=== PATIENT | female | born 1955 ===

== ENCOUNTER 2021-05-19 13:21 | Inpatient (IN) | payer BC ==
[~2021-05-19] VITALS: Ht 152.4 cm; Wt 83.9 kg
[2021-05-19] MEDS ORDERED: CLOP75TA28 PO (15:27)
[2021-05-19] MEDS ORDERED: ASPI-1238 PO (15:27)
[2021-05-19] MEDS ORDERED: LISI10TA25 PO (15:27)
[2021-05-19] MEDS ORDERED: ATOR40TA70 PO (15:27)
[2021-05-19] MEDS ORDERED: LOPERAMIDE 2 MG (IMODIUM) TABLET PO PRN (16:30)
[2021-05-19] MEDS ORDERED: DOCUSATE SODIUM 100 MG (COLACE) CAP PO PRN (16:30)
[2021-05-19] MEDS ORDERED: MELATONIN 3 MG TABLET PO PRN (16:30)
[2021-05-19] MEDS ORDERED: guaiFENesin/CODEINE (ROBITUSSIN AC) 10ML UDC PO PRN (16:30)
[2021-05-19] MEDS ORDERED: FLEET ENEMA ADULT 1 EA BTL PR PRN (16:30)
[2021-05-19] MEDS ORDERED: diphenhydrAMINE 25 MG TAB (BENADRYL) PO PRN (16:30)
[2021-05-19] MEDS ORDERED: BISACODYL 10 MG SUPP (DULCOLAX) PR PRN (16:30)
[2021-05-19] MEDS ORDERED: LACTULOSE SYRUP 10GM/15ML (ENULOSE) 30ML UDC PO PRN (16:30)
[2021-05-19] MEDS ORDERED: NALOXONE 0.4 MG/ML 1 ML (NARCAN) VIAL IV PRN (16:30)
[2021-05-19] MEDS ORDERED: ALPRAZolam 0.25 MG (XANAX) TAB PO PRN (16:30)
[2021-05-19] MEDS ORDERED: ONDANSETRON 4 MG (ZOFRAN) ORAL DISSOLVE TAB PO PRN (16:30)
[2021-05-19] MEDS: polyethylene glycoL POWDER 17 GM (MIRALAX) PACK PO SCH (19:54)
[2021-05-19 20:00] VITALS: BP 151/66
[2021-05-19] MEDS: SENNA W/DOCUSATE (SENOKOT S) TABLET PO SCH (20:34)
[2021-05-19] MEDS: DOCUSATE SODIUM 100 MG (COLACE) CAP PO SCH (21:00)
--- NOTE | 2021-05-20 05:24 | PM&R Post Admission Assessment ---
PM&R Date of Visit: May 20, 2021 Time of Visit: 10:00 History of Present Illness CC: CVA HPI: This is a 65yoWF patient who presented from [facility] following a CVA with residual left sided weakness. MRI revealed thalamic CVA. She is doing well currently and has settled in well. No pain reported. I communicate with her with medical Swedish. Checked meds and labs. I have reviewed [facility] notes. [facility] notes: Patient admitted with acute thalmic stroke. No large arterial occlusion was present on CTA head/neck. She has been started on ASA/Plavix therapy. She is working with PT and OT services who are recommending inpatient acute rehab. She has had improvement of her overall left side weakness. There is only mild residual weakness noted of her left environmental services aide strength and upper arm weakness. Her blood pressure is much better controlled on current lisinopril. Case management is assisting with acute rehab bed placement if possible. Admission History and Physical Hx Present Illness Hanh Pierre Luiza a 65 y.o.white femalea patient of Ayesha Yao FNPwho is being admitted through the emergency room with chief complaint of left-sided weakness and numbness. The history and physical was obtained from the patient utilizing a pilot plant supervisor that was approved by the patient. She tells me that she woke up this morning and could not feel her left side and did have a headache around her right eye. She states she still has a dull headache how ever it is much improved since admission. She still not can feel her left side and complains of generalized weakness to the left side. Upon my neurological exam the patient definitely has left-sided weakness, including extremely poor environmental services aide strength in her left hand, mild left arm pronator drift. Very faint left facial droop present. I did recontact the teleneurology who is asked me to repeat a stat CTA which has been ordered. She has already been given aspirin, he does states she is not a TPA candidate at this time. Obviously if there is a large clot we will seek further recommendations at that time. She has been started on low-dose aspirin, and I will start a statin therapy tonight. Routine labs have been ordered. The patient does tell me that she thinks she takes losartan for her blood pressure however after contacting her pharmacy the patien t is not taking any medications at this time. The patient's son did tell me that she does have lupus and does have some generalized weakness however nothing is neurologically specific. The patient does tell me that her mother of a large embolic stroke. She is being admitted for a TIA work-up to include stat CTA of her head and neck this afternoon, we will do an MRI tomorrow. Echocardiogram with bubble study is pending at this time. I will check her hemoglobin A1c along with her lipid panel. We will start blood pressure management in the morning however we will let her permissively be hypertensive less than 170 systolically and less than 90 diastolically. I have explained all of this plan of care to the patient with the chip tuner and she is amenable to this plan of care at this time. Past Medical History: The patient tells me that her past medical history includes high blood pressure and that she thinks she is prediabetic. She did not tell me anything of her lupus. And she could not tell me who her primary care physician was. Past Surgical History: She states her only surgical history has been that of a tonsillectomy. Family History: She states that her both of her parents are , her mother at 91 of a large embolic stroke. She did not know much in about her father. She has 1 sister that is alive but has lower extremity paralysis secondary to an accident. She has 2 brothers both are healthy one lives in [place] and the other 1 lives in [place]. Social History: The patient is however she does have 3 children 2 boys and one girl, one of her boys lives in [facility], one of her boys lives in [place] and her daughter was in [place]. She only completed through the fifth grade. She works at the [employer]. She does not smoke, consume alcohol and denies illicit drug use. She does state that she lives by herself. Allergies: She denies any drug or food allergies however according to her electronic medical record she is allergic to shellfish containing products and pork- containing products. Prior to Admission medications Not on File ROS Constitutional:Denies fever, chills, increased fatigue,malaise or decreased appetite Neurological:She states that she has a headache pretty much every day, she does have some generalized weakness however she states it is much more pronounced in her left side today than normal. She also tells me that she has pretty signi ficant sciatica which is usually down her right side. Head and Neck: Denies pain EYE:no blurred vision, double vision, does complain of some numbness to her right eye. ENT:, denies throat or ear pain, denies increased nasal congestion or rhinorrhea. Cardiac:no chest pain, palpitations Respiratory: Denies cough, shortness of breath, wheezing, or sputum production GI:Denies nausea, vomiting, diarrhea, constipation or abdominal pain :denies dysuria, hematuria or urinary frequency or incontinence. MS:denies edema, pain, tenderness, redness or warmth to any joint area, does complain of generalized weakness hematologic: Denies any bleeding tendencies, or easy bruising Endocrine:denies heat or cold intolerances, does tell me that she is prediabetic Psychiatric: denies any severe depression or thoughts of self harm Integumentary: Denies any rashes, lesions or masses Physical Exam Constitutional: Well developed well nourishedobese female who is non ill appearing at present with stable vital signs Neurological: awake, alert and oriented,there is definitely decreased sensory appreciation noted to her entire left side, she does have some mild to moderate left pronator drift, she also has left arm weakness including pretty significant left hand environmental services aide strength, she utilizes her shoulder muscles to lift her left arm. Head and Neck: No obvious trauam, normocephalic, without masses or lesions. No masses present, no tracheal deviation present. No enlarged thyroid tissue present. No cervical adenopathy present. EYE:PERRL with normal accomodation. EOM's intact ENT:, No oropharynx edema or erythema present. Nasal membranes are pink and moist.Tongue is midline. Cardiac:Regular rate and rhythm, normal S1/S2 present. No gallops, rubs or murmurs appreciated. No carotid bruits are present. All pulses are intact +1 amplitude. All extremities are warm and pink without evidence of edema. No JVD present. Respiratory: Lung sounds are clear throughout all lung maria. Respirationsare regularand even with out use of accessory muscles. Patient has normal chest expansion and symmetry. GI:Abdomen is soft and non tender. No masses are present. Bowel sounds are normal and noted to all quadrants. : No supra pubic or CVA tenderness present. Rectal: Deferred. MS:No joint edema, warmth or redness are present. Joint range of motion is good without any tenderness appreciated Hematologic: No obvious bruising is noted. Psychiatric: Patient is pleasant, smiling and maintains eye contact during conversation. Integumentary: No rashes, lesions or masses are noted. Skin is warm, dry and pink in color. Mucous membranes are pink and moist. Adequate capillary refill present. Narrative: XR CHEST PA OR AP 1 VW Ordering provider: EMMY RYAN History: 65 years Female with See Reason for Exam. Other - Please see comments. Weakness. Technique: Single view of the chest. Comparison: 04/05/2019. FINDINGS: Pulmonary vascular congestion. Mild hazy opacity in the medial right lung base. No pneumothorax nor pleural effusion. Heart size is normal. No acute displaced fracture. CT HEAD WO CONTRAST (Final result) Result time05/11/21 10:47:55 Final result by Dane Calle DO (05/11/21 10:47:55) No acute intracranial hemorrhage, mass effect or midline shift. Narrative: CT head without contrast 05/11/2021 Dictated from location 12 INDICATION: 65 years Female presents with paresthesia COMPARISON: None TECHNIQUE: Contiguous axial head CT was performed. The examination was performed with mA or KV adjustment according to patient size, or iterative reconstruction technique. FINDINGS: There is no acute intracranial hemorrhage, mass effect or midline shift. The ventricles are symmetric and not dilated. The brain parenchyma and cook-white matter differentiation are maintain. There is tiny calcification in the medial superior left temporal lobe. The sulci are age appropriate. The basal cisterns are clear. The bony calvarium and skull base are intact. The mastoid air cells are clear. The paranasal sinuses are clear. The globes and orbits are symmetric. Impression Principal Problem: Transient ischemic attack (TIA) Active Problems: Essential hypertension Intractable chronic cluster headache Systemic lupus erythematosus (SLE) inhibitor Plan 1. Admit observation 2. NIH stroke scale 3. Reconsult teleneurology 4. Start aspirin therapy tomorrow 5. Add statin 6. Stat CTA of brain and neck 7. MRI tomorrow 8. Echo with bubble study 9. Allow permissive hypertension systolic less than 170 diastolic less than 95 10. Start antihypertensives tomorrow 11. Check hemoglobin A1c 12. Check lipid panel 13. PT and OT consult 14. Telemetry monitoring 15. Low-dose Xarelto for VTE prophylaxis 16. Other orders as needed PIYUSH Waite-BC Cosigned by: Trena Romero DO at 05/11/2021 9:51 PM Past Ovpqkyz-Vadivk-Bydehx Hx Past Med/Social Hx: Reviewed Nursing Past Med/Soc Hx, Reviewed and Corrections made Patient Social History Marrital Status: Employed/Student: employed ([employer]) Alcohol Use: Denies Use Smoking Status: Never a Smoker Past Medical History Neurological: Stroke PM&R Allergy/Meds/Data Review Allergies Coded Allergies: Pork/Porcine Containing Products (Verified Allergy, Unknown, Hives, 05/19/21) shellfish derived (Verified Allergy, Unknown, Hives, 05/19/21) Home Medications Scheduled Aspirin (Aspirin EC), 81 MG PO DAILY, (Reported) Atorvastatin Calcium (Atorvastatin Calcium), 40 MG PO HS, (Reported) Clopidogrel Bisulfate (Clopidogrel), 75 MG PO DAILY, (Reported) Lisinopril (Lisinopril), 10 MG PO DAILY, (Reported) Current Medications Current Medications Reviewed Review of Systems Constitutional: see HPI, malaise, weakness EENTM: no symptoms reported Respiratory: no symptoms reported Cardiovascular: no symptoms reported Gastrointestinal: no symptoms reported Genitourinary: no symptoms reported Musculoskeletal: no symptoms reported Skin: no symptoms reported Psychiatric/Neurological: Depressed, Numbness, Weakness Physical Exam Physical Exam Vital Signs Vital Signs - First Documented 05/19/21 05/19/21 16:54 20:00 Temp 36.5 Pulse 74 Resp 20 B/P (MAP) 151/66 (94) Pulse Ox 97 O2 Delivery Room Air Capillary Refill : Height, Weight, BMI Height: '" Weight: lbs. oz. kg; 34.18 BMI Method: General Appearance: No Apparent Distress, WD/WN, Obese Eyes: Bilateral Eye Normal Inspection, Bilateral Eye PERRL HEENT: PERRL/EOMI, Normal ENT Inspection, Pharynx Normal Neck: Full Range of Motion, Normal Inspection, Non Tender, Supple, Carotid Bruit Respiratory: Chest Non Tender, Lungs Clear, Normal Breath Sounds, No Accessory Muscle Use, No Respiratory Distress Cardiovascular: Regular Rate, Rhythm, No Edema, No Gallop, No JVD, No Murmur, Normal Peripheral Pulses Gastrointestinal: Normal Bowel Sounds, No Organomegaly, No Pulsatile Mass, Non Tender, Soft Back: Normal Inspection, No CVA Tenderness, No Vertebral Tenderness Extremity: Normal Capillary Refill, Normal Inspection, Normal Range of Motion, Non Tender, No Calf Tenderness, No Pedal Edema Neurologic/Psychiatric: Alert, Oriented x3, Normal Mood/Affect, Abnormal Gait (off blaance), Motor Weakness (left sided but generalized) Skin: Normal Color, Warm/Dry Lymphatic: No Adenopathy PM&R Medical Assessment & Plan REHAB/MEDICAL ASSESSMENT AND PLAN: REHAB IMPAIRMENT GROUP: CVA ETIOLOGIC DIAGNOSIS: CVA The comorbidities that impact the patients function and/or functional outcome by: Swedish speaking, lives alone, newly retired, fall risk REHAB PLAN: The patient is being admitted to our comprehensive inpatient rehabilitation facility and can tolerate the intensity of service consisting of at least: 180 minutes of therapy a day, 5 out of 7 days a week Rehab treatment will consist of: PT OT will focus on regaining ambulatory skills and fall risk prevention and increase ADL's in order to return home to live alone The patient/family has a good understanding of our discharge process and will benefit from an interdisciplinary inpatient rehabilitation program. The patient has potential to make improvement and is in need of at least two of the following multidisciplinary therapies including but not limited to physical, occupational, speech, and prosthetics and orthotics. Additionally the patient will need services from respiratory, nutritional services, wound care, psychology, etc. (Customize this to each patient). Given the patients complex condition and risk of further medical complications, rehabilitation services cannot be safely or effectively provided at a lower level of care such as a snf facility. BARRIERS TO DISCHARGE: Lives alone ESTIMATED LOS: 10 days DISPOSITION: Home RELEVANT CHANGES SINCE PREADMISSION SCREENING: I have compared the patients medical and functional status at the time of the preadmission screening and there are: no changes PROGNOSIS: Good REHABILITATION GOALS: 1. PT OT will focus on regaining ambulatory skills and fall risk prevention and increase ADL's in order to return home to live alone All the above goals were reviewed with the patient and he/she is in agreement. By signing this document, I acknowledge that I have personally performed a full physical examination on this patient within 24 hours of admission to this inpatient rehabilitation facility and have determined the patient to be able to tolerate the above course of treatment at an intensive level for a reasonable period of time. I will be completing a detailed individualized Plan of Care for this patient by day #4 of the patients stay based upon the Preadmission Screen, the Post-Admission Evaluation, and the therapy evaluations. Admission Dx/Comorbidities: (1) CVA (cerebral vascular accident) ICD Codes: I63.9 - Cerebral infarction, unspecified Assessment/Plan Assessment and Plan Assess & Plan/Chief Complaint Assessment: CVA with left sided weakness Swedish speaking only HTN HLP Cluster NEIL hx Plan: IRF protocol Monitor BP Cardiology consultation KRYSTIAN ROSADO DO May 20, 2021 05:24
[2021-05-20 05:50] LABS: BASOPHILS # (AUTO) 0.1 10^3/uL (0.0-0.1); BASOPHILS % (AUTO) 1 % (0-10); EOSINOPHILS # (AUTO) 0.1 10^3/uL (0.0-0.3); EOSINOPHILS % (AUTO) 2 % (0-10); HEMATOCRIT 40 % (35-52); HEMOGLOBIN 12.2 g/dL (11.5-16.0); LYMPHOCYTES # (AUTO) 2.1 10^3/uL (1.0-4.0); LYMPHOCYTES % (AUTO) 33 % (12-44); MEAN CORPUSCULAR HEMOGLOBIN 29 pg (25-34); MEAN CORPUSCULAR HGB CONC 31 g/dL (32-36); MEAN CORPUSCULAR VOLUME 94 fL (80-99); MEAN PLATELET VOLUME 9.5 fL (9.0-12.2); MONOCYTES # (AUTO) 0.5 10^3/uL (0.0-1.0); MONOCYTES % (AUTO) 8 % (0-12); NEUTROPHILS # (AUTO) 3.5 10^3/uL (1.8-7.8); NEUTROPHILS % (AUTO) 55 % (42-75); PLATELET COUNT 284 10^3/uL (130-400); WHITE BLOOD COUNT 6.3 10^3/uL (4.3-11.0)
[2021-05-20 05:58] LABS: ALBUMIN 3.8 GM/DL (3.2-4.5)
[2021-05-20 05:59] LABS: POTASSIUM 4.3 MMOL/L (3.6-5.0)
[2021-05-20 06:00] LABS: CALCIUM 9.6 MG/DL (8.5-10.1)
[2021-05-20 06:01] LABS: TOTAL PROTEIN 7.4 GM/DL (6.4-8.2)
[2021-05-20 06:03] LABS: BILIRUBIN,TOTAL 0.4 MG/DL (0.1-1.0)
[2021-05-20 06:05] LABS: CREATININE SERUM 0.73 MG/DL (0.60-1.30)
[2021-05-20 07:40] VITALS: BP 138/63
[2021-05-20] MEDS: CLOPIDOGREL 75 MG (PLAVIX) TABLET PO SCH (08:13)
[2021-05-20] MEDS: lisINopril 10 MG (PRINIVIL) TABLET PO SCH (08:13)
[2021-05-20] MEDS: ASPIRIN E.C. 81 MG (ECOTRIN) TAB PO SCH (08:13)
[2021-05-20] MEDS: polyethylene glycoL POWDER 17 GM (MIRALAX) PACK PO SCH ×2 (08:14→19:28)
[2021-05-20] MEDS: SENNA W/DOCUSATE (SENOKOT S) TABLET PO SCH ×2 (08:15→19:28)
[2021-05-20] MEDS: DOCUSATE SODIUM 100 MG (COLACE) CAP PO SCH ×2 (09:00→19:27)
--- NOTE | 2021-05-20 11:08 | Occupational Ther Daily Note ---
OT Current Status-Daily Note Subjective Pt denies any pain. She frequently thanked God for getting better. Mental Status/Objective Patient Orientation: Person, Situation Pt able to understand very little Tanzanian. Google translate utilized for PLOF information. Pt appeared to have some comprehension deficits, but difficulty to fully assess cognition secondary to language barrier. She was able to follow visual cues during functional assessment. ADL-Treatment Therapy Code Descriptions/Definitions Functional Brinson Measure: 0=Not Assessed/NA 4=Minimal Assistance 1=Total Assistance 5=Supervision or Setup 2=Maximal Assistance 6=Modified Brinson 3=Moderate Assistance 7=Complete IndependenceSCALE: Activities may be completed with or without assistive devices. 0-Cyfzhuexix-xgiqpuh completes the activity by him/herself with no assistance from a helper. 5-Set-up or Clean-up Assistance-helper sets up or cleans up; patient completes activity. [place] assists only prior to or following the activity. 4-Supervision or Touching Assistance-helper provides verbal cues and/or touching/steadying and/or contact guard assistance as patient completes activity. Assistance may be provided throughout the activity or intermittently. 3-Partial/Moderate Assistance-helper does LESS THAN HALF the effort. [place] lifts, holds or supports trunk or limbs, but provides less than half the effort. 2-Substantial/Maximal Assistance-helper does MORE THAN HALF the effort. [place] l ifts or holds trunk or limbs and provides more than half the effort. 2-Uwdntywob-oyabgd does ALL the effort. Patient does none of the effort to complete the activity. Or, the assistance of 2 or more helpers is required for the patient to complete the activity. If activity was not attempted, code reason: 7-Patient Refused. 9-Not Applicable-not attempted and the patient did not perform the activity before the current illness, exacerbation or injury. 10-Not Attempted due to Environmental Limitations-(lack of equipment, weather restraints, etc.). 88-Not Attempted due to Medical Conditions or Safety Concerns. Oral Hygiene (QC): 4 (sup) Bathing Location: L Arm, R Arm, L Upper Leg, R Upper Leg, L Lower Leg (includin g foot), R Lower Leg (including foot), Chest, Abdomen, Buttocks, Perineal Area Shower/Bathe Self (QC): 4 (Intermittent CGA for safety only when lifting foot off floor or bending at waist to reach feet. ) Upper Body Dressing (QC): 5 Lower Body Dressing (QC): 4 (Supervision/set up) On/Off Footwear: 4 (CGA as pt stood and slid foot into shoe. ) Toileting Hygiene (QC): 4 (sba) Toilet Transfer (QC): 4 (sba) OT Journeyman Lineman Goals Senior Care Goals 1=Demonstrate adherence to instructed precautions during ADL tasks. 2=Patient will verbalize/demonstrate understanding of assistive devices/modifications for ADL. 3=Patient will improve strength/tolerance for activity to enable patient to perform ADL's. OT Education/Plan Treatment Plan/Plan of Care Patient would benefit from OT for education, treatment and training to promote independence in ADL's, mobility, safety and/or upper extremity function for ADL's. Erica Chun OT May 20, 2021 11:08
--- NOTE | 2021-05-20 11:20 | Occupational Therapy Eval ---
OT Evaluation-General/PLF Medical Diagnosis Admission Date May 19, 2021 at 16:17 Medical Diagnosis: CVA Onset Date: May 11, 2021 Therapy Diagnosis Therapy Diagnosis: Impaired IADLs/ADLs Precautions Precautions/Isolations: Fall Prevention, Standard Precautions Referral Referral Reason: Evaluation/Treatment Medical History Pertinent Medical History: GERD, HTN Additional Medical History DDD, Lupus, DVT Reviewed History: Yes Social History Home: Multilevel Current Living Status: Alone Steps Into Home: 2 Direct admit from [facility] in [facility] with acute thalamic stroke. Prior to admission, pt reports living alone in a 2 story home. All needs can be met on main level. Pt reports having a tub/shower but that the shower head does not work and instead has been standing in tub of water to bathe. She was indep with ADLs and IADLs. 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 She has a niece that lives close by but she reports that she will not be able to assist due to work schedule during days. She also has a sister who lives nearby but verbalizes that her sister recently broke her leg and will also be unable to help. ADL-Prior Level of Function SCALE: Activities may be completed with or without assistive devices. 0-Ufnrkhosmu-fiwzrdq completes the activity by him/herself with no assistance from a helper. 5-Set-up or Clean-up Assistance-helper sets up or cleans up; patient completes activity. [place] assists only prior to or following the activity. 4-Supervision or Touching Assistance-helper provides verbal cues and/or touching/steadying and/or contact guard assistance as patient completes activity. Assistance may be provided throughout the activity or intermittently. 3-Partial/Moderate Assistance-helper does LESS THAN HALF the effort. [place] lifts, holds or supports trunk or limbs, but provides less than half the effort. 2-Substantial/Maximal Assistance-helper does MORE THAN HALF the effort. [place] lifts or holds trunk or limbs and provides more than half the effort. 1-Moqocdyof-qpkgqu does ALL the effort. Patient does none of the effort to complete the activity. Or, the assistance of 2 or more helpers is required for the patient to complete the activity. If activity was not attempted, code reason: 7-Patient Refused. 9-Not Applicable-not attempted and the patient did not perform the activity before the current illness, exacerbation or injury. 10-Not Attempted due to Environmental Limitations-(lack of equipment, weather restraints, etc.). 88-Not Attempted due to Medical Conditions or Safety Concerns. Self Care: Independent Functional Cognition: Independent DME/Equipment: Tub/Shower Drive Self: Yes OT Current Status Subjective Pt denies pain. Frequently thanking God for getting better. Mental Status/Objective Patient Orientation: Person, Situation Pt able to understand very little Turkmen. [employer] translate utilized for PLOF information. Pt appeared to have some comprehension deficits, but difficulty to fully assess cognition secondary to language barrier. She was able to follow visual cues during functional assessment. Current Glasses/Contacts: Yes Hearing Aids: No Dentures/Partials: No Upper Extremity ROM Increased time for L digit opposition. All other joints WFL Upper Extremity Sensation Intact Upper Extremity Strength 3+/5 throughout ADL-Treatment Eating (QC): 5 Oral Hygiene (QC): 4 Shower/Bathe Self (QC): 4 (Intermittent CGA for safety when bending at waist or lifting foot off floor in standing) Upper Body Dressing (QC): 5 Lower Body Dressing (QC): 4 (Sup/SBA) On/Off Footwear (QC): 4 (CGA) Toileting Hygiene (QC): 4 (SBA) Pt sitting in chair at OT arrival. Agreeable to eval. Sit<>Stand with sup, extra time for problem solving correct hand placement. Pt ambulated short distances within room with SBA and use of walker. Without AD, pt needing CGA/Min A, sli ghtly apprehensive when not using assistive device. Shower performed, pt encouraged to perform majority in standing as this is how she performs at baseline. Intermittent CGA for safety as she bent forward at waist or lifted foot off floor in order to reach/wash foot. Intermittent single UE on grab bar throughout task. Pt educated on use of shower chair for improved safety/energy conservation during task. No LOB or unsteadiness noted. She sat on shower chair to don clothing, Sup/set up, no physical assist required. She stood at sink for oral care and to comb hair, zero UE support, sup for safety. Pt appears to have fair activity tolerance throughout ADLs. Intermittent visual cues/hand gestures provided due to language barrier. Education OT Patient Education: Energy conservation, Modified ADL techniques, Progress toward Goal/Update tx plan, Purpose of tx/functional activities, Rehab process Teaching Recipient: Patient Teaching Methods: Demonstration, Discussion Response to Teaching: Verbalize Understanding, Return Demonstration, Reinforce ment Needed OT Short Term Goals Short Term Goals Eatin Oral hygiene: 6 Toileting hygiene: 6 Shower/bathe self: 6 Upper body dressin Lower body dressin Putting on/taking off footwear: 6 OT [facility] Goals [facility] Goals Eating (QC): 6 Oral Hygiene (QC): 6 Toileting Hygiene (QC): 6 Shower/Bathe Self (QC): 6 Upper Body Dressing (QC): 6 Lower Body Dressing (QC): 6 On/Off Footwear (QC): 6 1=Demonstrate adherence to instructed precautions during ADL tasks. 2=Patient will verbalize/demonstrate understanding of assistive devices/ modifications for ADL. 3=Patient will improve strength/tolerance for activity to enable patient to perform ADL's. Pt will complete simple homemaking task with SBA. OT Education/Plan Problem List/Assessment Assessment: Decreased UE Strength, Impaired Funct Balance, Impaired I ADL's Discharge Recommendations Plan/Recommendations: Continue POC Equpiment Recommendations-D/C: Rails on Tub/Shower, Bath Chair Treatment Plan/Plan of Care Treatment,Training & Education: Yes Patient would benefit from OT for education, treatment and training to promote independence in ADL's, mobility, safety and/or upper extremity function for ADL's. Plan of Care: ADL Retraining, Functional Mobility, Group Exercise/Act as Ind, UE Funct Exercise/Act Treatment Duration: Jun 01, 2021 Frequency: At least 5 of 7 days/Wk (IRF) Estimated Hrs Per Day: 1.5 hours per day Agreement: Yes Rehab Potential: Good Time/GCodes Start Time: 10:00 Stop Time: 11:00 Total Time Billed (hr/min): 60 Billed Treatment Time 1, EVL, 1, ADL x3 Erica Chun OT May 20, 2021 11:20
--- NOTE | 2021-05-20 12:38 | Physical Therapy Evaluation ---
PT Evaluation-General Medical Diagnosis Admission Date May 19, 2021 at 16:17 Medical Diagnosis: CVA Onset Date: May 11, 2021 Therapy Diagnosis Therapy Diagnosis: impaired mobility, strength, endurance Precautions Precautions/Isolations: Fall Prevention, Standard Precautions Referral Physician: Christiana Norris DO Reason for Referral: Evaluation/Treatment Medical History Pertinent Medical History: GERD, HTN Reviewed History: Yes Social History Home: Multilevel Current Living Status: Alone Entry Into Home: Stairs With Railing PT Steps Into Home: 2 Prior Prior Level of Function SCALE: Activities may be completed with or without assistive devices. 1-Tzzcvslrhk-pvpsmwg completes the activity by him/herself with no assistance from a helper. 5-Set-up or Clean-up Assistance-helper sets up or cleans up; patient completes activity. [place] assists only prior to or following the activity. 4-Supervision or Touching Assistance-helper provides verbal cues and/or touching/steadying and/or contact guard assistance as patient completes activity. Assistance may be provided throughout the activity or intermittently. 3-Partial/Moderate Assistance-helper does LESS THAN HALF the effort. [place] lifts, holds or supports trunk or limbs, but provides less than half the effort. 2-Substantial/Maximal Assistance-helper does MORE THAN HALF the effort. [place] lifts or holds trunk or limbs and provides more than half the effort. 2-Bvrezdqxq-hskuwt does ALL the effort. Patient does none of the effort to c omplete the activity. Or, the assistance of 2 or more helpers is required for the patient to complete the activity. If activity was not attempted, code reason: 7-Patient Refused. 9-Not Applicable-not attempted and the patient did not perform the activity before the current illness, exacerbation or injury. 10-Not Attempted due to Environmental Limitations-(lack of equipment, weather restraints, etc.). 88-Not Attempted due to Medical Conditions or Safety Concerns. Bed Mobility: 6 Transfers (B,C,W/C): 6 Gait: 6 Stairs: 6 Indoor Mobility (Ambulation): Independent Stairs: Independent PT Evaluation-Current Subjective Patient in recliner pre tx, agrees to PT, has no complaints of pain. Pt/Family Goals to be independent at home Objective Patient Orientation: Person, Situation ROM/Strength ROM Lower Extremities WNL Strength Lower Extremities LLE (hip flexion 3/5, knee flexion 3+/5, knee extension 3+/5, dorsiflexion 3+/5), RLE (hip flexion 4/5, knee flexion 5/5, knee extension 5/5, dorsiflexion 4/5) Neuromuscular (Tone, Coordination, Reflexes) Difficult to test vision due to language barrier but patient states her vision is good. Sensory Vision: Functional Hearing: Functional Sensation Right Lower Extremit: Intact Sensation Left Lower Extremity: Impaired Sensation Lower Extremities Patient seems to have some numbness in her left foot. Transfers Roll Left & Right (QC): 6 Sit to Lying (QC): 6 Lying to Sitting/Side of Bed(Q: 6 Sit to Stand (QC): 4 Chair/Fnf-bn-Vdutc Xfer(QC): 4 Toilet Transfer (QC): 4 Car Transfer (QC): 4 Patient performs bed mobility and supine <-> sit with independence, sit <-> stand and transfers with CGA, car transfer CGA. Patient needs occasional safety cues and cues for hand placement. Gait Does the Patient Walk?: Yes Mode of Locomotion: Walk Anticipated Mode of Locomotion: Walk Walk 10 feet (QC): 4 Walk 50 ft with 2 Turns(QC): 4 Walk 150 ft (QC): 4 Walking 10ft/uneven surface-QC: 4 Distance: 200', 120, Gait Assistive Device: FWW Comments/Gait Description Patient can ambulate 200' with a rolling walker with CGA (including 50' with at least 2 turns of 90 degrees and 10' over an uneven surface). Patient ambulates slowly, has impaired coordination and possibly proprioception in her left leg. Wheelchair Training Wheel 50 ft with 2 turns (QC): 9 Wheel 150 ft (QC): 9 Stairs #of Steps: 4 1 Step (curb) (QC): 4 4 Steps (QC): 4 12 Steps (QC): 88 Patient can go up and down 4 steps using 2 handrails with CGA and cues for foot placement Balance Sitting Static: Normal Sitting Dynamic: Normal Standing Static: Fair Standing Dynamic: Fair Picking up an Object (QC): 4 Treatment NuStep level 5 for 15 min Assessment/Needs Patient in recliner post tx with nurse call, phone, tray, all needs met. Patient has impaired mobility, strength, endurance. She needs CGA for transfers and ambulation, has impaired coordination in her left leg. After getting back to her room she was SOB and clutching her chest. She was asked if she had chest pain and she said she was just tired. She does needs frequent rest breaks due to fatigue. Rehab Potential: Fair PT Short Term Goals Short Term Goals Time Frame: May 27, 2021 Roll Left & Right: 6 Sit to lyin Lying to sitting on side of be: 6 Sit to stand: 4 Chair/ncz-od-mihes transfer: 4 (SBA) Walk 10 feet: 4 (SBA) Walk 50 feet with two turns: 4 (SBA) Walk 150 feet: 4 (SBA) PT Development Scientist Goals Senior Living Goals PT Development Scientist Goals Time Frame: Jun 10, 2021 Roll Left & Right (QC): 6 Sit to Lying (QC): 6 Lying-Sitting on Side/Bed(QC): 6 Sit to Stand (QC): 5 Chair/Xtp-dd-[place] Xfer(QC): 5 Toilet Transfer (QC): 5 Car Transfer (QC): 5 Does the Patient Walk: Yes Walk 10 feet (QC): 5 Walk 50ft with 2 Turns (QC): 5 Walk 150 ft (QC): 5 Walking 10ft on Uneven Surface: 5 1 Step (curb) (QC): 4 (SBA) 4 Steps (QC): 4 (SBA) 12 Steps (QC): 88 Picking up an Object (QC): 4 (SBA) Wheel 50 feet with 2 turns (QC: 9 Wheel 150 feet: 9 PT Plan Problem List Problem List: Activity Tolerance, Functional Strength, Safety, Balance, Gait, Transfer, Bed Mobility, ROM Treatment/Plan Treatment Plan: Continue Plan of Care Treatment Plan: Bed Mobility, Education, Functional Activity Tee, Functional Strength, Group Therapy, Gait, Safety, Therapeutic Exercise, Transfers Treatment Duration: Jun 10, 2021 Frequency: At least 5 of 7 days/Wk (IRF) Estimated Hrs Per Day: 1.5 hours per day Patient and/or Family Agrees t: Yes Safety Risks/Education Patient Education: Gait Training, Transfer Techniques, Steps, Correct Positioning, Safety Issues Teaching Recipient: Patient Teaching Methods: Demonstration, Discussion Response to Teaching: Reinforcement Needed Discharge Recommendations Plan Patient will perform bed mobility and transfer training, balance and endurance training, functional strengthening, stair training, gait training, and education, to improve functional mobility and independence at home. Therapy Discharge Recommendati: Home & Family, Post Acute PT Time/GCodes Time In: 1100 Time Out: 1200 Total Billed Treatment Time: 60 Total Billed Treatment 1 visit EVM 30' EX 15' GT 15' AWAIS TERRY PT May 20, 2021 12:38
--- NOTE | 2021-05-20 14:27 | Therapy Group Daily Note ---
Therapy Daily Group Note Patient Education Topic Other List Below (ARU, transfers, bed mobility) Exercises LE Seated Exercise, UE Exercise Session Ratio (pt:therapist): 4:1 Goal of Session: Education on ARU Expectations, UE/LE Strengthing, Safety with Transfers Goal Met for this Session: Yes Pt Benefit of Group: Contributions to Others, F/U Use of Strategies @Home, Increased Functional Safety, Increased Functional Strength, Improved Cognition, Recognition of Peers, Socialization Other/Notes Pt ambulated using FWW to [facility] area for OT/PT group. Group consisted of introductions (name, place living, favorite restaurant), socialization, B UE/LE seated exercises and education on bed mobility/transfers. Pt introduced self appropriately and actively listened to peers. Pt acknowledged understanding of educational topics by nodding head in affirmation/verbalization. Pt able to complete B UE/LE seated exercises without difficulty. After therapy, pt lying in bed with call light/phone in reach. All needs met in room. Start Time: 13:00 Stop Time: 14:10 Total Billed Treatment Time: 70 Total Billed Treatment 1-SASHA DYSNO May 20, 2021 14:27
[2021-05-20 20:00] VITALS: BP 138/77
--- NOTE | 2021-05-21 05:39 | PM&R Progress Note ---
Subjective HPI/CC On Admission Date Seen by Provider: May 21, 2021 Time Seen by Provider: 12:00 Subjective/Events-last exam 05/21/2021: Patient doing really well Reports left-sided tingling Bowels moved yesterday Left shoulder pain alleviated with Tylenol Walks pretty well Review of Systems General: Fatigue, Malaise Neurological: Weakness, Incoordination Objective Exam Vital Signs Vital Signs Date Time Temp Pulse Resp B/P (MAP) Pulse Ox O2 Delivery O2 Flow Rate FiO2 05/21/21 20:10 Room Air 05/21/21 20:00 36.4 78 20 122/59 (80) 95 Capillary Refill : General Appearance: No Apparent Distress, WD/WN, Chronically ill, Obese HEENT: PERRL/EOMI, Normal ENT Inspection, Pharynx Normal Neck: Full Range of Motion, Normal Inspection, Non Tender, Supple, Carotid Bruit Respiratory: Chest Non Tender, Lungs Clear, Normal Breath Sounds, No Accessory Muscle Use, No Respiratory Distress Cardiovascular: Regular Rate, Rhythm, No Edema, No Gallop, No JVD, No Murmur, Normal Peripheral Pulses Gastrointestinal: Normal Bowel Sounds, No Organomegaly, No Pulsatile Mass, Non Tender, Soft Back: Normal Inspection, No CVA Tenderness, No Vertebral Tenderness Extremity: Normal Capillary Refill, Normal Inspection, Normal Range of Motion, Non Tender, No Calf Tenderness, No Pedal Edema Neurologic/Psychiatric: Alert, Oriented x3, Normal Mood/Affect, Abnormal Gait (off blaance), Motor Weakness (left sided but generalized) Skin: Normal Color, Warm/Dry Lymphatic: No Adenopathy Results/Procedures Lab Patient resulted labs reviewed. FIM Transfers Therapy Code Descriptions/Definitions Functional [place] Measure: 0=Not Assessed/NA 4=Minimal Assistance 1=Total Assistance 5=Supervision or Setup 2=Maximal Assistance 6=Modified [place] 3=Moderate Assistance 7=Complete IndependenceSCALE: Activities may be completed with or without assistive devices. 6-Evezmckwea-aavdpbx completes the activity by him/herself with no assistance from a helper. 5-Set-up or Clean-up Assistance-helper sets up or cleans up; patient completes activity. [place] assists only prior to or following the activity. 4-Supervision or Touching Assistance-helper provides verbal cues and/or touching/steadying and/or contact guard assistance as patient completes activity. Assistance may be provided throughout the activity or intermittently. 3-Partial/Moderate Assistance-helper does LESS THAN HALF the effort. [place] lifts, holds or supports trunk or limbs, but provides less than half the effort. 2-Substantial/Maximal Assistance-helper does MORE THAN HALF the effort. [place] lifts or holds trunk or limbs and provides more than half the effort. 2-Daoltrjwd-vlqopz does ALL the effort. Patient does none of the effort to complete the activity. Or, the assistance of 2 or more helpers is required for the patient to complete the activity. If activity was not attempted, code reason: 7-Patient Refused. 9-Not Applicable-not attempted and the patient did not perform the activity before the current illness, exacerbation or injury. 10-Not Attempted due to Environmental Limitations-(lack of equipment, weather restraints, etc.). 88-Not Attempted due to Medical Conditions or Safety Concerns. Roll Left to Right (QC): 6 Sit to Lying (QC): 6 Sit to Stand (QC): 4 Chair/Peg-gg-Ruaqd Xfer(QC): 4 Car Transfer (QC): 4 Gait Training Does the Patient Walk?: Yes Walk 10 feet (QC): 4 Walk 50 ft with 2 Turns(QC): 4 Walk 150 ft (QC): 4 Walking 10ft/uneven surface-QC: 4 Gait Assistive Device: FWW Wheelchair Training Does the Pt Use a Wheelchair?: No Wheel 50 ft with 2 turns (QC): 9 Wheel 150 ft (QC): 9 Stair Training #of Steps: 4 1 Step (curb) (QC): 4 4 Steps (QC): 4 12 Steps (QC): 88 Balance Picking up an Object (QC): 4 ADL-Treatment Eating (QC): 5 Oral Hygiene (QC): 4 Shower/Bathe Self (QC): 4 (Intermittent CGA for safety when bending at waist or lifting foot off floor in standing) Upper Body Dressing (QC): 5 Lower Body Dressing (QC): 4 (Sup/SBA) On/Off Footwear (QC): 4 (CGA) Toileting Hygiene (QC): 4 (SBA) Assessment/Plan Assessment and Plan Assess & Plan/Chief Complaint Assessment: CVA with left sided weakness Kiswahili speaking only HTN HLP Cluster NEIL hx Plan: IRF protocol Monitor BP Cardiology consultation 05/21/2021: Supportive care Intensive rehab Work on balance (1) CVA (cerebral vascular accident) KRYSTIAN ROSADO DO May 21, 2021 05:39
--- NOTE | 2021-05-21 05:41 | Individualized Plan of Care ---
Individualized Plan of Care Rehab Nursing IPOC Order Admission Date May 19, 2021 at 16:17 Current Orders Orders Admission Order(Inpt,Obs,Sdc) (05/19/21 16:26) Vital Signs: Per Unit Policy ( ,,00 (05/19/21 16:26) Elia Quigley (05/19/21 16:26) Sequential Compression Device .admit (05/19/21 16:26) Miniature Set Designer-Inpt Rehab Con (05/19/21 16:26) Rehab Nursing Orders-Ipoc (05/19/21 16:26) Physical Therapy Rehab Orders (05/19/21 16:26) Occupational Therapy Rehab Ord (05/19/21 16:26) Speech Therapy Rehab Orders (05/19/21 16:26) Cbc With Automated Diff (05/20/21 06:00) Comprehensive Metabolic Panel (05/20/21 06:00) Precautions (Aru) (05/19/21 16:26) Weekly Weight WEEK (05/19/21 16:26) Rehab-Intensity Of Therapy (05/19/21 16:26) Initiate Admission Nursing Pro .admission (05/19/21 16:26) Alprazolam Tablet (Xanax Tablet) (05/19/21 16:30) Calcium Carbonate Chew Tablet (Antacid C (05/19/21 16:30) Diphenhydramine Tablet (Benadryl Tablet) (05/19/21 16:30) Docusate Sodium Capsule (Colace Capsule) (05/19/21 21:00) Docusate Sodium Capsule (Colace Capsule) (05/19/21 16:30) Bisacodyl Suppository (Dulcolax Supposit (05/19/21 16:30) Lactulose Oral Solution (Enulose Oral So (05/19/21 16:30) Na Phos/Na Biphos Enema (Fleet Enema Curtis (05/19/21 16:30) Guaifenesin/Codeine Syrup (Robitussin Ac (05/19/21 16:30) Loperamide Tablet (Imodium Tablet) (05/19/21 16:30) Melatonin Tablet (Melatonin Tablet) (05/19/21 16:30) Polyethylene Glycol Powder Pkt (Miralax (05/19/21 21:00) Ondansetron Oral Dissolve Tab (Zofran (05/19/21 16:30) Senna S Tablet (Senokot S Tablet) (05/19/21 21:00) Therapeutic Activity Goals: .PRN (05/19/21 16:26) Nursing Communication (Order) (05/19/21 ) Naloxone Injection (Narcan Injection) (05/19/21 16:30) Acetaminophen Tablet (Tylenol Tablet) (05/19/21 16:30) Code/Resuscitation (05/19/21 16:26) Initiate Admission Nursing Pro .admission (05/19/21 16:26) Aspirin Enteric Coated Tablet (Ecotrin T (05/20/21 09:00) Atorvastatin Tablet (Lipitor Tablet) (05/19/21 21:00) Clopidogrel Tablet (Plavix Tablet) (05/20/21 09:00) Lisinopril Tablet (Zestril Tablet) (05/20/21 09:00) Heart Healthy (05/19/21 Dinner) Consult Cardiology (05/20/21 12:15) Patient Visit (05/20/21 ) Pt Eval Moderate Complexity (05/20/21 ) Exercise Therap, Ea 15 Min (05/20/21 ) Gait Training, Ea 15 Min (05/20/21 ) Follow-Up Appointment D/C (05/20/21 13:18) Patient Visit (05/20/21 ) Rehab Nursing Orders: Ongoing Assess. of Cognitive Status, Ongoing Assess. of Function Status, Bladder Management, Bladder Scan, Bladder Training, Bowel M anagement, Bowel Training, Disease Management & Educaiton, DVT Prophylaxis, Fall Prevention, Fluid/Electrolyte/Nutrition Mgmt, Infection Prevention, Medication Management & Education, Management of Risks & Complications, Management of Skin Intergrity, Nutrition Management, Pain Management, Patient/Family Support, Safety Management Intensity of Therapy to be met Patient to be seen: Min.3h per day/5 of 7d PT IPOC Problem List: Activity Tolerance, Functional Strength, Safety, Balance, Gait, Transfer, Bed Mobility, ROM Treatment Plan: Continue Plan of Care Bed Mobility, Education, Functional Activity Tee, Functional Strength, Group Therapy, Gait, Safety, Therapeutic Exercise, Transfers Treatment Duration: Jun 10, 2021 Frequency: At least 5 of 7 days/Wk (IRF) Estimated Hrs Per Day: 1.5 hours per day OT IPOC Problems: Decreased UE Strength, Impaired Funct Balance, Impaired I ADL's OT Treatment, Training and Edu: Yes Plan of Care: ADL Retraining, Functional Mobility, Group Exercise/Act as Ind, UE Funct Exercise/Act Treatment Duration: Jun 01, 2021 Frequency: At least 5 of 7 days/Wk (IRF) Estimated Hrs Per Day: 1.[address] IPOC Speech Therapy Treatment Plan: Discontinue ST Treatment Duration: May 21, 2021 Frequency: Modified Program (IRF) Estimated Hrs Per Day: Other Miniature Set Designer/Case Mgmt Miniature Set Designer/Case Managemen: Discharge Planning Dietitian/American History Professor Dietitian/American History Professor to monitor nutritional status and make changes and/or recommendations as needed and work with speech pathology on dietary upgrades as the occur. Physician IPOC Medical Issues being managed closely and that require the 24 hour availability of a physician: Patient with catastrophic CVA with new deficits and balance dysfunction will need close monitoring for decompensation Medical Issues: Bowel/Bladder Function, DVT Prophylaxis, Falls Precautions, Fluid/Electrolyte/Nutrition Balance, Infection Protection, Pain Management Brief Synthesis of Preadmission Screen, Post-Admission Evaluation, and Therapy Evaluations: PT OT will focus on regaining function of ambulatory skills with fall risk prevention and increasing ADL independence Medical Prognosis: Good Anticipated Length of Stay: 10 days KRYSTIAN ROSADO DO May 21, 2021 05:41
[2021-05-21] MEDS: DOCUSATE SODIUM 100 MG (COLACE) CAP PO SCH ×2 (07:33→19:26)
[2021-05-21] MEDS: SENNA W/DOCUSATE (SENOKOT S) TABLET PO SCH ×2 (07:33→19:26)
[2021-05-21] MEDS: lisINopril 10 MG (PRINIVIL) TABLET PO SCH (07:33)
[2021-05-21] MEDS: ASPIRIN E.C. 81 MG (ECOTRIN) TAB PO SCH (07:33)
[2021-05-21] MEDS: CLOPIDOGREL 75 MG (PLAVIX) TABLET PO SCH (07:33)
[2021-05-21] MEDS: ACETAMINOPHEN 500 MG TAB (TYLENOL) PO PRN (07:36)
[2021-05-21 07:50] VITALS: BP 142/64
[2021-05-21] MEDS: polyethylene glycoL POWDER 17 GM (MIRALAX) PACK PO SCH ×2 (08:04→19:26)
--- NOTE | 2021-05-21 08:53 | Physical Therapy Daily Note ---
PT Daily Note-Current Subjective Pt amb to bathroom w/ A from RN upon arrival. Pt agrees to tx. Pt doesn't c/o any pain. Mental Status Patient Orientation: Person, Situation Transfers SCALE: Activities may be completed with or without assistive devices. 5-Wlfecmsazv-bwcwlzy completes the activity by him/herself with no assistance from a helper. 5-Set-up or Clean-up Assistance-helper sets up or cleans up; patient completes activity. [place] assists only prior to or following the activity. 4-Supervision or Touching Assistance-helper provides verbal cues and/or touching/steadying and/or contact guard assistance as patient completes activity. Assistance may be provided throughout the activity or intermittently. 3-Partial/Moderate Assistance-helper does LESS THAN HALF the effort. [place] lifts, holds or supports trunk or limbs, but provides less than half the effort. 2-Substantial/Maximal Assistance-helper does MORE THAN HALF the effort. [place] lifts or holds trunk or limbs and provides more than half the effort. 3-Dlzqrcimt-subelm does ALL the effort. Patient does none of the effort to complete the activity. Or, the assistance of 2 or more helpers is required for the patient to complete the activity. If activity was not attempted, code reason: 7-Patient Refused. 9-Not Applicable-not attempted and the patient did not perform the activity before the current illness, exacerbation or injury. 10-Not Attempted due to Environmental Limitations-(lack of equipment, weather restraints, etc.). 88-Not Attempted due to Medical Conditions or Safety Concerns. Sit to Stand (QC): 5 Gait Training Does the Patient Walk?: Yes Distance: 250' x2 Walk 10 feet (QC): 4 Walk 50 ft with 2 Turns(QC): 4 Walk 150 ft (QC): 4 Gait Persons Needed: 1 Gait Assistive Device: FWW Pt requires CGAw/ amb. Pt shows slight delay in advancement of L LE. Overall gait steady w/ even stride. Exercises Seated Therapy Exercises: Long arc quads Seated Reps: 20 Standing: Hip Abduction, Hamstring curls, Heel/toe raises, Marching, Mini squats, Sit to Stand, Side steps, Unilateral stance Standing Reps: 20 Pt SLS 1 min on each LE w/ support from B UE on // bars. Treatments Pt uses bathroom at beginning of tx, pt able to doff/don pants CGA. Pt washes hands and brushes teeth unsupported w/ CGA. Pt amb around IRU and enters therapy gym. Pt performs standing ex followed by seated ex. Pt amb around unit and returns to room. Pt left with all needs met, call light in hand. Assessment Current Status: Good Progress Pt CGA for all transfers and amb. Limited activity d/t language barrier. PT Short Term Goals Short Term Goals Time Frame: May 27, 2021 Roll Left & Right: 6 Sit to lyin Lying to sitting on side of be: 6 Sit to stand: 4 Chair/hci-mn-cxeoz transfer: 4 (SBA) Walk 10 feet: 4 (SBA) Walk 50 feet with two turns: 4 (SBA) Walk 150 feet: 4 (SBA) PT Income Tax Expert Goals Fci Goals PT Fci Goals Time Frame: Jun 10, 2021 Roll Left & Right (QC): 6 Sit to Lying (QC): 6 Lying-Sitting on Side/Bed(QC): 6 Sit to Stand (QC): 5 Chair/Nrn-ky-Rfwqa Xfer(QC): 5 Toilet Transfer (QC): 5 Car Transfer (QC): 5 Does the Patient Walk: Yes Walk 10 feet (QC): 5 Walk 50ft with 2 Turns (QC): 5 Walk 150 ft (QC): 5 Walking 10ft on Uneven Surface: 5 1 Step (curb) (QC): 4 (SBA) 4 Steps (QC): 4 (SBA) 12 Steps (QC): 88 Picking up an Object (QC): 4 (SBA) Wheel 50 feet with 2 turns (QC: 9 Wheel 150 feet: 9 PT Plan Treatment/Plan Treatment Plan: Continue Plan of Care Treatment Plan: Bed Mobility, Education, Functional Activity Tee, Functional Strength, Group Therapy, Gait, Safety, Therapeutic Exercise, Transfers Treatment Duration: Jun 10, 2021 Frequency: At least 5 of 7 days/Wk (IRF) Estimated Hrs Per Day: 1.5 hours per day Patient and/or Family Agrees t: Yes Safety Risks/Education Patient Education: Gait Training, Correct Positioning, Safety Issues Teaching Recipient: Patient Teaching Methods: Demonstration, Discussion Response to Teaching: Verbalize Understanding, Return Demonstration, Reinforcement Needed Time/GCodes Time In: 800 Time Out: 900 Total Billed Treatment Time: 60 Total Billed Treatment 1, FA, GT, EX x2 KIM,[facility] FRIT MAKER May 21, 2021 08:53
--- NOTE | 2021-05-21 10:22 | Consultation-Cardiology ---
HPI-Cardiology Cardiology Consultation: Date of Consultation 05/21/21 Time Seen by a Provider: 09:45 Date of Admission Attending Physician Christiana Norris DO Admitting Physician [place],Local Physician Consulting Physician SPENSER WOODS MD, MA, FACP, FACC, FSCAI, CCDS Physician requesting Cardiology consult HPI: Chief Complaint: Reason for consultation: Recent CVA, Hypertension HPI 65 yo woman recently transferred to Dr Norris's service at Inpatient Rehab at this hospital from [facility] where she had presented with L-sided weakness on 05/11/21 and was diagnosed with thromboembolic CVA (non-hemorragic) and placed on dual antiplatelet therapy. She speaks Slovak but was able to communicate adequately in Chinese at the time of this exam. She notes mild L-sided weakness, better compared to time of admission. She denies cp or palp or syncope or shortness of breath or swelling. She notes a h/o hypertension. Review of Systems-Cardiology Review of Systems Constitutional: malaise; No weight loss, No weight gain Eyes: No vision change Ears/Nose/Throat: No ear discharge, No nasal drainage, No recent hearing loss Respiratory: As described under HPI Cardiovascular: As described under HPI Gastrointestinal: No diarrhea, No nausea, No vomiting Genitourinary: No dysuria Musculoskeletal: No back pain Skin: No rash, No ulcerations Psychiatric/Neurological: As described under HPI Hematologic: No bleeding abnormalities ZFU-Apovkg-Mmzzic Hx Patient Social History Marrital Status: Employed/Student: employed ([employer]) Smoking Status: Never a Smoker Have you traveled recently?: No Alcohol Use?: No Pt feels they are or have been: No Past Medical History PMH As described under Assessment. Family Medical History Family Medical History: She does not report a fam h/o early CAD Allergies and Home Medications Allergies Coded Allergies: Pork/Porcine Containing Products (Verified Allergy, Unknown, Hives, 05/19/21) shellfish derived (Verified Allergy, Unknown, Hives, 05/19/21) Home Medications Aspirin 81 Mg Tablet., 81 MG PO DAILY, (Reported) Last Action: Continued Atorvastatin Calcium 40 Mg Tablet, 40 MG PO HS, (Reported) Last Action: Continued Clopidogrel Bisulfate 75 Mg Tablet, 75 MG PO DAILY, (Reported) Last Action: Continued Lisinopril 10 Mg Tablet, 10 MG PO DAILY, (Reported) Last Action: Continued Patient Home Medication List Home Medication List Reviewed: Yes Physical Exam-Cardiology Physical Exam Vital Signs/I&O 05/21/21 05/21/21 07:50 09:38 Temp 36.4 Pulse 74 Resp 18 B/P (MAP) 142/64 (90) Pulse Ox 94 O2 Delivery Room Air Room Air Capillary Refill : Constitutional: AAO x 3, well-developed, well-nourished HEENT: EOMI, hearing is well preserved; No xanthelasmas are seen Neck: carotid pulses are 2 + bilaterally, with good upstrokes Respiratory: No accessory muscle use; other (good, bilateral air entry) Cardiovascular: regular rate-rhythm, S1 and S2, systolic murmur (faint DALILA at card basee) Gastrointestinal: No tender; soft; No guarding, No rebound; audible bowel sounds Extremities: No clubbing, No cyanosis Neurologic/Psychiatric: oriented x 3, other (mild left upper and lower limb weakness) Skin: No rash on exposed areas, No ulcerations on exposed areas Data Review Labs Laboratory Tests 05/20/21 05:37 A/P-Cardiology Assessment/Admission Diagnosis Non-hemorragic CVA in late Apr 2021 resulting in L-sided weakness Hypertension Discussion and Recomendations * Echo * Carotid u/s * Tele for 48 hours to eval for any arrhythmia * Dr Norris managing CVA * Monitor labs SPENSER WOODS MD FACP FAC CCDS May 21, 2021 10:22
--- NOTE | 2021-05-21 11:30 | Physical Therapy Daily Note ---
PT Daily Note-Current Subjective Pt in recliner upon arrival and agrees to tx. Mental Status Patient Orientation: Person, Situation Transfers SCALE: Activities may be completed with or without assistive devices. 6-Flyotjpcjq-fncvrrp completes the activity by him/herself with no assistance from a helper. 5-Set-up or Clean-up Assistance-helper sets up or cleans up; patient completes activity. [place] assists only prior to or following the activity. 4-Supervision or Touching Assistance-helper provides verbal cues and/or touching/steadying and/or contact guard assistance as patient completes activity. Assistance may be provided throughout the activity or intermittently. 3-Partial/Moderate Assistance-helper does LESS THAN HALF the effort. [place] lifts, holds or supports trunk or limbs, but provides less than half the effort. 2-Substantial/Maximal Assistance-helper does MORE THAN HALF the effort. [place] lifts or holds trunk or limbs and provides more than half the effort. 7-Xbrcmuhfh-uuothz does ALL the effort. Patient does none of the effort to complete the activity. Or, the assistance of 2 or more helpers is required for the patient to complete the activity. If activity was not attempted, code reason: 7-Patient Refused. 9-Not Applicable-not attempted and the patient did not perform the activity before the current illness, exacerbation or injury. 10-Not Attempted due to Environmental Limitations-(lack of equipment, weather restraints, etc.). 88-Not Attempted due to Medical Conditions or Safety Concerns. Sit to Stand (QC): 5 Gait Training Does the Patient Walk?: Yes Distance: 200' x2 Walk 10 feet (QC): 4 Walk 50 ft with 2 Turns(QC): 4 Walk 150 ft (QC): 4 Gait Persons Needed: 1 Gait Assistive Device: FWW Pt amb around IRU to therapy gym and back. Pt has tendency to push FWW far in front of her, pt instructed to hold FWW but didn't comprehend. When demonstrated pt understood. Exercises NuStep Minutes: 15 NuStep Workload: 4 Treatments Pt amb around IRU and to gym. Pt uses NuStep, then amb back to room. Pt returns to recliner and was left with all needs met, call light in hand. Assessment Current Status: Good Progress Pt limited d/t language barrier PT Short Term Goals Short Term Goals Time Frame: May 27, 2021 Roll Left & Right: 6 Sit to lyin Lying to sitting on side of be: 6 Sit to stand: 4 Chair/box-uj-qnrmg transfer: 4 (SBA) Walk 10 feet: 4 (SBA) Walk 50 feet with two turns: 4 (SBA) Walk 150 feet: 4 (SBA) PT Social Science Research Assistant Goals Shelter Goals PT Social Science Research Assistant Goals Time Frame: Jun 10, 2021 Roll Left & Right (QC): 6 Sit to Lying (QC): 6 Lying-Sitting on Side/Bed(QC): 6 Sit to Stand (QC): 5 Chair/Kvp-qo-Wediq Xfer(QC): 5 Toilet Transfer (QC): 5 Car Transfer (QC): 5 Does the Patient Walk: Yes Walk 10 feet (QC): 5 Walk 50ft with 2 Turns (QC): 5 Walk 150 ft (QC): 5 Walking 10ft on Uneven Surface: 5 1 Step (curb) (QC): 4 (SBA) 4 Steps (QC): 4 (SBA) 12 Steps (QC): 88 Picking up an Object (QC): 4 (SBA) Wheel 50 feet with 2 turns (QC: 9 Wheel 150 feet: 9 PT Plan Treatment/Plan Treatment Plan: Continue Plan of Care Treatment Plan: Bed Mobility, Education, Functional Activity Tee, Functional Strength, Group Therapy, Gait, Safety, Therapeutic Exercise, Transfers Treatment Duration: Jun 10, 2021 Frequency: At least 5 of 7 days/Wk (IRF) Estimated Hrs Per Day: 1.5 hours per day Patient and/or Family Agrees t: Yes Safety Risks/Education Patient Education: Gait Training Teaching Recipient: Patient Teaching Methods: Demonstration, Discussion Response to Teaching: Verbalize Understanding, Return Demonstration Time/GCodes Time In: 1100 Time Out: 1130 Total Billed Treatment Time: 30 Total Billed Treatment 1, Ex, GT ADRIANA KIM RESIDENT SERVICES MANAGER May 21, 2021 11:30
--- NOTE | 2021-05-21 12:11 | Occupational Ther Daily Note ---
OT Current Status-Daily Note Subjective Pt requesting shower. Reports mild pain/soreness in Left foot/toes. Reports already receiving pain medication ADL-Treatment Therapy Code Descriptions/Definitions Functional [place] Measure: 0=Not Assessed/NA 4=Minimal Assistance 1=Total Assistance 5=Supervision or Setup 2=Maximal Assistance 6=Modified [place] 3=Moderate Assistance 7=Complete IndependenceSCALE: Activities may be completed with or without assistive devices. 4-Bpkpzimayv-vcfksxx completes the activity by him/herself with no assistance from a helper. 5-Set-up or Clean-up Assistance-helper sets up or cleans up; patient completes activity. [place] assists only prior to or following the activity. 4-Supervision or Touching Assistance-helper provides verbal cues and/or touching/steadying and/or contact guard assistance as patient completes activity. Assistance may be provided throughout the activity or intermittently. 3-Partial/Moderate Assistance-helper does LESS THAN HALF the effort. [place] lifts, holds or supports trunk or limbs, but provides less than half the effort. 2-Substantial/Maximal Assistance-helper does MORE THAN HALF the effort. [place] lifts or holds trunk or limbs and provides more than half the effort. 7-Ointhzlnh-yjfwzu does ALL the effort. Patient does none of the effort to complete the activity. Or, the assistance of 2 or more helpers is required for the patient to complete the activity. If activity was not attempted, code reason: 7-Patient Refused. 9-Not Applicable-not attempted and the patient did not perform the activity before the current illness, exacerbation or injury. 10-Not Attempted due to Environmental Limitations-(lack of equipment, weather restraints, etc.). 88-Not Attempted due to Medical Conditions or Safety Concerns. Bathing Location: L Arm, R Arm, L Upper Leg, R Upper Leg, L Lower Leg (incl uding foot), R Lower Leg (including foot), Chest, Abdomen, Buttocks, Perineal Area Shower/Bathe Self (QC): 4 (SBA) Upper Body Dressing (QC): 5 Lower Body Dressing (QC): 4 On/Off Footwear: 4 Toileting Hygiene (QC): 4 Toilet Transfer (QC): 4 Pt sitting in chair at OT arrival, requesting to shower. She retrieved clothing with SBA, cues to drape clothing over walker and for correct positioning of walker at closet. Mild safety concerns noted with walker management. Poor object avoidance noted as pt bumping into 2 objects on Left side. possible vision deficit? Cues needed for safety. Shower performed, ~50% completed in sitting/standing. No lob when standing with intermittent single ue support on grab bar. Pt sat to wash lower body. Able to reach all body parts without assist. She sat on shower chair to don clothing, Sup/set up, no physical assist required. She stood at sink to comb hair, zero UE support, sup for safety. Improved activity tolerance noted this date. Other Treatment Pt wanting to show therapist pictures of family members on her phone. Pt appeared to have difficulty locating photo vahe on phone and required cues to locate and identify correct vahe. Mild incoordination noted when swiping to different pictures/pages. Education OT Patient Education: Correct positioning, Progress toward Goal/Update tx plan, Purpose of tx/functional activities, Rehab process, Safety issues, Transfer techniques Teaching Recipient: Patient Teaching Methods: Discussion Response to Teaching: Verbalize Understanding, Return Demonstration, Reinforcement Needed OT Short Term Goals Short Term Goals Eatin Oral hygiene: 6 Toileting hygiene: 6 Shower/bathe self: 6 Upper body dressin Lower body dressin Putting on/taking off footwear: 6 OT Shelter Goals Biofuels Manager Goals Eating (QC): 6 Oral Hygiene (QC): 6 Toileting Hygiene (QC): 6 Shower/Bathe Self (QC): 6 Upper Body Dressing (QC): 6 Lower Body Dressing (QC): 6 On/Off Footwear (QC): 6 1=Demonstrate adherence to instructed precautions during ADL tasks. 2=Patient will verbalize/demonstrate understanding of assistive devices/modifications for ADL. 3=Patient will improve strength/tolerance for activity to enable patient to perform ADL's. OT Education/Plan Problem List/Assessment Assessment: Decreased Safety Aware, Impaired Coordination, Impaired I ADL's Discharge Recommendations Plan/Recommendations: Continue POC Treatment Plan/Plan of Care Treatment,Training & Education: Yes Patient would benefit from OT for education, treatment and training to promote independence in ADL's, mobility, safety and/or upper extremity function for ADL's. Plan of Care: ADL Retraining, Functional Mobility, Group Exercise/Act as Ind, UE Funct Exercise/Act Treatment Duration: Jun 01, 2021 Frequency: At least 5 of 7 days/Wk (IRF) Estimated Hrs Per Day: 1.5 hours per day Agreement: Yes Rehab Potential: Good Time/GCodes Start Time: 09:45 Stop Time: 10:45 Total Time Billed (hr/min): 60 Billed Treatment Time 1, ADL x4 Erica Chun OT May 21, 2021 12:11
--- NOTE | 2021-05-21 13:49 | Occupational Ther Daily Note ---
OT Current Status-Daily Note Subjective Pt agreeable to treatment. ADL-Treatment Therapy Code Descriptions/Definitions Functional [place] Measure: 0=Not Assessed/NA 4=Minimal Assistance 1=Total Assistance 5=Supervision or Setup 2=Maximal Assistance 6=Modified [place] 3=Moderate Assistance 7=Complete IndependenceSCALE: Activities may be completed with or without assistive devices. 8-Flcpffngrz-jvxflxh completes the activity by him/herself with no assistance from a helper. 5-Set-up or Clean-up Assistance-helper sets up or cleans up; patient completes activity. [place] assists only prior to or following the activity. 4-Supervision or Touching Assistance-helper provides verbal cues and/or touching/steadying and/or contact guard assistance as patient completes activity. Assistance may be provided throughout the activity or intermittently. 3-Partial/Moderate Assistance-helper does LESS THAN HALF the effort. [place] lifts, holds or supports trunk or limbs, but provides less than half the effort. 2-Substantial/Maximal Assistance-helper does MORE THAN HALF the effort. [place] lifts or holds trunk or limbs and provides more than half the effort. 6-Vhxbikfxq-dysyih does ALL the effort. Patient does none of the effort to complete the activity. Or, the assistance of 2 or more helpers is required for the patient to complete the activity. If activity was not attempted, code reason: 7-Patient Refused. 9-Not Applicable-not attempted and the patient did not perform the activity before the current illness, exacerbation or injury. 10-Not Attempted due to Environmental Limitations-(lack of equipment, weather restraints, etc.). 88-Not Attempted due to Medical Conditions or Safety Concerns. Toileting Hygiene (QC): 4 Toilet Transfer (QC): 4 Pt ambulated to/from bathroom with SBA and use of walker. She continues to demonstrate poor safety/walker management and object avoidance. Cues to keep walker closer to body and to attend to L side. She stood at sink to brush teeth, no lob or unsteadiness noted. Other Treatment Letter cancellation vision screen performed to identify any Left sided neglect. Initially pt with random scan pattern. However, transitions to more organized scan technique towards end of assessment. Score of 23/23, however pt was observed to utilize compensatory scanning pattern with turning head. OT to continue assessing vision during functional tasks. Education OT Patient Education: Modified ADL techniques, Progress toward Goal/Update tx plan, Purpose of tx/functional activities, Rehab process, Safety issues Teaching Recipient: Patient Teaching Methods: Demonstration, Discussion Response to Teaching: Verbalize Understanding, Return Demonstration, Reinforcement Needed OT Short Term Goals Short Term Goals Eatin Oral hygiene: 6 Toileting hygiene: 6 Shower/bathe self: 6 Upper body dressin Lower body dressin Putting on/taking off footwear: 6 OT Research Librarian Goals Research Librarian Goals Eating (QC): 6 Oral Hygiene (QC): 6 Toileting Hygiene (QC): 6 Shower/Bathe Self (QC): 6 Upper Body Dressing (QC): 6 Lower Body Dressing (QC): 6 On/Off Footwear (QC): 6 1=Demonstrate adherence to instructed precautions during ADL tasks. 2=Patient will verbalize/demonstrate understanding of assistive devices/modifications for ADL. 3=Patient will improve strength/tolerance for activity to enable patient to perform ADL's. OT Education/Plan Problem List/Assessment Assessment: Decreased Safety Aware, Decreased UE Strength, Impaired Funct Balance, Impaired I ADL's, Impaired Self-Care Skills Discharge Recommendations Plan/Recommendations: Continue POC Treatment Plan/Plan of Care Treatment,Training & Education: Yes Patient would benefit from OT for education, treatment and training to promote independence in ADL's, mobility, safety and/or upper extremity function for ADL's. Plan of Care: ADL Retraining, Functional Mobility, Group Exercise/Act as Ind, UE Funct Exercise/Act Treatment Duration: Jun 01, 2021 Frequency: At least 5 of 7 days/Wk (IRF) Estimated Hrs Per Day: 1.5 hours per day Agreement: Yes Rehab Potential: Good Time/GCodes Start Time: 13:04 Stop Time: 13:34 Total Time Billed (hr/min): 30 Billed Treatment Time 1, ADL, 1, Erica Denny OT May 21, 2021 13:49
--- NOTE | 2021-05-21 14:50 | Diagnostic Imaging Report ---
PROCEDURE: US carotid duplex, bilateral. TECHNIQUE: Multiple real-time grayscale images were obtained over the carotid arteries in various projections, bilaterally. Additional spectral analysis and color Doppler duplex images were also obtained. INDICATION: CVA and left hemiparesis. FINDINGS: There is mild plaquing in both carotid bifurcations extending into the proximal internal carotid arteries bilaterally. However, the velocities are normal bilaterally. No velocity elevation or stenosis is seen. Both vertebral arteries show antegrade flow. IMPRESSION: Mild bilateral carotid plaque. There is no evidence of a hemodynamically significant stenosis. Parameters based on the consensus panel Leroy-Scale and Doppler ultrasound criteria published July 2003, Radiology, Volume 229. DOPPLER (peak systolic velocity M/S Right Left CCA .77 .94 ICA Proximal .65 .68 ICA Mid .68 .80 ICA Distal .86 .85 RATIO 1.1 .91 ECA .73 .85 VERT .56 .49 Dictated by: Dictated on workstation # [id number]
[2021-05-21 20:00] VITALS: BP 122/59
[2021-05-22 07:50] VITALS: BP 126/59
--- NOTE | 2021-05-22 08:54 | Physical Therapy Daily Note ---
PT Daily Note-Current Subjective Pt in recliner w/ DR in room upon arrival. Pt agrees to tx. Mental Status Patient Orientation: Person, Time, Situation Transfers SCALE: Activities may be completed with or without assistive devices. 9-Chnvwqtxfq-gmkfpfo completes the activity by him/herself with no assistance from a helper. 5-Set-up or Clean-up Assistance-helper sets up or cleans up; patient completes activity. [place] assists only prior to or following the activity. 4-Supervision or Touching Assistance-helper provides verbal cues and/or touching/steadying and/or contact guard assistance as patient completes activity. Assistance may be provided throughout the activity or intermittently. 3-Partial/Moderate Assistance-helper does LESS THAN HALF the effort. [place] lifts, holds or supports trunk or limbs, but provides less than half the effort. 2-Substantial/Maximal Assistance-helper does MORE THAN HALF the effort. [place] lifts or holds trunk or limbs and provides more than half the effort. 7-Guiunrpjf-fxynxz does ALL the effort. Patient does none of the effort to complete the activity. Or, the assistance of 2 or more helpers is required for the patient to complete the activity. If activity was not attempted, code reason: 7-Patient Refused. 9-Not Applicable-not attempted and the patient did not perform the activity before the current illness, exacerbation or injury. 10-Not Attempted due to Environmental Limitations-(lack of equipment, weather restraints, etc.). 88-Not Attempted due to Medical Conditions or Safety Concerns. Sit to Stand (QC): 5 Gait Training Does the Patient Walk?: Yes Distance: 300' x2, 200' x2 Walk 10 feet (QC): 4 Walk 50 ft with 2 Turns(QC): 4 Walk 150 ft (QC): 4 Gait Persons Needed: 1 Gait Assistive Device: FWW Pt amb 300' w/ FWW and CGA. Pt introduced to SPC, pt tolerated well, required many demonstrations and TC for placement and sequencing. Pt tends to amb w/ narrow HAIM and slow, shuffling gait. Exercises Seated Therapy Exercises: Ankle pumps, Long arc quads, Hip flexion Seated Reps: 10 Standing: Side steps, Unilateral stance (Pt performed 10 secs on R LE, unable to hold on L LE. ), Weight shifts Standing Reps: 2 Pt performed weight shifts 30 secs x2. Pt side stepping 20' left and right w/ FWW for support and CGA. Treatments Pt uses restroom, is able to doff/don pants SBA. Pt washes hands and brushes teeth SBA. Pt uses SPC to amb into hallway. Pt amb 50' x2 w/ SPC then takes seated RB. Pt holds static standing 30 secs followed by weight shift ex. Pt maliha es RB then holds tandem stance 20 secs x2 followed by SLS. Pt has seated RB, then completes side stepping. Pt then amb 400' w/ FWW around IRU. Pt performs ring toss activity w/ CGA and unsupported from UE, throwing 8 rings x2 w/ seated RB between sets. Pt then amb 150' w/ SPC, requiring CGA as well as VC and TC to keep wide HAIM as well as for sequencing. Pt returns to recliner and room and performs seated ex. Pt left in recliner w/ all needs met, call light in hand. Assessment Current Status: Good Progress Difficult to introduce new material to pt d/t language barrier. Overall pt progressing well. PT Short Term Goals Short Term Goals Time Frame: May 27, 2021 Roll Left & Right: 6 Sit to lyin Lying to sitting on side of be: 6 Sit to stand: 4 Chair/liq-io-eqdzw transfer: 4 (SBA) Walk 10 feet: 4 (SBA) Walk 50 feet with two turns: 4 (SBA) Walk 150 feet: 4 (SBA) PT Market Research Coordinator Goals Jail Goals PT Market Research Coordinator Goals Time Frame: Jun 10, 2021 Roll Left & Right (QC): 6 Sit to Lying (QC): 6 Lying-Sitting on Side/Bed(QC): 6 Sit to Stand (QC): 5 Chair/Hor-bo-Dzmtf Xfer(QC): 5 Toilet Transfer (QC): 5 Car Transfer (QC): 5 Does the Patient Walk: Yes Walk 10 feet (QC): 5 Walk 50ft with 2 Turns (QC): 5 Walk 150 ft (QC): 5 Walking 10ft on Uneven Surface: 5 1 Step (curb) (QC): 4 (SBA) 4 Steps (QC): 4 (SBA) 12 Steps (QC): 88 Picking up an Object (QC): 4 (SBA) Wheel 50 feet with 2 turns (QC: 9 Wheel 150 feet: 9 PT Plan Problem List Problem List: Activity Tolerance Treatment/Plan Treatment Plan: Continue Plan of Care Treatment Plan: Bed Mobility, Education, Functional Activity Tee, Functional Strength, Group Therapy, Gait, Safety, Therapeutic Exercise, Transfers Treatment Duration: Jun 10, 2021 Frequency: At least 5 of 7 days/Wk (IRF) Estimated Hrs Per Day: 1.5 hours per day Patient and/or Family Agrees t: Yes Safety Risks/Education Patient Education: Gait Training, W/C Management Teaching Recipient: Patient Teaching Methods: Demonstration, Discussion Response to Teaching: Verbalize Understanding, Return Demonstration, Reinforcement Needed Time/GCodes Time In: 800 Time Out: 900 Total Billed Treatment Time: 60 Total Billed Treatment 1, Gt x2, NM, Ex ADRIANA KIM ONCOLOGY CONSULTANT May 22, 2021 08:54
[2021-05-22] MEDS: lisINopril 10 MG (PRINIVIL) TABLET PO SCH (09:51)
[2021-05-22] MEDS: CLOPIDOGREL 75 MG (PLAVIX) TABLET PO SCH (09:51)
[2021-05-22] MEDS: ASPIRIN E.C. 81 MG (ECOTRIN) TAB PO SCH (09:51)
[2021-05-22] MEDS: polyethylene glycoL POWDER 17 GM (MIRALAX) PACK PO SCH ×2 (09:51→20:44)
[2021-05-22] MEDS: DOCUSATE SODIUM 100 MG (COLACE) CAP PO SCH ×2 (09:51→20:32)
[2021-05-22] MEDS: SENNA W/DOCUSATE (SENOKOT S) TABLET PO SCH ×2 (09:51→20:32)
--- NOTE | 2021-05-22 10:14 | PM&R Progress Note ---
KELLY CHANEL 05/22/21 1014: Subjective HPI/CC On Admission Date Seen by Provider: May 22, 2021 Time Seen by Provider: 07:55 stroke, left sided weakness Subjective/Events-last exam 05/22/2021: Hanh reports some mild non-exertional reproducible left sided chest pain overnight. No nausea, diaphoresis, leg pain, radiation to the arm or neck, no palpitations. This is likely musculoskeletal. Unlikely to be PE or ACS given the pain is reproduced with palpation and the patient is on both aspirin and plavix. Doing well otherwise, worked with PT and OT yesterday and is learning to use the walker properly. 05/21/2021: Patient doing really well Reports left-sided tingling Bowels moved yesterday Left shoulder pain alleviated with Tylenol Walks pretty well Objective Exam Vital Signs Vital Signs Date Time Temp Pulse Resp B/P (MAP) Pulse Ox O2 Delivery O2 Flow Rate FiO2 05/22/21 09:11 Room Air 05/22/21 07:50 36.2 66 16 126/59 (81) 96 Capillary Refill : General Appearance: No Apparent Distress, WD/WN, Obese HEENT: PERRL/EOMI, Normal ENT Inspection, Pharynx Normal Neck: Full Range of Motion, Normal Inspection, Non Tender, Supple, Carotid Bruit Respiratory: Chest Non Tender, Lungs Clear, Normal Breath Sounds, No Accessory Muscle Use, No Respiratory Distress Cardiovascular: Regular Rate, Rhythm, No Edema, No Gallop, No JVD, No Murmur, Normal Peripheral Pulses Gastrointestinal: Normal Bowel Sounds, No Organomegaly, No Pulsatile Mass, Non Tender, Soft Extremity: Normal Capillary Refill, Normal Inspection, Normal Range of Motion, Non Tender, No Calf Tenderness, No Pedal Edema Neurologic/Psychiatric: Alert, Oriented x3, Normal Mood/Affect, Abnormal Gait (off balance), Motor Weakness (left sided but generalized) Skin: Normal Color, Warm/Dry Lymphatic: No Adenopathy Results/Procedures Lab Patient resulted labs reviewed. FIM Transfers Therapy Code Descriptions/Definitions Functional [place] Measure: 0=Not Assessed/NA 4=Minimal Assistance 1=Total Assistance 5=Supervision or Setup 2=Maximal Assistance 6=Modified [place] 3=Moderate Assistance 7=Complete IndependenceSCALE: Activities may be completed with or without assistive devices. 8-Qjilodbosg-betxwjx completes the activity by him/herself with no assistance from a helper. 5-Set-up or Clean-up Assistance-helper sets up or cleans up; patient completes activity. [place] assists only prior to or following the activity. 4-Supervision or Touching Assistance-helper provides verbal cues and/or touching/steadying and/or contact guard assistance as patient completes activity. Assistance may be provided throughout the activity or intermittently. 3-Partial/Moderate Assistance-helper does LESS THAN HALF the effort. [place] lifts, holds or supports trunk or limbs, but provides less than half the effort. 2-Substantial/Maximal Assistance-helper does MORE THAN HALF the effort. [place] lifts or holds trunk or limbs and provides more than half the effort. 0-Pzyamagpa-rkgonl does ALL the effort. Patient does none of the effort to complete the activity. Or, the assistance of 2 or more helpers is required for the patient to complete the activity. If activity was not attempted, code reason: 7-Patient Refused. 9-Not Applicable-not attempted and the patient did not perform the activity before the current illness, exacerbation or injury. 10-Not Attempted due to Environmental Limitations-(lack of equipment, weather restraints, etc.). 88-Not Attempted due to Medical Conditions or Safety Concerns. Roll Left to Right (QC): 6 Sit to Lying (QC): 6 Sit to Stand (QC): 5 Chair/Vay-vy-Hlbtx Xfer(QC): 4 Car Transfer (QC): 4 Gait Training Does the Patient Walk?: Yes Distance: 400', 50' x4 Walk 10 feet (QC): 4 Walk 50 ft with 2 Turns(QC): 4 Walk 150 ft (QC): 4 Walking 10ft/uneven surface-QC: 4 Gait Persons Needed: 1 Gait Assistive Device: FWW Wheelchair Training Does the Pt Use a Wheelchair?: No Wheel 50 ft with 2 turns (QC): 9 Wheel 150 ft (QC): 9 Stair Training #of Steps: 4 1 Step (curb) (QC): 4 4 Steps (QC): 4 12 Steps (QC): 88 Balance Picking up an Object (QC): 4 ADL-Treatment Eating (QC): 5 Oral Hygiene (QC): 4 Bathing Location: L Arm, R Arm, L Upper Leg, R Upper Leg, L Lower Leg (including foot), R Lower Leg (including foot), Chest, Abdomen, Buttocks, Perineal Area Shower/Bathe Self (QC): 4 (SBA) Upper Body Dressing (QC): 5 Lower Body Dressing (QC): 4 On/Off Footwear (QC): 4 Toileting Hygiene (QC): 4 Toilet Transfer (QC): 4 Assessment/Plan Assessment and Plan Assess & Plan/Chief Complaint continue PT/OT monitor for development of new symptoms control of chronic headaches as needed (1) CVA (cerebral vascular accident) CHRISTIANA ROSADO DO 05/23/21 0541: Supervisory-Addendum Brief Verification & Attestation Participated in pt care: history, MDM, physical Personally performed: exam, history, MDM, supervision of care Care discussed with: Medical Student Procedures: n/a Results interpretation: Verified all documentation Verification and Attestation of Medical Student E/M Service A medical student performed and documented this service in my presence. I reviewed and verified all information documented by the medical student and made modifications to such information, when appropriate. I personally performed the physical exam and medical decision making. Christiana Rosado, May 23, 2021,05:41 KELLY CHANEL May 22, 2021 10:14 CHRISTIANA ROSADO DO May 23, 2021 05:41
--- NOTE | 2021-05-22 10:45 | ST Cognitive Linguistic Eval ---
Speech Evaluation-General Medical Diagnosis CVA Onset Date: May 11, 2021 Referral Reason for Referral: Evaluation/Treatment Medical History Pertinent Medical History: CVA, GERD, HTN Reviewed History: Yes Social History Current Living Status: Alone Speech PLF-Current Status Subjective Pt's primary language is [place]. She states she speaks a little big of [place]. Pt pleasant and cooperative for speech therapy evaluation. Translation vahe used during evaluation for comprehension. Pt reports she lives alone. She was driving, taking care of bills, cooking and doing grocery shopping independently prior to admit to hospital. Pt indicates she is having trouble reading and difficulty seeing. Language Eval: Auditory Comprehends Simple Yes/No Ques: Functional Indent/Objects Multiple Lerma: Functional Follows 1-Step Commands: Functional Language Eval: Verbal Language Completes Spontaneous Greeting: Functional Produces Auto, Serial Info: Functional Imitates Simple Words/Phrases: Functional Word Finding: Functional Language Evaluation: Reading Pt reports difficulty reading. Pt appears with left neglect within clock drawing subsection of assessment. Objective Formal/Standardized Tests [facility] Mental Status Exam (UMS) subsections completed partially. Pt unable to understand [place] for paragraph comprehension. Results Pt oriented to person, place, time and situation. She was able to recall 2/5 objects. Divergent naming of animals with 15 named within 1 minute (in trinidadian). Left neglect apparent with clock drawing as numbers all were placed on the right side of the [place]. Pt unable to follow direction to place hands at correct time. It is unknown if difficulty was a result of language barrier or understanding following directions. Speech Patient Assess Expression of Ideas/Wants: Exhibits (3) Understanding Verbal Content: Usually Understands (3) Brief Interview-Mental Status: Yes Repetition of Three Words: Three (3) Temporal Orientation: Year: Correct (3) Temporal Orientation: Month: Accurate within 5 days(2) Temporal Orientation: Day: Correct (1) Recall : Wear to say "Sock": Yes, no cue required (2) Recall : Color: Yes, after cueing (1) Recall : Bed: Yes, no cue required (2) Memory/Recall Ability: That he or she is in a hsp/hsp unit Speech Short Term Goals Short Term Goals Short Term Goals 1. The pt will complete memory tasks related to her daily needs at 80% or greater with min cues. 2. The pt will complete problems solving tasks related to her dialy needs at 80% accy. 3. The pt will complete left neglect tasks with 80% accy. Speech-Plan Treatment Plan Speech Therapy Treatment Plan: Continue Plan of Care Pt would benefit from skilled speech therapy services for cognitive function focusing on daily problem solving, left neglect, and memory. Treatment Duration: May 21, 2021 Frequency: 4 times per week Estimated Hrs Per Day: Other Rehab Potential: Good Time Speech Therapy Time In: 09:30 Speech Therapy Time Out: 10:00 Billed Treatment Time 1, COGN TEST 30 MINS RITA HATFIELD May 22, 2021 10:45
--- NOTE | 2021-05-22 10:49 | PM&R Progress Note ---
Subjective HPI/CC On Admission Date Seen by Provider: May 22, 2021 Time Seen by Provider: 11:00 stroke, left sided weakness Subjective/Events-last exam 05/22/2021: Hanh reports some mild non-exertional reproducible left sided chest pain overnight. No nausea, diaphoresis, leg pain, radiation to the arm or neck, no palpitations. This is likely musculoskeletal. Unlikely to be PE or ACS given the pain is reproduced with palpation and the patient is on both aspirin and plavix. Doing well otherwise, worked with PT and OT yesterday and is learning to use the walker properly. 05/21/2021: Patient doing really well Reports left-sided tingling Bowels moved yesterday Left shoulder pain alleviated with Tylenol Walks pretty well Review of Systems General: Fatigue Neurological: Weakness Objective Exam Vital Signs Vital Signs Date Time Temp Pulse Resp B/P (MAP) Pulse Ox O2 Delivery O2 Flow Rate FiO2 05/22/21 21:00 Room Air 05/22/21 19:45 36.5 72 16 113/70 (84) 95 Capillary Refill : General Appearance: No Apparent Distress, WD/WN, Obese HEENT: PERRL/EOMI, Normal ENT Inspection, Pharynx Normal Neck: Full Range of Motion, Normal Inspection, Non Tender, Supple, Carotid Bruit Respiratory: Chest Non Tender, Lungs Clear, Normal Breath Sounds, No Accessory Muscle Use, No Respiratory Distress Cardiovascular: Regular Rate, Rhythm, No Edema, No Gallop, No JVD, No Murmur, Normal Peripheral Pulses Gastrointestinal: Normal Bowel Sounds, No Organomegaly, No Pulsatile Mass, Non Tender, Soft Extremity: Normal Capillary Refill, Normal Inspection, Normal Range of Motion, Non Tender, No Calf Tenderness, No Pedal Edema Neurologic/Psychiatric: Alert, Oriented x3, Normal Mood/Affect, Abnormal Gait (off balance), Motor Weakness (left sided but generalized) Skin: Normal Color, Warm/Dry Lymphatic: No Adenopathy Results/Procedures Lab Patient resulted labs reviewed. FIM Transfers Therapy Code Descriptions/Definitions Functional [place] Measure: 0=Not Assessed/NA 4=Minimal Assistance 1=Total Assistance 5=Supervision or Setup 2=Maximal Assistance 6=Modified [place] 3=Moderate Assistance 7=Complete IndependenceSCALE: Activities may be completed with or without assistive devices. 8-Xajvswwmle-bzmrsmu completes the activity by him/herself with no assistance from a helper. 5-Set-up or Clean-up Assistance-helper sets up or cleans up; patient completes activity. [place] assists only prior to or following the activity. 4-Supervision or Touching Assistance-helper provides verbal cues and/or touching/steadying and/or contact guard assistance as patient completes activity. Assistance may be provided throughout the activity or intermittently. 3-Partial/Moderate Assistance-helper does LESS THAN HALF the effort. [place] li fts, holds or supports trunk or limbs, but provides less than half the effort. 2-Substantial/Maximal Assistance-helper does MORE THAN HALF the effort. [place] lifts or holds trunk or limbs and provides more than half the effort. 4-Xxyaghwpo-fxorhw does ALL the effort. Patient does none of the effort to complete the activity. Or, the assistance of 2 or more helpers is required for the patient to complete the activity. If activity was not attempted, code reason: 7-Patient Refused. 9-Not Applicable-not attempted and the patient did not perform the activity before the current illness, exacerbation or injury. 10-Not Attempted due to Environmental Limitations-(lack of equipment, weather restraints, etc.). 88-Not Attempted due to Medical Conditions or Safety Concerns. Roll Left to Right (QC): 6 Sit to Lying (QC): 6 Sit to Stand (QC): 5 Chair/Dbv-lb-Hnkwq Xfer(QC): 4 Car Transfer (QC): 4 Gait Training Does the Patient Walk?: Yes Distance: 400', 50' x4 Walk 10 feet (QC): 4 Walk 50 ft with 2 Turns(QC): 4 Walk 150 ft (QC): 4 Walking 10ft/uneven surface-QC: 4 Gait Persons Needed: 1 Gait Assistive Device: FWW Wheelchair Training Does the Pt Use a Wheelchair?: No Wheel 50 ft with 2 turns (QC): 9 Wheel 150 ft (QC): 9 Stair Training #of Steps: 4 1 Step (curb) (QC): 4 4 Steps (QC): 4 12 Steps (QC): 88 Balance Picking up an Object (QC): 4 ADL-Treatment Eating (QC): 5 Oral Hygiene (QC): 4 Bathing Location: L Arm, R Arm, L Upper Leg, R Upper Leg, L Lower Leg (including foot), R Lower Leg (including foot), Chest, Abdomen, Buttocks, Perineal Area Shower/Bathe Self (QC): 4 (SBA) Upper Body Dressing (QC): 5 Lower Body Dressing (QC): 4 On/Off Footwear (QC): 4 Toileting Hygiene (QC): 4 Toilet Transfer (QC): 4 Assessment/Plan Assessment and Plan Assess & Plan/Chief Complaint Assessment: CVA with left sided weakness [place] speaking only HTN HLP Cluster NEIL hx Plan: IRF protocol Monitor BP Cardiology consultation 05/21/2021: Supportive care Intensive rehab Work on balance (1) CVA (cerebral vascular accident) KRYSTIAN ROSADO DO May 22, 2021 10:49
--- NOTE | 2021-05-22 11:11 | Occupational Ther Daily Note ---
OT Current Status-Daily Note Subjective Pt reports mild pain in L toes. Unable to give numerical value. ADL-Treatment Therapy Code Descriptions/Definitions Functional [place] Measure: 0=Not Assessed/NA 4=Minimal Assistance 1=Total Assistance 5=Supervision or Setup 2=Maximal Assistance 6=Modified [place] 3=Moderate Assistance 7=Complete IndependenceSCALE: Activities may be completed with or without assistive devices. 8-Iautecyskf-ysbhbep completes the activity by him/herself with no assistance from a helper. 5-Set-up or Clean-up Assistance-helper sets up or cleans up; patient completes activity. [place] assists only prior to or following the activity. 4-Supervision or Touching Assistance-helper provides verbal cues and/or touch ing/steadying and/or contact guard assistance as patient completes activity. Assistance may be provided throughout the activity or intermittently. 3-Partial/Moderate Assistance-helper does LESS THAN HALF the effort. [place] lifts, holds or supports trunk or limbs, but provides less than half the effort. 2-Substantial/Maximal Assistance-helper does MORE THAN HALF the effort. [place] lifts or holds trunk or limbs and provides more than half the effort. 5-Jsuzgdvxs-velkqo does ALL the effort. Patient does none of the effort to complete the activity. Or, the assistance of 2 or more helpers is required for the patient to complete the activity. If activity was not attempted, code reason: 7-Patient Refused. 9-Not Applicable-not attempted and the patient did not perform the activity before the current illness, exacerbation or injury. 10-Not Attempted due to Environmental Limitations-(lack of equipment, weather restraints, etc.). 88-Not Attempted due to Medical Conditions or Safety Concerns. On/Off Footwear: 4 Toileting Hygiene (QC): 4 (CGA) Toilet Transfer (QC): 4 (CGA) Other Treatment Pt already dressed this date. She retrieved all dirty clothes from around room with use of cane and CGA-Min A. Pt more unsteady this date when using cane vs walker. Min-mod a needed when retrieving item from low height with cues needed for proper body mechanics. She ambulated to/from laundry room and therapy gym with Min a; Cues for upright posture as she often would look down at feet. Short rest break required once reaching destination. She stood to load clothes into washer, close sba-cga while using machine for extra stability. Mod Visual cues needed for sequencing through steps to start washing machine. While in gym, she stood at white board for dynamic standing activity. Goal to increase standing balance, functional reach, endurance, and safety. Several verbal/visual cues needed to step closer to destination when reaching too far out of HAIM. Extra effort noted when reaching overhead with LUE due to weakness, but she was able to complete without physical assist. Intermittent Cues to widen HAIM for improved balance. Max cues needed when erasing letters in alphabetical order. Activity downgrade to numbers in numerical order. Pt with improved sequencing with numbers vs letters. Education OT Patient Education: Energy conservation, Modified ADL techniques, Progress toward Goal/Update tx plan, Purpose of tx/functional activities, Rehab process, Safety issues, Transfer techniques Teaching Recipient: Patient Teaching Methods: Demonstration, Discussion Response to Teaching: Return Demonstration, Reinforcement Needed OT Short Term Goals Short Term Goals Eatin Oral hygiene: 6 Toileting hygiene: 6 Shower/bathe self: 6 Upper body dressin Lower body dressin Putting on/taking off footwear: 6 OT Jail Goals Jail Goals Eating (QC): 6 Oral Hygiene (QC): 6 Toileting Hygiene (QC): 6 Shower/Bathe Self (QC): 6 Upper Body Dressing (QC): 6 Lower Body Dressing (QC): 6 On/Off Footwear (QC): 6 1=Demonstrate adherence to instructed precautions during ADL tasks. 2=Patient will verbalize/demonstrate understanding of assistive devices /modifications for ADL. 3=Patient will improve strength/tolerance for activity to enable patient to perform ADL's. OT Education/Plan Problem List/Assessment Assessment: Decreased Activ Tolerance, Decreased Safety Aware, Decreased UE Strength, Impaired Coordination, Impaired Funct Balance, Impaired I ADL's, Impaired Self-Care Skills Discharge Recommendations Plan/Recommendations: Continue POC Treatment Plan/Plan of Care Treatment,Training & Education: Yes Patient would benefit from OT for education, treatment and training to promote independence in ADL's, mobility, safety and/or upper extremity function for ADL's. Plan of Care: ADL Retraining, Functional Mobility, Group Exercise/Act as Ind, UE Funct Exercise/Act Treatment Duration: Jun 01, 2021 Frequency: At least 5 of 7 days/Wk (IRF) Estimated Hrs Per Day: 1.5 hours per day Agreement: Yes Rehab Potential: Good Time/GCodes Start Time: 10:00 Stop Time: 11:15 Total Time Billed (hr/min): 75 Billed Treatment Time 1, ADL (10 min), 1, FA x4 (65) Erica Chun OT May 22, 2021 11:11
--- NOTE | 2021-05-22 14:03 | Physical Therapy Daily Note ---
PT Daily Note-Current Subjective Pt in recliner just finishing lunch and agrees to tx. Post tx, pt asked if laundry was finished,GRINDER TENDER checked and put laundry in dryer. Mental Status Patient Orientation: Person, Time, Situation Transfers SCALE: Activities may be completed with or without assistive devices. 5-Jhcebpxosg-etppwrr completes the activity by him/herself with no assistance from a helper. 5-Set-up or Clean-up Assistance-helper sets up or cleans up; patient completes activity. [place] assists only prior to or following the activity. 4-Supervision or Touching Assistance-helper provides verbal cues and/or touching/steadying and/or contact guard assistance as patient completes activity. Assistance may be provided throughout the activity or intermittently. 3-Partial/Moderate Assistance-helper does LESS THAN HALF the effort. [place] lifts, holds or supports trunk or limbs, but provides less than half the effort. 2-Substantial/Maximal Assistance-helper does MORE THAN HALF the effort. [place] lifts or holds trunk or limbs and provides more than half the effort. 6-Sbuivneqm-hmmjrh does ALL the effort. Patient does none of the effort to complete the activity. Or, the assistance of 2 or more helpers is required for the patient to complete the activity. If activity was not attempted, code reason: 7-Patient Refused. 9-Not Applicable-not attempted and the patient did not perform the activity before the current illness, exacerbation or injury. 10-Not Attempted due to Environmental Limitations-(lack of equipment, weather restraints, etc.). 88-Not Attempted due to Medical Conditions or Safety Concerns. Sit to Stand (QC): 5 Gait Training Does the Patient Walk?: Yes Distance: 200', 150' Walk 10 feet (QC): 4 Walk 50 ft with 2 Turns(QC): 4 Walk 150 ft (QC): 4 Gait Persons Needed: 1 Gait Assistive Device: Cane Single Point pt amb 200' w/ SPC, pt slightly unstead, requires CGA. Pt tends to hold SPC farther way from body, but corrected w/ TC. Exercises Seated Therapy Exercises: Ankle pumps, Sit to stand, Long arc quads, Hip flexion, Hip abd/add Seated Reps: 10 Treatments Pt amb 200', and takes seated RB. During RB, pt completes seated ex. Pt amb back to room and returns to recliner. Pt left with all needs met, call light in hand. Assessment Current Status: Good Progress Pt limited d/t language barrier overall progressing well, improves balance, gait, and endurance PT Short Term Goals Short Term Goals Time Frame: May 27, 2021 Roll Left & Right: 6 Sit to lyin Lying to sitting on side of be: 6 Sit to stand: 4 Chair/eni-ob-nwxnw transfer: 4 (SBA) Walk 10 feet: 4 (SBA) Walk 50 feet with two turns: 4 (SBA) Walk 150 feet: 4 (SBA) PT Structural Steel Engineer Goals Custodial Goals PT Structural Steel Engineer Goals Time Frame: Jun 10, 2021 Roll Left & Right (QC): 6 Sit to Lying (QC): 6 Lying-Sitting on Side/Bed(QC): 6 Sit to Stand (QC): 5 Chair/Nym-bq-Imvbk Xfer(QC): 5 Toilet Transfer (QC): 5 Car Transfer (QC): 5 Does the Patient Walk: Yes Walk 10 feet (QC): 5 Walk 50ft with 2 Turns (QC): 5 Walk 150 ft (QC): 5 Walking 10ft on Uneven Surface: 5 1 Step (curb) (QC): 4 (SBA) 4 Steps (QC): 4 (SBA) 12 Steps (QC): 88 Picking up an Object (QC): 4 (SBA) Wheel 50 feet with 2 turns (QC: 9 Wheel 150 feet: 9 PT Plan Treatment/Plan Treatment Plan: Continue Plan of Care Treatment Plan: Bed Mobility, Education, Functional Activity Tee, Functional Strength, Group Therapy, Gait, Safety, Therapeutic Exercise, Transfers Treatment Duration: Jun 10, 2021 Frequency: At least 5 of 7 days/Wk (IRF) Estimated Hrs Per Day: 1.5 hours per day Patient and/or Family Agrees t: Yes Time/GCodes Time In: 1330 Time Out: 1345 Total Billed Treatment Time: 15 Total Billed Treatment 1EBONY SYDNEY GRINDER TENDER May 22, 2021 14:03
[2021-05-22 19:45] VITALS: BP 113/70
[2021-05-22] MEDS: ARTIFICAL TEARS 0.4 ML UNIT DOSE (REFRESH PLUS) OU PRN (20:32)
--- NOTE | 2021-05-23 07:44 | PM&R Progress Note ---
Subjective HPI/CC On Admission Date Seen by Provider: May 23, 2021 Time Seen by Provider: 12:00 stroke, left sided weakness Subjective/Events-last exam 05/23/2021: Patient doing really well Working with therapy Bowels are moving Eating and drinking well Balance issues are improving 05/22/2021: Hanh reports some mild non-exertional reproducible left sided chest pain overnight. No nausea, diaphoresis, leg pain, radiation to the arm or neck, no palpitations. This is likely musculoskeletal. Unlikely to be PE or ACS given the pain is reproduced with palpation and the patient is on both aspirin and plavix. Doing well otherwise, worked with PT and OT yesterday and is learning to use the walker properly. 05/21/2021: Patient doing really well Reports left-sided tingling Bowels moved yesterday Left shoulder pain alleviated with Tylenol Walks pretty well Review of Systems General: Fatigue, Malaise Neurological: Weakness, Incoordination Objective Exam Vital Signs Vital Signs Date Time Temp Pulse Resp B/P (MAP) Pulse Ox O2 Delivery O2 Flow Rate FiO2 05/24/21 01:00 71 05/23/21 21:00 Room Air 05/23/21 20:00 36.9 20 137/64 (88) 97 Capillary Refill : General Appearance: No Apparent Distress, WD/WN, Obese HEENT: PERRL/EOMI, Normal ENT Inspection, Pharynx Normal Neck: Full Range of Motion, Normal Inspection, Non Tender, Supple, Carotid Bruit Respiratory: Chest Non Tender, Lungs Clear, Normal Breath Sounds, No Accessory Muscle Use, No Respiratory Distress Cardiovascular: Regular Rate, Rhythm, No Edema, No Gallop, No JVD, No Murmur, Normal Peripheral Pulses Gastrointestinal: Normal Bowel Sounds, No Organomegaly, No Pulsatile Mass, Non Tender, Soft Extremity: Normal Capillary Refill, Normal Inspection, Normal Range of Motion, Non Tender, No Calf Tenderness, No Pedal Edema Neurologic/Psychiatric: Alert, Oriented x3, Normal Mood/Affect, Abnormal Gait (off balance), Motor Weakness (left sided but generalized) Skin: Normal Color, Warm/Dry Lymphatic: No Adenopathy Results/Procedures Lab Patient resulted labs reviewed. FIM Transfers Therapy Code Descriptions/Definitions Functional [place] Measure: 0=Not Assessed/NA 4=Minimal Assistance 1=Total Assistance 5=Supervision or Setup 2=Maximal Assistance 6=Modified [place] 3=Moderate Assistance 7=Complete IndependenceSCALE: Activities may be completed with or without assistive devices. 3-Bwmxcabghg-bcukaaa completes the activity by him/herself with no assistance from a helper. 5-Set-up or Clean-up Assistance-helper sets up or cleans up; patient completes activity. [place] assists only prior to or following the activity. 4-Supervision or Touching Assistance-helper provides verbal cues and/or touching/steadying and/or contact guard assistance as patient completes activity. Assistance may be provided throughout the activity or intermittently. 3-Partial/Moderate Assistance-helper does LESS THAN HALF the effort. [place] lifts, holds or supports trunk or limbs, but provides less than half the effort. 2-Substantial/Maximal Assistance-helper does MORE THAN HALF the effort. [place] lifts or holds trunk or limbs and provides more than half the effort. 2-Njcoktgdv-zvtdza does ALL the effort. Patient does none of the effort to complete the activity. Or, the assistance of 2 or more helpers is required for the patient to complete the activity. If activity was not attempted, code reason: 7-Patient Refused. 9-Not Applicable-not attempted and the patient did not perform the activity before the current illness, exacerbation or injury. 10-Not Attempted due to Environmental Limitations-(lack of equipment, weather restraints, etc.). 88-Not Attempted due to Medical Conditions or Safety Concerns. Roll Left to Right (QC): 6 Sit to Lying (QC): 6 Sit to Stand (QC): 5 Chair/Zwr-bn-Xvbxa Xfer(QC): 4 Car Transfer (QC): 4 Gait Training Does the Patient Walk?: Yes Distance: 300' x2, 200' x2 Walk 10 feet (QC): 4 Walk 50 ft with 2 Turns(QC): 4 Walk 150 ft (QC): 4 Walking 10ft/uneven surface-QC: 4 Gait Persons Needed: 1 Gait Assistive Device: Cane Single Point Wheelchair Training Does the Pt Use a Wheelchair?: No Wheel 50 ft with 2 turns (QC): 9 Wheel 150 ft (QC): 9 Stair Training #of Steps: 4 1 Step (curb) (QC): 4 4 Steps (QC): 4 12 Steps (QC): 88 Balance Picking up an Object (QC): 4 ADL-Treatment Eating (QC): 5 Oral Hygiene (QC): 4 Bathing Location: L Arm, R Arm, L Upper Leg, R Upper Leg, L Lower Leg (including foot), R Lower Leg (including foot), Chest, Abdomen, Buttocks, Perineal Area Shower/Bathe Self (QC): 4 (SBA) Upper Body Dressing (QC): 5 Lower Body Dressing (QC): 4 On/Off Footwear (QC): 4 Toileting Hygiene (QC): 4 (CGA) Toilet Transfer (QC): 4 (CGA) Assessment/Plan Assessment and Plan Assess & Plan/Chief Complaint Assessment: CVA with left sided weakness Somali speaking only HTN HLP Cluster NEIL hx Plan: IRF protocol Monitor BP Cardiology consultation 05/21/2021: Supportive care Intensive rehab Work on balance 05/22/2021: Monitor closely Balance focus therapy 05/23/21: Supportive care Aggressive therapy (1) CVA (cerebral vascular accident) KRYSTIAN ROSADO DO May 23, 2021 07:44
[2021-05-23] MEDS: ASPIRIN E.C. 81 MG (ECOTRIN) TAB PO SCH (07:56)
[2021-05-23] MEDS: CLOPIDOGREL 75 MG (PLAVIX) TABLET PO SCH (07:56)
[2021-05-23] MEDS: DOCUSATE SODIUM 100 MG (COLACE) CAP PO SCH ×2 (07:56→21:21)
[2021-05-23] MEDS: SENNA W/DOCUSATE (SENOKOT S) TABLET PO SCH ×2 (07:56→21:21)
[2021-05-23] MEDS: lisINopril 10 MG (PRINIVIL) TABLET PO SCH (07:56)
[2021-05-23] MEDS: ACETAMINOPHEN 500 MG TAB (TYLENOL) PO PRN (07:57)
[2021-05-23] MEDS: polyethylene glycoL POWDER 17 GM (MIRALAX) PACK PO SCH ×2 (07:58→21:21)
[2021-05-23 08:00] VITALS: BP 118/72
--- NOTE | 2021-05-23 10:00 | Occupational Ther Daily Note ---
OT Current Status-Daily Note Subjective No pain reported. Mental Status/Objective Patient Orientation: Person, Place ADL-Treatment Therapy Code Descriptions/Definitions Functional [place] Measure: 0=Not Assessed/NA 4=Minimal Assistance 1=Total Assistance 5=Supervision or Setup 2=Maximal Assistance 6=Modified [place] 3=Moderate Assistance 7=Complete IndependenceSCALE: Activities may be completed with or without assistive devices. 4-Ejbtghxyen-qpdbyeu completes the activity by him/herself with no assistance from a helper. 5-Set-up or Clean-up Assistance-helper sets up or cleans up; patient completes activity. [place] assists only prior to or following the activity. 4-Supervision or Touching Assistance-helper provides verbal cues and/or touching/steadying and/or contact guard assistance as patient completes activity. Assistance may be provided throughout the activity or intermittently. 3-Partial/Moderate Assistance-helper does LESS THAN HALF the effort. [place] lifts, holds or supports trunk or limbs, but provides less than half the effort. 2-Substantial/Maximal Assistance-helper does MORE THAN HALF the effort. [place] lifts or holds trunk or limbs and provides more than half the effort. 5-Szdahjnvc-zhqlbx does ALL the effort. Patient does none of the effort to complete the activity. Or, the assistance of 2 or more helpers is required for the patient to complete the activity. If activity was not attempted, code reason: 7-Patient Refused. 9-Not Applicable-not attempted and the patient did not perform the activity before the current illness, exacerbation or injury. 10-Not Attempted due to Environmental Limitations-(lack of equipment, weather restraints, etc.). 88-Not Attempted due to Medical Conditions or Safety Concerns. Eating (QC): 6 Oral Hygiene (QC): 4 (SBA standing at sink to brush teeth.) Shower/Bathe Self (QC): 4 (SBA in shower. Pt. able to bathe all parts. No LOB noted.) Upper Body Dressing (QC): 4 Lower Body Dressing (QC): 4 On/Off Footwear: 4 Toileting Hygiene (QC): 4 Toilet Transfer (QC): 4 (CGA for toilet transfer.) Other Treatment Pt. seen for partial treatment with PT due to need of skilled assist x [address] anding balance while working on UE mobility. PT focused on balance with use of and without walker, dynamically and statically while OT facilitated bilateral coordination with ball toss back forth, and coordination ball toss side/side between hands. Pt. demonstrates slight lag in left hand and decreased coordination, but full movement present in fingers, wrist, elbow. Decreased f lexion in shoulder. Able to range to approximately 120 degrees actively. OT/PT alternated UE/LE exercises x 15 reps each. Pt. tolerated 3 lb. dumbbell x 15 reps x 2 exercises. Practiced stairs and visual scanning side to side. Pt. indicates some bluriness and "floaters." Pt. is able to understand Spanish and speak some with cueing and increased time. Ambulated back to room with CGA and walker. Took shower with OT present with SBA. Pt. up in chair at end of session. All needs met. Education OT Patient Education: Correct positioning, Exercise program, Modified ADL techniques, Progress toward Goal/Update tx plan, Purpose of tx/functional activities, Reviewed precautions, Rehab process, Transfer techniques Teaching Recipient: Patient Teaching Methods: Demonstration, Discussion OT Short Term Goals Short Term Goals Eatin Oral hygiene: 6 Toileting hygiene: 6 Shower/bathe self: 6 Upper body dressin Lower body dressin Putting on/taking off footwear: 6 OT Group Home Goals Practical Nursing Faculty Goals Eating (QC): 6 Oral Hygiene (QC): 6 Toileting Hygiene (QC): 6 Shower/Bathe Self (QC): 6 Upper Body Dressing (QC): 6 Lower Body Dressing (QC): 6 On/Off Footwear (QC): 6 1=Demonstrate adherence to instructed precautions during ADL tasks. 2=Patient will verbalize/demonstrate understanding of assistive devices/modifications for ADL. 3=Patient will improve strength/tolerance for activity to enable patient to perform ADL's. OT Education/Plan Problem List/Assessment Assessment: Decreased Activ Tolerance, Impaired I ADL's, Impaired Self-Care Skills, Restricted Funct UE ROM, Visual-Perceptual Deficit Discharge Recommendations Plan/Recommendations: Continue POC Therapy Discharge Recommendati: Home & Family Treatment Plan/Plan of Care Treatment,Training & Education: Yes Patient would benefit from OT for education, treatment and training to promote independence in ADL's, mobility, safety and/or upper extremity function for ADL's. Plan of Care: ADL Retraining, Functional Mobility, Group Exercise/Act as Ind, UE Funct Exercise/Act Treatment Duration: Jun 01, 2021 Frequency: At least 5 of 7 days/Wk (IRF) Estimated Hrs Per Day: 1.5 hours per day Agreement: Yes Rehab Potential: Good Time/GCodes Start Time: 08:15 Stop Time: 09:45 Total Time Billed (hr/min): 90 Billed Treatment Time 0393-6376 1, FA x 30minutes, Ex x 20minutes- Co-treatment with PT ADL x 40minutes SHANNON FARNSWORTH OT May 23, 2021 10:00
--- NOTE | 2021-05-23 10:12 | Physical Therapy Daily Note ---
PT Daily Note-Current Subjective Pt sitting in recliner upon arrival. Pt agrees to PT. Pain Location Body Site: Head Pain Description: Ache Mental Status Patient Orientation: Person, Place, Time, Situation Sometimes communication is more difficult since Romanian speaking but pt understands and can speak Japanese pretty well. Transfers SCALE: Activities may be completed with or without assistive devices. 7-Oqajfrdjnx-rxkbgxl completes the activity by him/herself with no assistance from a helper. 5-Set-up or Clean-up Assistance-helper sets up or cleans up; patient completes activity. [place] assists only prior to or following the activity. 4-Supervision or Touching Assistance-helper provides verbal cues and/or touching/steadying and/or contact guard assistance as patient completes activity. Assistance may be provided throughout the activity or intermittently. 3-Partial/Moderate Assistance-helper does LESS THAN HALF the effort. [place] lifts, holds or supports trunk or limbs, but provides less than half the effort. 2-Substantial/Maximal Assistance-helper does MORE THAN HALF the effort. [place] lifts or holds trunk or limbs and provides more than half the effort. 3-Homdrddky-jjspch does ALL the effort. Patient does none of the effort to complete the activity. Or, the assistance of 2 or more helpers is required for the patient to complete the activity. If activity was not attempted, code reason: 7-Patient Refused. 9-Not Applicable-not attempted and the patient did not perform the activity before the current illness, exacerbation or injury. 10-Not Attempted due to Environmental Limitations-(lack of equipment, weather restraints, etc.). 88-Not Attempted due to Medical Conditions or Safety Concerns. Sit to Stand (QC): 5 Weight Bearing Full Weight Bearing Full Weight Bearing Gait Training Does the Patient Walk?: Yes Distance: 150' x2 Walk 10 feet (QC): 5 Walk 50 ft with 2 Turns(QC): 4 Walk 150 ft (QC): 4 Gait Persons Needed: 1 Gait Assistive Device: Cane Single Point Wheelchair Training Does the Pt Use a Wheelchair?: No Stair Training Stair Training: Handrails/: 2 handrails #of Steps: 4 1 Step (curb) (QC): 5 4 Steps (QC): 5 Exercises Seated Therapy Exercises: Ankle pumps, Long arc quads, Hip flexion Seated Reps: 15 Treatments Pt. seen for partial treatment with PT due to need of skilled assist x 2 for standing balance while working on UE mobility. PT focused on balance with use of and without walker, dynamically and statically while OT facilitated bilateral coordination with ball toss back forth, and coordination ball toss side/side between hands. Pt. demonstrates slight lag in left hand and decreased coordination, but full movement present in fingers, wrist, elbow. Decreased flexion in shoulder. OT/PT alternated UE/LE exercises x 15 reps each. Pt. tolerated 2# ankle weights well. Practiced stairs and visual scanning side to side. Pt. indicates some blurriness and "floaters." Pt. is able to understand Japanese and speak some with cueing and increased time. Ambulated back to room with CGA and walker. Assessment Current Status: Good Progress Pt fatigues occasionally so will take short RB as needed. PT Short Term Goals Short Term Goals Time Frame: May 27, 2021 Roll Left & Right: 6 Sit to lyin Lying to sitting on side of be: 6 Sit to stand: 4 Chair/xnm-we-ilssw transfer: 4 (SBA) Walk 10 feet: 4 (SBA) Walk 50 feet with two turns: 4 (SBA) Walk 150 feet: 4 (SBA) PT Mcfp Goals Heater Installer Goals PT Heater Installer Goals Time Frame: Jun 10, 2021 Roll Left & Right (QC): 6 Sit to Lying (QC): 6 Lying-Sitting on Side/Bed(QC): 6 Sit to Stand (QC): 5 Chair/Var-gw-Vmcrf Xfer(QC): 5 Toilet Transfer (QC): 5 Car Transfer (QC): 5 Does the Patient Walk: Yes Walk 10 feet (QC): 5 Walk 50ft with 2 Turns (QC): 5 Walk 150 ft (QC): 5 Walking 10ft on Uneven Surface: 5 1 Step (curb) (QC): 4 (SBA) 4 Steps (QC): 4 (SBA) 12 Steps (QC): 88 Picking up an Object (QC): 4 (SBA) Wheel 50 feet with 2 turns (QC: 9 Wheel 150 feet: 9 PT Plan Problem List Problem List: Activity Tolerance Treatment/Plan Treatment Plan: Continue Plan of Care Treatment Plan: Bed Mobility, Education, Functional Activity Tee, Functional Strength, Group Therapy, Gait, Safety, Therapeutic Exercise, Transfers Treatment Duration: Jun 10, 2021 Frequency: At least 5 of 7 days/Wk (IRF) Estimated Hrs Per Day: 1.5 hours per day Patient and/or Family Agrees t: Yes Safety Risks/Education Patient Education: Correct Positioning Teaching Recipient: Patient Teaching Methods: Discussion Response to Teaching: Verbalize Understanding Time/GCodes Time In: 735 Time Out: 905 Total Billed Treatment Time: 90 Total Billed Treatment 1, GT x2 (30m), EX x2 (30m) & FA x2 (30m) Co-treat w/OT for 50m ([id number]) NITA LOPES ENGINEERING MATHEMATICIAN May 23, 2021 10:12
--- NOTE | 2021-05-23 13:42 | Progress Note - Cardiology ---
Cardiology SOAP Progress Note Subjective: Gen malaise present No n/v/d No cp or palp or syncope or shortness of breath Objective: I&O/Vital Signs 05/23/21 05/23/21 08:00 09:06 Temp 36.4 Pulse 72 Resp 16 B/P (MAP) 118/72 (87) Pulse Ox 95 O2 Delivery Room Air Room Air Constitutional: AAO x 3, well-developed, well-nourished Respiratory: No accessory muscle use; other (good, bilateral air entry) Cardiovascular: regular rate-rhythm, S1 and S2, systolic murmur (faint DALILA at card basee) Gastrointestional: No tender; soft; No guarding, No rebound; audible bowel sounds Extremities: No clubbing, No cyanosis Neurologic/Psychiatric: oriented x 3, other (mild left upper and lower limb weakness) Skin: No rash on exposed areas, No ulcerations on exposed areas A/P: Assessment: Non-hemorragic CVA in late Apr 2021 resulting in L-sided weakness - carotid u/s at [place] on 05/21/21: mild bilateral carotid plaque Hypertension, controlled Plan: * Echo * Tele for 48 hours to eval for any arrhythmia * Dr Norris managing CVA * Monitor labs from time to time SPENSER WOODS MD FACP [facility] May 23, 2021 13:42
[2021-05-23 20:00] VITALS: BP 137/64
[2021-05-24 07:33] VITALS: BP 124/64
[2021-05-24] MEDS: ASPIRIN E.C. 81 MG (ECOTRIN) TAB PO SCH (07:49)
[2021-05-24] MEDS: lisINopril 10 MG (PRINIVIL) TABLET PO SCH (07:49)
[2021-05-24] MEDS: DOCUSATE SODIUM 100 MG (COLACE) CAP PO SCH ×2 (07:49→21:11)
[2021-05-24] MEDS: SENNA W/DOCUSATE (SENOKOT S) TABLET PO SCH ×2 (07:49→21:11)
[2021-05-24] MEDS: CLOPIDOGREL 75 MG (PLAVIX) TABLET PO SCH (07:49)
[2021-05-24] MEDS: ACETAMINOPHEN 500 MG TAB (TYLENOL) PO PRN (07:50)
--- NOTE | 2021-05-24 08:22 | PM&R Progress Note ---
Subjective HPI/CC On Admission Date Seen by Provider: May 24, 2021 Time Seen by Provider: 13:15 stroke, left sided weakness Subjective/Events-last exam 05/24/2021: Patient doing really well Having a lot of reflux Ordered Pepcid and Protonix Check meds and labs 05/23/2021: Patient doing really well Working with therapy Bowels are moving Eating and drinking well Balance issues are improving 05/22/2021: Hanh reports some mild non-exertional reproducible left sided chest pain overnight. No nausea, diaphoresis, leg pain, radiation to the arm or neck, no palpitations. This is likely musculoskeletal. Unlikely to be PE or ACS given the pain is reproduced with palpation and the patient is on both aspirin and plavix. Doing well otherwise, worked with PT and OT yesterday and is learning to use the walker properly. 05/21/2021: Patient doing really well Reports left-sided tingling Bowels moved yesterday Left shoulder pain alleviated with Tylenol Walks pretty well Review of Systems Neurological: Weakness, Incoordination Objective Exam Vital Signs Vital Signs Date Time Temp Pulse Resp B/P (MAP) Pulse Ox O2 Delivery O2 Flow Rate FiO2 05/25/21 01:00 62 05/24/21 21:00 Room Air 05/24/21 20:00 36.6 18 146/68 (94) 99 Capillary Refill : General Appearance: No Apparent Distress, WD/WN, Obese HEENT: PERRL/EOMI, Normal ENT Inspection, Pharynx Normal Neck: Full Range of Motion, Normal Inspection, Non Tender, Supple, Carotid Bruit Respiratory: Chest Non Tender, Lungs Clear, Normal Breath Sounds, No Accessory Muscle Use, No Respiratory Distress Cardiovascular: Regular Rate, Rhythm, No Edema, No Gallop, No JVD, No Murmur, Normal Peripheral Pulses Gastrointestinal: Normal Bowel Sounds, No Organomegaly, No Pulsatile Mass, Non Tender, Soft Extremity: Normal Capillary Refill, Normal Inspection, Normal Range of Motion, Non Tender, No Calf Tenderness, No Pedal Edema Neurologic/Psychiatric: Alert, Oriented x3, Normal Mood/Affect, Abnormal Gait (off balance), Motor Weakness (left sided but generalized) Skin: Normal Color, Warm/Dry Lymphatic: No Adenopathy Results/Procedures Lab Laboratory Tests 05/25/21 05:43 Patient resulted labs reviewed. FIM Transfers Therapy Code Descriptions/Definitions Functional [place] Measure: 0=Not Assessed/NA 4=Minimal Assistance 1=Total Assistance 5=Supervision or Setup 2=Maximal Assistance 6=Modified [place] 3=Moderate Assistance 7=Complete IndependenceSCALE: Activities may be completed with or without assistive devices. 7-Urskosrnux-hfdfdum completes the activity by him/herself with no assistance from a helper. 5-Set-up or Clean-up Assistance-helper sets up or cleans up; patient completes activity. [place] assists only prior to or following the activity. 4-Supervision or Touching Assistance-helper provides verbal cues and/or touching/steadying and/or contact guard assistance as patient completes activity. Assistance may be provided throughout the activity or intermittently. 3-Partial/Moderate Assistance-helper does LESS THAN HALF the effort. [place] lifts, holds or supports trunk or limbs, but provides less than half the effort. 2-Substantial/Maximal Assistance-helper does MORE THAN HALF the effort. [place] lifts or holds trunk or limbs and provides more than half the effort. 1-Hrvyzzvkt-ppxsrq does ALL the effort. Patient does none of the effort to complete the activity. Or, the assistance of 2 or more helpers is required for the patient to complete the activity. If activity was not attempted, code reason: 7-Patient Refused. 9-Not Applicable-not attempted and the patient did not perform the activity before the current illness, exacerbation or injury. 10-Not Attempted due to Environmental Limitations-(lack of equipment, weather restraints, etc.). 88-Not Attempted due to Medical Conditions or Safety Concerns. Roll Left to Right (QC): 6 Sit to Lying (QC): 6 Sit to Stand (QC): 5 Chair/Fay-zx-Flzfb Xfer(QC): 4 Car Transfer (QC): 4 Gait Training Does the Patient Walk?: Yes Distance: 150' x2 Walk 10 feet (QC): 5 Walk 50 ft with 2 Turns(QC): 4 Walk 150 ft (QC): 4 Walking 10ft/uneven surface-QC: 4 Gait Persons Needed: 1 Gait Assistive Device: Cane Single Point Wheelchair Training Does the Pt Use a Wheelchair?: No Wheel 50 ft with 2 turns (QC): 9 Wheel 150 ft (QC): 9 Stair Training Stair Training: Handrails/: 2 handrails #of Steps: 4 1 Step (curb) (QC): 5 4 Steps (QC): 5 12 Steps (QC): 88 Balance Picking up an Object (QC): 4 ADL-Treatment Eating (QC): 6 Oral Hygiene (QC): 4 (SBA standing at sink to brush teeth.) Bathing Location: L Arm, R Arm, L Upper Leg, R Upper Leg, L Lower Leg (including foot), R Lower Leg (including foot), Chest, Abdomen, Buttocks, Perineal Area Shower/Bathe Self (QC): 4 (SBA in shower. Pt. able to bathe all parts. No LOB noted.) Upper Body Dressing (QC): 4 Lower Body Dressing (QC): 4 On/Off Footwear (QC): 4 Toileting Hygiene (QC): 4 Toilet Transfer (QC): 4 (CGA for toilet transfer.) Assessment/Plan Assessment and Plan Assess & Plan/Chief Complaint Assessment: CVA with left sided weakness Ghanaian speaking only HTN HLP Cluster NEIL hx GERD Plan: IRF protocol Monitor BP Cardiology consultation 05/21/2021: Supportive care Intensive rehab Work on balance 05/22/2021: Monitor closely Balance focus therapy 05/23/21: Supportive care Aggressive therapy 05/24/2021: GERD treatment Intensive therapy (1) CVA (cerebral vascular accident) KRYSTIAN ROSADO DO May 24, 2021 08:22
[2021-05-24] MEDS: polyethylene glycoL POWDER 17 GM (MIRALAX) PACK PO SCH ×2 (09:30→21:11)
[2021-05-24] MEDS ORDERED: FAMOTIDINE 20 MG (PEPCID) TABLET PO ONE (14:00)
[2021-05-24] MEDS: CALCIUM CARBONATE 500 MG (TUMS) TAB.CHEW PO PRN ×2 (14:05→17:18)
[2021-05-24] MEDS: PANTOPRAZOLE 40 MG (PROTONIX) TAB PO SCH (14:21)
--- NOTE | 2021-05-24 15:18 | Progress Note - Cardiology ---
Cardiology SOAP Progress Note Subjective: Gen malaise present No cp or palp or syncope or shortness of breath Objective: I&O/Vital Signs 05/24/21 05/24/21 05/24/21 05/24/21 07:00 07:33 09:00 13:00 Temp 37.0 Pulse 61 68 71 Resp 18 B/P (MAP) 124/64 (84) Pulse Ox 97 O2 Delivery Room Air Room Air Constitutional: AAO x 3, well-developed, well-nourished Respiratory: No accessory muscle use; other (good, bilateral air entry) Cardiovascular: regular rate-rhythm, S1 and S2, systolic murmur (faint DALILA at card basee) Gastrointestional: No tender; soft; No guarding, No rebound; audible bowel sounds Extremities: No clubbing, No cyanosis Neurologic/Psychiatric: oriented x 3, other (mild left upper and lower limb weakness) Skin: No rash on exposed areas, No ulcerations on exposed areas A/P: Assessment: Non-hemorragic CVA in late Apr 2021 resulting in L-sided weakness - carotid u/s at [place], [place] on 05/21/21: mild bilateral carotid plaque Hypertension, controlled Plan: * Echo * Tele for 2-3 days to eval for any arrhythmia * Dr Norris managing CVA * Monitor labs from time to time SPENSER WOODS MD FACP FAC CCDS May 24, 2021 15:18
[2021-05-24 20:00] VITALS: BP 146/68
[2021-05-24] MEDS: FAMOTIDINE 20 MG (PEPCID) TABLET PO SCH (21:11)
[2021-05-24] MEDS: ARTIFICAL TEARS 0.4 ML UNIT DOSE (REFRESH PLUS) OU PRN (21:12)
[2021-05-25 05:52] LABS: BASOPHILS # (AUTO) 0.1 10^3/uL (0.0-0.1); BASOPHILS % (AUTO) 1 % (0-10); EOSINOPHILS # (AUTO) 0.1 10^3/uL (0.0-0.3); EOSINOPHILS % (AUTO) 2 % (0-10); HEMATOCRIT 40 % (35-52); HEMOGLOBIN 12.4 g/dL (11.5-16.0); LYMPHOCYTES # (AUTO) 2.2 10^3/uL (1.0-4.0); LYMPHOCYTES % (AUTO) 31 % (12-44); MEAN CORPUSCULAR HEMOGLOBIN 29 pg (25-34); MEAN CORPUSCULAR HGB CONC 31 g/dL (32-36); MEAN CORPUSCULAR VOLUME 93 fL (80-99); MEAN PLATELET VOLUME 9.5 fL (9.0-12.2); MONOCYTES # (AUTO) 0.6 10^3/uL (0.0-1.0); MONOCYTES % (AUTO) 9 % (0-12); NEUTROPHILS % (AUTO) 57 % (42-75); PLATELET COUNT 278 10^3/uL (130-400); WHITE BLOOD COUNT 7.1 10^3/uL (4.3-11.0)
[2021-05-25 06:05] LABS: ALBUMIN 3.9 GM/DL (3.2-4.5); POTASSIUM 4.1 MMOL/L (3.6-5.0)
[2021-05-25 06:06] LABS: CALCIUM 9.7 MG/DL (8.5-10.1)
[2021-05-25 06:08] LABS: TOTAL PROTEIN 7.5 GM/DL (6.4-8.2)
[2021-05-25 06:09] LABS: BILIRUBIN,TOTAL 0.5 MG/DL (0.1-1.0)
[2021-05-25 06:11] LABS: CREATININE SERUM 0.75 MG/DL (0.60-1.30)
--- NOTE | 2021-05-25 07:13 | PM&R Progress Note ---
Subjective HPI/CC On Admission Date Seen by Provider: May 25, 2021 Time Seen by Provider: 10:30 stroke, left sided weakness Subjective/Events-last exam 05/25/2021: Patient doing pretty well Bowels moved yesterday Telemetry shows normal sinus rhythm Pepcid 20 mg twice daily along with Protonix 40 mg daily has been helpful Carafate will be added She reports she has a hiatal hernia 05/24/2021: Patient doing really well Having a lot of reflux Ordered Pepcid and Protonix Check meds and labs 05/23/2021: Patient doing really well Working with therapy Bowels are moving Eating and drinking well Balance issues are improving 05/22/2021: Hanh reports some mild non-exertional reproducible left sided chest pain overnight. No nausea, diaphoresis, leg pain, radiation to the arm or neck, no palpitations. This is likely musculoskeletal. Unlikely to be PE or ACS given the pain is reproduced with palpation and the patient is on both aspirin and plavix. Doing well otherwise, worked with PT and OT yesterday and is learning to use the walker properly. 05/21/2021: Patient doing really well Reports left-sided tingling Bowels moved yesterday Left shoulder pain alleviated with Tylenol Walks pretty well Review of Systems Gastrointestinal: Other (GERD) Neurological: Weakness, Incoordination Objective Exam Vital Signs Vital Signs Date Time Temp Pulse Resp B/P (MAP) Pulse Ox O2 Delivery O2 Flow Rate FiO2 05/25/21 13:00 82 05/25/21 08:37 Room Air 05/25/21 07:26 36.4 14 150/74 (99) 98 Capillary Refill : General Appearance: No Apparent Distress, WD/WN, Obese HEENT: PERRL/EOMI, Normal ENT Inspection, Pharynx Normal Neck: Full Range of Motion, Normal Inspection, Non Tender, Supple, Carotid Bruit Respiratory: Chest Non Tender, Lungs Clear, Normal Breath Sounds, No Accessory Muscle Use, No Respiratory Distress Cardiovascular: Regular Rate, Rhythm, No Edema, No Gallop, No JVD, No Murmur, Normal Peripheral Pulses Gastrointestinal: Normal Bowel Sounds, No Organomegaly, No Pulsatile Mass, Non Tender, Soft Extremity: Normal Capillary Refill, Normal Inspection, Normal Range of Motion, Non Tender, No Calf Tenderness, No Pedal Edema Neurologic/Psychiatric: Alert, Oriented x3, Normal Mood/Affect, Abnormal Gait (off balance), Motor Weakness (left sided but generalized) Skin: Normal Color, Warm/Dry Lymphatic: No Adenopathy Results/Procedures Lab Laboratory Tests 05/25/21 05:43 Patient resulted labs reviewed. FIM Transfers Therapy Code Descriptions/Definitions Functional [place] Measure: 0=Not Assessed/NA 4=Minimal Assistance 1=Total Assistance 5=Supervision or Setup 2=Maximal Assistance 6=Modified [place] 3=Moderate Assistance 7=Complete IndependenceSCALE: Activities may be completed with or without assistive devices. 7-Qjjvxynuch-zvezjmw completes the activity by him/herself with no assistance from a helper. 5-Set-up or Clean-up Assistance-helper sets up or cleans up; patient completes activity. [place] assists only prior to or following the activity. 4-Supervision or Touching Assistance-helper provides verbal cues and/or touching/steadying and/or contact guard assistance as patient completes activity. Assistance may be provided throughout the activity or intermittently. 3-Partial/Moderate Assistance-helper does LESS THAN HALF the effort. [place] lifts, holds or supports trunk or limbs, but provides less than half the effort. 2-Substantial/Maximal Assistance-helper does MORE THAN HALF the effort. [place] lifts or holds trunk or limbs and provides more than half the effort. 9-Vbugarleo-wiqiom does ALL the effort. Patient does none of the effort to c omplete the activity. Or, the assistance of 2 or more helpers is required for the patient to complete the activity. If activity was not attempted, code reason: 7-Patient Refused. 9-Not Applicable-not attempted and the patient did not perform the activity before the current illness, exacerbation or injury. 10-Not Attempted due to Environmental Limitations-(lack of equipment, weather restraints, etc.). 88-Not Attempted due to Medical Conditions or Safety Concerns. Roll Left to Right (QC): 6 Sit to Lying (QC): 6 Sit to Stand (QC): 5 Chair/Rgm-ub-Tcsfj Xfer(QC): 4 Car Transfer (QC): 4 Gait Training Does the Patient Walk?: Yes Distance: 150' x2 Walk 10 feet (QC): 5 Walk 50 ft with 2 Turns(QC): 4 Walk 150 ft (QC): 4 Walking 10ft/uneven surface-QC: 4 Gait Persons Needed: 1 Gait Assistive Device: Cane Single Point Wheelchair Training Does the Pt Use a Wheelchair?: No Wheel 50 ft with 2 turns (QC): 9 Wheel 150 ft (QC): 9 Stair Training Stair Training: Handrails/: 2 handrails #of Steps: 4 1 Step (curb) (QC): 5 4 Steps (QC): 5 12 Steps (QC): 88 Balance Picking up an Object (QC): 4 ADL-Treatment Eating (QC): 6 Oral Hygiene (QC): 4 (SBA standing at sink to brush teeth.) Bathing Location: L Arm, R Arm, L Upper Leg, R Upper Leg, L Lower Leg (including foot), R Lower Leg (including foot), Chest, Abdomen, Buttocks, Perineal Area Shower/Bathe Self (QC): 4 (SBA in shower. Pt. able to bathe all parts. No LOB noted.) Upper Body Dressing (QC): 4 Lower Body Dressing (QC): 4 On/Off Footwear (QC): 4 Toileting Hygiene (QC): 4 Toilet Transfer (QC): 4 (CGA for toilet transfer.) Assessment/Plan Assessment and Plan Assess & Plan/Chief Complaint Assessment: CVA with left sided weakness Greek speaking only HTN HLP Cluster NEIL hx GERD Hiatal hernia Plan: IRF protocol Monitor BP Cardiology consultation 05/21/2021: Supportive care Intensive rehab Work on balance 05/22/2021: Monitor closely Balance focus therapy 05/23/21: Supportive care Aggressive therapy 05/24/2021: GERD treatment Intensive therapy 05/25/2021: GERD treatment Supportive care (1) CVA (cerebral vascular accident) KRYSTIAN ROSADO DO May 25, 2021 07:13
[2021-05-25 07:26] VITALS: BP 150/74
[2021-05-25] MEDS: SENNA W/DOCUSATE (SENOKOT S) TABLET PO SCH ×2 (07:36→21:13)
[2021-05-25] MEDS: FAMOTIDINE 20 MG (PEPCID) TABLET PO SCH ×2 (07:37→21:13)
[2021-05-25] MEDS: CLOPIDOGREL 75 MG (PLAVIX) TABLET PO SCH (07:37)
[2021-05-25] MEDS: PANTOPRAZOLE 40 MG (PROTONIX) TAB PO SCH (07:37)
[2021-05-25] MEDS: ASPIRIN E.C. 81 MG (ECOTRIN) TAB PO SCH (07:37)
[2021-05-25] MEDS: lisINopril 10 MG (PRINIVIL) TABLET PO SCH (07:37)
[2021-05-25] MEDS: DOCUSATE SODIUM 100 MG (COLACE) CAP PO SCH ×2 (07:56→21:13)
[2021-05-25] MEDS: polyethylene glycoL POWDER 17 GM (MIRALAX) PACK PO SCH ×2 (07:56→21:14)
--- NOTE | 2021-05-25 08:38 | Occupational Ther Daily Note ---
OT Current Status-Daily Note Mental Status/Objective Patient Orientation: Person, Place, Situation Attachments: Telemetry ADL-Treatment Pt retrieved clothing with close SBA and use of walker. Reminder on positioning of walker at closet and to drape clothing over walker vs carrying. Pt dropping 2 items on floor, but was able to retrieve with close sba/cga for safety. Demonstration/cues on proper body mechanics. Pt set up shower with min vc's and washed all body parts without assist this date. Good recall of energy conservation strategies provided in past sessions. She sat to don clothing; sup only. Pt is working towards being mod I with ADLs. Therapy Code Descriptions/Definitions Functional [place] Measure: 0=Not Assessed/NA 4=Minimal Assistance 1=Total Assistance 5=Supervision or Setup 2=Maximal Assistance 6=Modified [place] 3=Moderate Assistance 7=Complete IndependenceSCALE: Activities may be completed with or without assistive devices. 7-Cjphhspmlq-rhptkfx completes the activity by him/herself with no assistance from a helper. 5-Set-up or Clean-up Assistance-helper sets up or cleans up; patient completes activity. [place] assists only prior to or following the activity. 4-Supervision or Touching Assistance-helper provides verbal cues and/or touching/steadying and/or contact guard assistance as patient completes activity. Assistance may be provided throughout the activity or intermittently. 3-Partial/Moderate Assistance-helper does LESS THAN HALF the effort. [place] lifts, holds or supports trunk or limbs, but provides less than half the effort. 2-Substantial/Maximal Assistance-helper does MORE THAN HALF the effort. [place] lifts or holds trunk or limbs and provides more than half the effort. 3-Zqmixcpfp-dnxihq does ALL the effort. Patient does none of the effort to complete the activity. Or, the assistance of 2 or more helpers is required for the patient to complete the activity. If activity was not attempted, code reason: 7-Patient Refused. 9-Not Applicable-not attempted and the patient did not perform the activity before the current illness, exacerbation or injury. 10-Not Attempted due to Environmental Limitations-(lack of equipment, weather restraints, etc.). 88-Not Attempted due to Medical Conditions or Safety Concerns. Oral Hygiene (QC): 4 (supervision) Bathing Location: L Arm, R Arm, L Upper Leg, R Upper Leg, L Lower Leg (including foot), R Lower Leg (including foot), Chest, Abdomen, Buttocks, Perineal Area Shower/Bathe Self (QC): 5 Upper Body Dressing (QC): 4 (Sup/CGA with clothing retrieval) Lower Body Dressing (QC): 4 (sup/CGA with clothing retrieval) On/Off Footwear: 4 (with use of figure 4 position. Pt unable to fit into shoes secondary to swelling, R>L. ) Toileting Hygiene (QC): 4 Toilet Transfer (QC): 4 Other Treatment Co-tx with PT x 15 min to work on advanced standing balance needed for IADLs. PT focused on balance with zero UE support; dynamically and statically while OT facilitated bilateral coordination with ball toss/catch and hitting ball with pool noodle. Pt cued to step with each toss in effort to improve stepping strategy for balance. Pt. demonstrates slight lag in left upper and lower ext remity with decreased coordination. Visual and verbal cues for HAIM/COG when standing. See PT note regarding level of assist for balance. Pt left with Physical therapy in gym. Education OT Patient Education: Correct positioning, Energy conservation, Modified ADL techniques, Progress toward Goal/Update tx plan, Purpose of tx/functional activities, Rehab process, Safety issues Teaching Recipient: Patient Teaching Methods: Demonstration, Discussion Response to Teaching: Verbalize Understanding, Return Demonstration, Reinforcement Needed OT Short Term Goals Short Term Goals Eatin Oral hygiene: 6 Toileting hygiene: 6 Shower/bathe self: 6 Upper body dressin Lower body dressin Putting on/taking off footwear: 6 OT Clinical Trial Data Manager Goals [facility] Goals Eating (QC): 6 Oral Hygiene (QC): 6 Toileting Hygiene (QC): 6 Shower/Bathe Self (QC): 6 Upper Body Dressing (QC): 6 Lower Body Dressing (QC): 6 On/Off Footwear (QC): 6 1=Demonstrate adherence to instructed precautions during ADL tasks. 2=Patient will verbalize/demonstrate understanding of assistive devices/modifications for ADL. 3=Patient will improve strength/tolerance for activity to enable patient to perform ADL's. OT Education/Plan Problem List/Assessment Assessment: Decreased Activ Tolerance, Decreased Safety Aware, Decreased UE Strength, Impaired Coordination, Impaired Funct Balance, Impaired I ADL's, Impaired Self-Care Skills Discharge Recommendations Plan/Recommendations: Continue POC Equpiment Recommendations-D/C: Rails on Tub/Shower, Bath Chair Treatment Plan/Plan of Care Treatment,Training & Education: Yes Patient would benefit from OT for education, treatment and training to promote independence in ADL's, mobility, safety and/or upper extremity function for ADL's. Plan of Care: ADL Retraining, Functional Mobility, Group Exercise/Act as Ind, UE Funct Exercise/Act Treatment Duration: Jun 01, 2021 Frequency: At least 5 of 7 days/Wk (IRF) Estimated Hrs Per Day: 1.5 hours per day Agreement: Yes Rehab Potential: Good Time/GCodes Start Time: 07:45 Stop Time: 09:15 Total Time Billed (hr/min): 90 Billed Treatment Time 1, ADL x5 (75 min), FA (15 min) Erica Chun OT May 25, 2021 08:38
--- NOTE | 2021-05-25 10:03 | Physical Therapy Daily Note ---
PT Daily Note-Current Subjective Pt. in chair with OT and nursing present upon arrival, patient agrees to PT, no complaints initially but does c/o L foot pain during session. No objective pain rating given. Mental Status Patient Orientation: Person, Place Transfers SCALE: Activities may be completed with or without assistive devices. 4-Mnmrimoxcc-nrwtnnx completes the activity by him/herself with no assistance from a helper. 5-Set-up or Clean-up Assistance-helper sets up or cleans up; patient completes activity. [place] assists only prior to or following the activity. 4-Supervision or Touching Assistance-helper provides verbal cues and/or touching/steadying and/or contact guard assistance as patient completes activity. Assistance may be provided throughout the activity or intermittently. 3-Partial/Moderate Assistance-helper does LESS THAN HALF the effort. [place] lifts, holds or supports trunk or limbs, but provides less than half the effort. 2-Substantial/Maximal Assistance-helper does MORE THAN HALF the effort. [place] lifts or holds trunk or limbs and provides more than half the effort. 7-Dmgbdgupu-spfcwz does ALL the effort. Patient does none of the effort to complete the activity. Or, the assistance of 2 or more helpers is required for the patient to complete the activity. If activity was not attempted, code reason: 7-Patient Refused. 9-Not Applicable-not attempted and the patient did not perform the activity before the current illness, exacerbation or injury. 10-Not Attempted due to Environmental Limitations-(lack of equipment, weather restraints, etc.). 88-Not Attempted due to Medical Conditions or Safety Concerns. Sit to Stand (QC): 4 Weight Bearing Full Weight Bearing Full Weight Bearing Gait Training Does the Patient Walk?: Yes Distance: x 100 ft, x 200 ft, x 300 ft Walk 10 feet (QC): 4 Walk 150 ft (QC): 4 Gait Persons Needed: 1 Gait Assistive Device: Cane Single Point Exercises Seated Therapy Exercises: Long arc quads (3# wt) Seated Reps: 20 Standing: Hip Abduction, Heel/toe raises, Marching, Mini squats, Retro gait, Sit to Stand, Side steps Standing Reps: 10 Worked on standing balance on AirEx x 1', tandem stance on AirEx x 1' Treatments Co-tx with OT x 15' of initial treatment to work on advanced standing balance activities: therapist assisting with balance while OT bounces/catches ball back and forth with patient. PT for independent treatment x 75' working on gait, LE strengthening, and balance activities. Pt. completed arm bike x 10' Assessment Current Status: Good Progress Pt. remains CGA with ambulation using SPC but is progressing towards (I) a mbulation. She did very well balance and strengthening exercises. Pt. does fatigue with therapy requiring periodic seated rest and did have some c/o pain in the L foot during session, unable to rate pain. Pt. returned to bedside chair post session with nursing present for telemetry set up. PT Short Term Goals Short Term Goals Time Frame: May 27, 2021 Roll Left & Right: 6 Sit to lyin Lying to sitting on side of be: 6 Sit to stand: 4 Chair/ojb-ud-yaovz transfer: 4 (SBA) Walk 10 feet: 4 (SBA) Walk 50 feet with two turns: 4 (SBA) Walk 150 feet: 4 (SBA) PT [facility] Goals Motorcycle Maker Goals PT [facility] Goals Time Frame: Jun 10, 2021 Roll Left & Right (QC): 6 Sit to Lying (QC): 6 Lying-Sitting on Side/Bed(QC): 6 Sit to Stand (QC): 5 Chair/Rnl-of-Muymn Xfer(QC): 5 Toilet Transfer (QC): 5 Car Transfer (QC): 5 Does the Patient Walk: Yes Walk 10 feet (QC): 5 Walk 50ft with 2 Turns (QC): 5 Walk 150 ft (QC): 5 Walking 10ft on Uneven Surface: 5 1 Step (curb) (QC): 4 (SBA) 4 Steps (QC): 4 (SBA) 12 Steps (QC): 88 Picking up an Object (QC): 4 (SBA) Wheel 50 feet with 2 turns (QC: 9 Wheel 150 feet: 9 PT Plan Treatment/Plan Treatment Plan: Continue Plan of Care Treatment Plan: Bed Mobility, Education, Functional Activity Tee, Functional Strength, Group Therapy, Gait, Safety, Therapeutic Exercise, Transfers Treatment Duration: Jun 10, 2021 Frequency: At least 5 of 7 days/Wk (IRF) Estimated Hrs Per Day: 1.5 hours per day Patient and/or Family Agrees t: Yes Time/GCodes Time In: 900 Time Out: 1030 Total Billed Treatment Time: 90 Total Billed Treatment 1, GT 25', NM 30', Ex 35' [place] PT May 25, 2021 10:03
[2021-05-25] MEDS: SUCRALFATE 1 GM (CARAFATE) TAB PO SCH ×3 (11:25→21:13)
--- NOTE | 2021-05-25 15:05 | Progress Note - Cardiology ---
Cardiology SOAP Progress Note Subjective: Gen malaise and weakness No cp or palp or syncope or shortness of breath No n/v/d Objective: I&O/Vital Signs 05/25/21 05/25/21 05/25/21 05/25/21 07:00 07:26 08:37 13:00 Temp 36.4 Pulse 75 74 82 Resp 14 B/P (MAP) 150/74 (99) Pulse Ox 98 O2 Delivery Room Air Room Air Constitutional: AAO x 3, well-developed, well-nourished Respiratory: No accessory muscle use; other (good, bilateral air entry) Cardiovascular: regular rate-rhythm, S1 and S2, systolic murmur (faint DALILA at card basee) Gastrointestional: No tender; soft; No guarding, No rebound; audible bowel sounds Extremities: No clubbing, No cyanosis Neurologic/Psychiatric: oriented x 3, other (mild left upper and lower limb weakness) Skin: No rash on exposed areas, No ulcerations on exposed areas Results/Procedures: Labs Laboratory Tests 05/25/21 05:43: White Blood Count 7.1, Red Blood Count 4.27, Hemoglobin 12.4, Hematocrit 40, Mean Corpuscular Volume 93, Mean Corpuscular Hemoglobin 29, Mean Corpuscular He moglobin Concent 31L, Red Cell Distribution Width 13.0, Platelet Count 278, Mean Platelet Volume 9.5, Immature Granulocyte % (Auto) 0, Neutrophils (%) (Auto) 57, Lymphocytes (%) (Auto) 31, Monocytes (%) (Auto) 9, Eosinophils (%) (Auto) 2, Basophils (%) (Auto) 1, Neutrophils # (Auto) 4.0, Lymphocytes # (Auto) 2.2, Monocytes # (Auto) 0.6, Eosinophils # (Auto) 0.1, Basophils # (Auto) 0.1, I mmature Granulocyte # (Auto) 0.0, Sodium Level 140, Potassium Level 4.1, Chloride Level 107, Carbon Dioxide Level 26, Anion Gap 7, Blood Urea Nitrogen 10, Creatinine 0.75, Estimat Glomerular Filtration Rate 77, BUN/Creatinine Ratio 13, Glucose Level 91, Calcium Level 9.7, Corrected Calcium 9.8, Total Bilirubin 0.5, Aspartate Amino Transf (AST/SGOT) 18, Alanine Aminotransferase (ALT/SGPT) 23, Alkaline Phosphatase 78, Total Protein 7.5, Albumin 3.9 Laboratory Tests 05/25/21 05:43 A/P: Assessment: 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
[2021-05-25 20:00] VITALS: BP 137/65
--- NOTE | 2021-05-26 05:45 | PM&R Progress Note ---
Subjective HPI/CC On Admission Date Seen by Provider: May 26, 2021 Time Seen by Provider: 10:30 stroke, left sided weakness Subjective/Events-last exam 05/26/2021: Pt doing really well No major issues Bowels moved yesterday Checked meds and labs 05/25/2021: Patient doing pretty well Bowels moved yesterday Telemetry shows normal sinus rhythm Pepcid 20 mg twice daily along with Protonix 40 mg daily has been helpful Carafate will be added She reports she has a hiatal hernia 05/24/2021: Patient doing really well Having a lot of reflux Ordered Pepcid and Protonix Check meds and labs 05/23/2021: Patient doing really well Working with therapy Bowels are moving Eating and drinking well Balance issues are improving 05/22/2021: Hanh reports some mild non-exertional reproducible left sided chest pain overnight. No nausea, diaphoresis, leg pain, radiation to the arm or neck, no palpitations. This is likely musculoskeletal. Unlikely to be PE or ACS given the pain is reproduced with palpation and the patient is on both aspirin and plavix. Doing well otherwise, worked with PT and OT yesterday and is learning to use the walker properly. 05/21/2021: Patient doing really well Reports left-sided tingling Bowels moved yesterday Left shoulder pain alleviated with Tylenol Walks pretty well Review of Systems General: Fatigue, Malaise Neurological: Weakness Objective Exam Vital Signs Vital Signs Date Time Temp Pulse Resp B/P (MAP) Pulse Ox O2 Delivery O2 Flow Rate FiO2 05/27/21 01:15 77 05/26/21 20:58 97 Room Air 05/26/21 20:00 36.8 16 120/56 (77) Capillary Refill : General Appearance: No Apparent Distress, WD/WN, Obese HEENT: PERRL/EOMI, Normal ENT Inspection, Pharynx Normal Neck: Full Range of Motion, Normal Inspection, Non Tender, Supple, Carotid Bruit Respiratory: Chest Non Tender, Lungs Clear, Normal Breath Sounds, No Accessory Muscle Use, No Respiratory Distress Cardiovascular: Regular Rate, Rhythm, No Edema, No Gallop, No JVD, No Murmur, Normal Peripheral Pulses Gastrointestinal: Normal Bowel Sounds, No Organomegaly, No Pulsatile Mass, Non Tender, Soft Extremity: Normal Capillary Refill, Normal Inspection, Normal Range of Motion, Non Tender, No Calf Tenderness, No Pedal Edema Neurologic/Psychiatric: Alert, Oriented x3, Normal Mood/Affect, Abnormal Gait ( off balance), Motor Weakness (left sided but generalized) Skin: Normal Color, Warm/Dry Lymphatic: No Adenopathy Results/Procedures Lab Patient resulted labs reviewed. FIM Transfers Therapy Code Descriptions/Definitions Functional [place] Measure: 0=Not Assessed/NA 4=Minimal Assistance 1=Total Assistance 5=Supervision or Setup 2=Maximal Assistance 6=Modified [place] 3=Moderate Assistance 7=Complete IndependenceSCALE: Activities may be completed with or without assistive devices. 5-Jjdumzsvol-qwhprar completes the activity by him/herself with no assistance from a helper. 5-Set-up or Clean-up Assistance-helper sets up or cleans up; patient completes activity. [place] assists only prior to or following the activity. 4-Supervision or Touching Assistance-helper provides verbal cues and/or touching/steadying and/or contact guard assistance as patient completes activity. Assistance may be provided throughout the activity or intermittently. 3-Partial/Moderate Assistance-helper does LESS THAN HALF the effort. [place] lifts, holds or supports trunk or limbs, but provides less than half the effort. 2-Substantial/Maximal Assistance-helper does MORE THAN HALF the effort. [place] l ifts or holds trunk or limbs and provides more than half the effort. 9-Zlmniuzjh-fdzjvk does ALL the effort. Patient does none of the effort to complete the activity. Or, the assistance of 2 or more helpers is required for the patient to complete the activity. If activity was not attempted, code reason: 7-Patient Refused. 9-Not Applicable-not attempted and the patient did not perform the activity before the current illness, exacerbation or injury. 10-Not Attempted due to Environmental Limitations-(lack of equipment, weather restraints, etc.). 88-Not Attempted due to Medical Conditions or Safety Concerns. Roll Left to Right (QC): 6 Sit to Lying (QC): 6 Sit to Stand (QC): 4 Chair/Fkn-ao-Ogirt Xfer(QC): 4 Car Transfer (QC): 4 Gait Training Does the Patient Walk?: Yes Distance: x 100 ft, x 200 ft, x 300 ft Walk 10 feet (QC): 4 Walk 50 ft with 2 Turns(QC): 4 Walk 150 ft (QC): 4 Walking 10ft/uneven surface-QC: 4 Gait Persons Needed: 1 Gait Assistive Device: Cane Single Point Wheelchair Training Does the Pt Use a Wheelchair?: No Wheel 50 ft with 2 turns (QC): 9 Wheel 150 ft (QC): 9 Stair Training Stair Training: Handrails/: 2 handrails #of Steps: 4 1 Step (curb) (QC): 5 4 Steps (QC): 5 12 Steps (QC): 88 Balance Picking up an Object (QC): 4 ADL-Treatment Eating (QC): 6 Oral Hygiene (QC): 4 (supervision) Bathing Location: L Arm, R Arm, L Upper Leg, R Upper Leg, L Lower Leg (including foot), R Lower Leg (including foot), Chest, Abdomen, Buttocks, Perineal Area Shower/Bathe Self (QC): 5 Upper Body Dressing (QC): 4 (Sup/CGA with clothing retrieval) Lower Body Dressing (QC): 4 (sup/CGA with clothing retrieval) On/Off Footwear (QC): 4 (with use of figure 4 position. Pt unable to fit into shoes secondary to swelling, R>L. ) Toileting Hygiene (QC): 4 Toilet Transfer (QC): 4 Assessment/Plan Assessment and Plan Assess & Plan/Chief Complaint Assessment: CVA with left sided weakness Swedish speaking only HTN HLP Cluster NEIL hx GERD Hiatal hernia Plan: IRF protocol Monitor BP Cardiology consultation 05/21/2021: Supportive care Intensive rehab Work on balance 05/22/2021: Monitor closely Balance focus therapy 05/23/21: Supportive care Aggressive therapy 05/24/2021: GERD treatment Intensive therapy 05/25/2021: GERD treatment Supportive care 05/26/2021: Supportive care GERD treatment (1) CVA (cerebral vascular accident) KRYSTIAN ROSADO DO May 26, 2021 05:45
[2021-05-26] MEDS: SUCRALFATE 1 GM (CARAFATE) TAB PO SCH ×4 (06:37→20:57)
[2021-05-26 07:27] VITALS: BP 138/66
[2021-05-26] MEDS: PANTOPRAZOLE 40 MG (PROTONIX) TAB PO SCH (08:04)
[2021-05-26] MEDS: SENNA W/DOCUSATE (SENOKOT S) TABLET PO SCH ×2 (08:04→20:57)
[2021-05-26] MEDS: DOCUSATE SODIUM 100 MG (COLACE) CAP PO SCH ×2 (08:04→20:57)
[2021-05-26] MEDS: CLOPIDOGREL 75 MG (PLAVIX) TABLET PO SCH (08:04)
[2021-05-26] MEDS: lisINopril 10 MG (PRINIVIL) TABLET PO SCH (08:04)
[2021-05-26] MEDS: ASPIRIN E.C. 81 MG (ECOTRIN) TAB PO SCH (08:04)
[2021-05-26] MEDS: FAMOTIDINE 20 MG (PEPCID) TABLET PO SCH ×2 (08:04→20:57)
[2021-05-26] MEDS: polyethylene glycoL POWDER 17 GM (MIRALAX) PACK PO SCH ×2 (08:05→21:03)
--- NOTE | 2021-05-26 09:25 | Occupational Ther Daily Note ---
OT Current Status-Daily Note Subjective Pt denies any pain. Asks about update on d/c date. Discussed team meeting tomorrow. Appearance Pt left sitting in chair, all needs within reach. Mental Status/Objective Patient Orientation: Person, Place, Time, Situation ADL-Treatment Pt retrieved clothing with close SBA and use of walker. Good recall on draping clothing over walker and correct positioning of walker at closet. Pt continues to demonstrate poor object avoidance with walker and requires several cues for attention and safety. She was able to set up shower and wash all body parts without assist this date. She sat to don clothing, no assist or cues needed for safety. Pt is working towards being mod I with ADLs. Therapy Code Descriptions/Definitions Functional [place] Measure: 0=Not Assessed/NA 4=Minimal Assistance 1=Total Assistance 5=Supervision or Setup 2=Maximal Assistance 6=Modified [place] 3=Moderate Assistance 7=Complete IndependenceSCALE: Activities may be completed with or without assistive devices. 2-Ejgsubkdpc-ywedtpp completes the activity by him/herself with no assistance from a helper. 5-Set-up or Clean-up Assistance-helper sets up or cleans up; patient completes activity. [place] assists only prior to or following the activity. 4-Supervision or Touching Assistance-helper provides verbal cues and/or touching/steadying and/or contact guard assistance as patient completes activity. Assistance may be provided throughout the activity or intermittently. 3-Partial/Moderate Assistance-helper does LESS THAN HALF the effort. [place] lifts, holds or supports trunk or limbs, but provides less than half the effort. 2-Substantial/Maximal Assistance-helper does MORE THAN HALF the effort. [place] lifts or holds trunk or limbs and provides more than half the effort. 9-Krmszqlyk-mpvyxo does ALL the effort. Patient does none of the effort to complete the activity. Or, the assistance of 2 or more helpers is required for the patient to complete the activity. If activity was not attempted, code reason: 7-Patient Refused. 9-Not Applicable-not attempted and the patient did not perform the activity before the current illness, exacerbation or injury. 10-Not Attempted due to Environmental Limitations-(lack of equipment, weather restraints, etc.). 88-Not Attempted due to Medical Conditions or Safety Concerns. Eating (QC): 6 Oral Hygiene (QC): 6 Bathing Location: L Arm, R Arm, L Upper Leg, R Upper Leg, L Lower Leg (including foot), R Lower Leg (including foot), Chest, Abdomen, Buttocks, Perineal Area Shower/Bathe Self (QC): 6 Upper Body Dressing (QC): 6 Lower Body Dressing (QC): 5 On/Off Footwear: 5 Toileting Hygiene (QC): 6 Toilet Transfer (QC): 6 Other Treatment Pt participated in UE exercises with 2# dumbbell with goal to promote increased strength and endurance needed for functional activities. Decreased coordination noted with LUE, but improved from past sessions. Visual and tactile cues for correct technique. Improved tolerance to 15 reps this date. All planes, 15 x2. Education OT Patient Education: Correct positioning, Energy conservation, Exercise program, Modified ADL techniques, Progress toward Goal/Update tx plan, Purpose of tx/functional activities, Safety issues Teaching Recipient: Patient Teaching Methods: Demonstration, Discussion Response to Teaching: Verbalize Understanding, Return Demonstration, Reinforcement Needed OT Short Term Goals Short Term Goals Eatin Oral hygiene: 6 Toileting hygiene: 6 Shower/bathe self: 6 Upper body dressin Lower body dressin Putting on/taking off footwear: 6 OT Intermediate Goals Blow Mold Machine Operator Goals Eating (QC): 6 Oral Hygiene (QC): 6 Toileting Hygiene (QC): 6 Shower/Bathe Self (QC): 6 Upper Body Dressing (QC): 6 Lower Body Dressing (QC): 6 On/Off Footwear (QC): 6 1=Demonstrate adherence to instructed precautions during ADL tasks. 2=Patient will verbalize/demonstrate understanding of assistive devices/modifications for ADL. 3=Patient will improve strength/tolerance for activity to enable patient to perform ADL's. OT Education/Plan Problem List/Assessment Assessment: Decreased Activ Tolerance, Decreased Safety Aware, Decreased UE Strength, Impaired Coordination, Impaired Funct Balance, Impaired I ADL's Discharge Recommendations Plan/Recommendations: Continue POC Therapy Discharge Recommendati: Meals on Wheels, Homemaker Support, Home & Family Equpiment Recommendations-D/C: Rails on Tub/Shower, Bath Chair, Extended Shower Sprayer Treatment Plan/Plan of Care Treatment,Training & Education: Yes Patient would benefit from OT for education, treatment and training to promote independence in ADL's, mobility, safety and/or upper extremity function for ADL's. Plan of Care: ADL Retraining, Functional Mobility, Group Exercise/Act as Ind, UE Funct Exercise/Act Treatment Duration: Jun 01, 2021 Frequency: At least 5 of 7 days/Wk (IRF) Estimated Hrs Per Day: 1.5 hours per day Agreement: Yes Rehab Potential: Good Time/GCodes Start Time: 07:58 Stop Time: 09:28 Total Time Billed (hr/min): 90 Billed Treatment Time 1, ADL x4 (60 min), EX x2 (30 min) Erica Chun OT May 26, 2021 09:25
--- NOTE | 2021-05-26 10:28 | Physical Therapy Daily Note ---
PT Daily Note-Current Subjective Pt in recliner and agrees to tx. Pt states she is ready to go home. Mental Status Patient Orientation: Person, Place, Situation Transfers SCALE: Activities may be completed with or without assistive devices. 5-Ibrawqalub-pvqqrcn completes the activity by him/herself with no assistance from a helper. 5-Set-up or Clean-up Assistance-helper sets up or cleans up; patient completes activity. [place] assists only prior to or following the activity. 4-Supervision or Touching Assistance-helper provides verbal cues and/or touching/steadying and/or contact guard assistance as patient completes activity. Assistance may be provided throughout the activity or intermittently. 3-Partial/Moderate Assistance-helper does LESS THAN HALF the effort. [place] lif ts, holds or supports trunk or limbs, but provides less than half the effort. 2-Substantial/Maximal Assistance-helper does MORE THAN HALF the effort. [place] lifts or holds trunk or limbs and provides more than half the effort. 2-Nhqbiwqyn-kackpk does ALL the effort. Patient does none of the effort to complete the activity. Or, the assistance of 2 or more helpers is required for the patient to complete the activity. If activity was not attempted, code reason: 7-Patient Refused. 9-Not Applicable-not attempted and the patient did not perform the activity before the current illness, exacerbation or injury. 10-Not Attempted due to Environmental Limitations-(lack of equipment, weather restraints, etc.). 88-Not Attempted due to Medical Conditions or Safety Concerns. Sit to Stand (QC): 5 Weight Bearing Full Weight Bearing Full Weight Bearing Gait Training Does the Patient Walk?: Yes Distance: 200' x2 Walk 10 feet (QC): 4 Walk 50 ft with 2 Turns(QC): 4 Walk 150 ft (QC): 4 Gait Persons Needed: 1 Gait Assistive Device: None Pt began amb w/o an AD. Pt able to amb 200' CGA. Pt has slight unsteady gait, w/ slow and shuffling pattern. Exercises NuStep Minutes: 15 NuStep Workload: 5 Neuromuscular Pt stands on AirEx w/o UE support and CGA 30 secs x2. Pt then completes standing on AirEx bouncing & catching ball 30 bounces x3 sets. Pt completes activity CGA with no LOB. Pt performs rutledge bag toss activity, tossing 13 rutledge bags in basket 5' away, while pt stands on AirEx. Pt able to make all rutledge bags x2 sets. Treatments Pt request to use BR, able to doff/don and wash hands SBA. Pt amb round IRU, and to therapy gym. Pt completes NuStep, followed by balance activities. Pt amb back to room and returns to recliner, all needs met call light in hand. Assessment Current Status: Good Progress Pt improving in balance, endurance, and strength PT Short Term Goals Short Term Goals Time Frame: May 27, 2021 Roll Left & Right: 6 Sit to lyin Lying to sitting on side of be: 6 Sit to stand: 4 Chair/atg-vm-rajiw transfer: 4 (SBA) Walk 10 feet: 4 (SBA) Walk 50 feet with two turns: 4 (SBA) Walk 150 feet: 4 (SBA) PT Accounting Clerk Goals Jail Goals PT Jail Goals Time Frame: Jun 10, 2021 Roll Left & Right (QC): 6 Sit to Lying (QC): 6 Lying-Sitting on Side/Bed(QC): 6 Sit to Stand (QC): 5 Chair/Yit-qk-Lygfe Xfer(QC): 5 Toilet Transfer (QC): 5 Car Transfer (QC): 5 Does the Patient Walk: Yes Walk 10 feet (QC): 5 Walk 50ft with 2 Turns (QC): 5 Walk 150 ft (QC): 5 Walking 10ft on Uneven Surface: 5 1 Step (curb) (QC): 4 (SBA) 4 Steps (QC): 4 (SBA) 12 Steps (QC): 88 Picking up an Object (QC): 4 (SBA) Wheel 50 feet with 2 turns (QC: 9 Wheel 150 feet: 9 PT Plan Treatment/Plan Treatment Plan: Continue Plan of Care Treatment Plan: Bed Mobility, Education, Functional Activity Tee, Functional Strength, Group Therapy, Gait, Safety, Therapeutic Exercise, Transfers Treatment Duration: Jun 10, 2021 Frequency: At least 5 of 7 days/Wk (IRF) Estimated Hrs Per Day: 1.5 hours per day Patient and/or Family Agrees t: Yes Safety Risks/Education Teaching Recipient: Patient Teaching Methods: Demonstration, Discussion Response to Teaching: Verbalize Understanding, Return Demonstration Time/GCodes Time In: 930 Time Out: 1030 Total Billed Treatment Time: 60 Total Billed Treatment 1, Ex, GT, NM x2 KIM,ADRIANA ICE CREAM CHEF May 26, 2021 10:28
--- NOTE | 2021-05-26 13:33 | Physical Therapy Daily Note ---
PT Daily Note-Current Subjective Pt in recliner and agrees to tx. Pt has no c/o pain, but tingling in L UE. Mental Status Patient Orientation: Person, Place, Situation Transfers SCALE: Activities may be completed with or without assistive devices. 4-Atraebygts-rakhkoy completes the activity by him/herself with no assistance from a helper. 5-Set-up or Clean-up Assistance-helper sets up or cleans up; patient completes activity. [place] assists only prior to or following the activity. 4-Supervision or Touching Assistance-helper provides verbal cues and/or touching/steadying and/or contact guard assistance as patient completes activity. Assistance may be provided throughout the activity or intermittently. 3-Partial/Moderate Assistance-helper does LESS THAN HALF the effort. [place] lifts, holds or supports trunk or limbs, but provides less than half the effort. 2-Substantial/Maximal Assistance-helper does MORE THAN HALF the effort. [place] lifts or holds trunk or limbs and provides more than half the effort. 2-Misbgsrqc-ashbdm does ALL the effort. Patient does none of the effort to complete the activity. Or, the assistance of 2 or more helpers is required for the patient to complete the activity. If activity was not attempted, code reason: 7-Patient Refused. 9-Not Applicable-not attempted and the patient did not perform the activity before the current illness, exacerbation or injury. 10-Not Attempted due to Environmental Limitations-(lack of equipment, weather restraints, etc.). 88-Not Attempted due to Medical Conditions or Safety Concerns. Sit to Stand (QC): 5 Weight Bearing Full Weight Bearing Full Weight Bearing Gait Training Does the Patient Walk?: Yes Distance: 200' x2 Walk 10 feet (QC): 4 Walk 50 ft with 2 Turns(QC): 4 Walk 150 ft (QC): 4 Gait Persons Needed: 1 Gait Assistive Device: None Pt amb on IRU w/ no AD and CGA from RETAIL DIRECTOR. Pt has no LOB or gait deviations noted att. Stair Training Stair Training: Handrails/: 2 handrails #of Steps: 12 1 Step (curb) (QC): 4 4 Steps (QC): 4 12 Steps (QC): 4 Stairs: Pattern: Reciprocal Pt performed 12 steps, reciprocal ascending and step to descending requiring CGA. Exercises Seated Therapy Exercises: Kicking activity Seated kicking activity consisted on pt kicking ball back and forth to RETAIL DIRECTOR, having to stretch each way for ball. Activity done for 5 mins. Neuromuscular Pt performed standing activity w/ ring toss throwing w/ L UE only. Pt able to hold standing w/ no issues and SBA. Treatments Pt uses restroom followed by amb on IRU. Pt enters therapy gym and performs ring toss activity 8 rings x2 on L UE only. Pt takes seated RB, then completes stair training. Pt then performs seated kicking activity for 5 mins. Pt amb on IRU then returns to room. Pt goes to recliner and is left with all needs met, call light in hand. Assessment Current Status: Good Progress Pt overall increase in strength, endurance, and balance. PT Short Term Goals Short Term Goals Time Frame: May 27, 2021 Roll Left & Right: 6 Sit to lyin Lying to sitting on side of be: 6 Sit to stand: 4 Chair/bzm-gd-ufnoc transfer: 4 (SBA) Walk 10 feet: 4 (SBA) Walk 50 feet with two turns: 4 (SBA) Walk 150 feet: 4 (SBA) PT Half-Way Goals Curriculum Developer Goals PT Curriculum Developer Goals Time Frame: Jun 10, 2021 Roll Left & Right (QC): 6 Sit to Lying (QC): 6 Lying-Sitting on Side/Bed(QC): 6 Sit to Stand (QC): 5 Chair/Uew-km-Xpgww Xfer(QC): 5 Toilet Transfer (QC): 5 Car Transfer (QC): 5 Does the Patient Walk: Yes Walk 10 feet (QC): 5 Walk 50ft with 2 Turns (QC): 5 Walk 150 ft (QC): 5 Walking 10ft on Uneven Surface: 5 1 Step (curb) (QC): 4 (SBA) 4 Steps (QC): 4 (SBA) 12 Steps (QC): 88 Picking up an Object (QC): 4 (SBA) Wheel 50 feet with 2 turns (QC: 9 Wheel 150 feet: 9 PT Plan Treatment/Plan Treatment Plan: Continue Plan of Care Treatment Plan: Bed Mobility, Education, Functional Activity Tee, Functional Strength, Group Therapy, Gait, Safety, Therapeutic Exercise, Transfers Treatment Duration: Jun 10, 2021 Frequency: At least 5 of 7 days/Wk (IRF) Estimated Hrs Per Day: 1.5 hours per day Patient and/or Family Agrees t: Yes Time/GCodes Time In: 1300 Time Out: 1330 Total Billed Treatment Time: 30 Total Billed Treatment 1, GT, ADRIANA PARSONS RETAIL DIRECTOR May 26, 2021 13:33
[2021-05-26] MEDS ORDERED: PANT40TA52 PO (15:37)
[2021-05-26] MEDS ORDERED: LOSA1TAB20 PO (15:37)
[2021-05-26 20:00] VITALS: BP 120/56
--- NOTE | 2021-05-27 06:35 | PM&R Progress Note ---
Subjective HPI/CC On Admission Date Seen by Provider: May 27, 2021 Time Seen by Provider: 09:00 stroke, left sided weakness Subjective/Events-last exam 05/27/2021: Pt wants to go home on Tuesday Had a BM two days ago Feels pretty good otherwise No concerns 05/26/2021: Pt doing really well No major issues Bowels moved yesterday Checked meds and labs 05/25/2021: Patient doing pretty well Bowels moved yesterday Telemetry shows normal sinus rhythm Pepcid 20 mg twice daily along with Protonix 40 mg daily has been helpful Carafate will be added She reports she has a hiatal hernia 05/24/2021: Patient doing really well Having a lot of reflux Ordered Pepcid and Protonix Check meds and labs 05/23/2021: Patient doing really well Working with therapy Bowels are moving Eating and drinking well Balance issues are improving 05/22/2021: Hanh reports some mild non-exertional reproducible left sided chest pain overnight. No nausea, diaphoresis, leg pain, radiation to the arm or neck, no palpitations. This is likely musculoskeletal. Unlikely to be PE or ACS given the pain is reproduced with palpation and the patient is on both aspirin and plavix. Doing well otherwise, worked with PT and OT yesterday and is learning to use the walker properly. 05/21/2021: Patient doing really well Reports left-sided tingling Bowels moved yesterday Left shoulder pain alleviated with Tylenol Walks pretty well Review of Systems Neurological: Weakness, Incoordination Objective Exam Vital Signs Vital Signs Date Time Temp Pulse Resp B/P (MAP) Pulse Ox O2 Delivery O2 Flow Rate FiO2 05/28/21 01:00 70 05/27/21 20:44 95 Room Air 05/27/21 20:00 36.1 18 114/55 (74) Capillary Refill : General Appearance: No Apparent Distress, WD/WN, Obese HEENT: PERRL/EOMI, Normal ENT Inspection, Pharynx Normal Neck: Full Range of Motion, Normal Inspection, Non Tender, Supple, Carotid Bruit Respiratory: Chest Non Tender, Lungs Clear, Normal Breath Sounds, No Accessory Muscle Use, No Respiratory Distress Cardiovascular: Regular Rate, Rhythm, No Edema, No Gallop, No JVD, No Murmur, Normal Peripheral Pulses Gastrointestinal: Normal Bowel Sounds, No Organomegaly, No Pulsatile Mass, Non Tender, Soft Extremity: Normal Capillary Refill, Normal Inspection, Normal Range of Motion, Non Tender, No Calf Tenderness, No Pedal Edema Neurologic/Psychiatric: Alert, Oriented x3, Normal Mood/Affect, Abnormal Gait (off balance), Motor Weakness (left sided but generalized) Skin: Normal Color, Warm/Dry Lymphatic: No Adenopathy Results/Procedures Lab Patient resulted labs reviewed. FIM Transfers Therapy Code Descriptions/Definitions Functional [place] Measure: 0=Not Assessed/NA 4=Minimal Assistance 1=Total Assistance 5=Supervision or Setup 2=Maximal Assistance 6=Modified [place] 3=Moderate Assistance 7=Complete IndependenceSCALE: Activities may be completed with or without assistive devices. 5-Vmqkabfbkt-cxbkngk completes the activity by him/herself with no assistance from a helper. 5-Set-up or Clean-up Assistance-helper sets up or cleans up; patient completes activity. [place] assists only prior to or following the activity. 4-Supervision or Touching Assistance-helper provides verbal cues and/or touching/steadying and/or contact guard assistance as patient completes activity. Assistance may be provided throughout the activity or intermittently. 3-Partial/Moderate Assistance-helper does LESS THAN HALF the effort. [place] lifts, holds or supports trunk or limbs, but provides less than half the effort. 2-Substantial/Maximal Assistance-helper does MORE THAN HALF the effort. [place] lifts or holds trunk or limbs and provides more than half the effort. 8-Zuqeororu-srbgba does ALL the effort. Patient does none of the effort to complete the activity. Or, the assistance of 2 or more helpers is required for the patient to complete the activity. If activity was not attempted, code reason: 7-Patient Refused. 9-Not Applicable-not attempted and the patient did not perform the activity before the current illness, exacerbation or injury. 10-Not Attempted due to Environmental Limitations-(lack of equipment, weather restraints, etc.). 88-Not Attempted due to Medical Conditions or Safety Concerns. Roll Left to Right (QC): 6 Sit to Lying (QC): 6 Sit to Stand (QC): 5 Chair/Xao-il-Iehjv Xfer(QC): 4 Car Transfer (QC): 4 Gait Training Does the Patient Walk?: Yes Distance: 200' x2 Walk 10 feet (QC): 4 Walk 50 ft with 2 Turns(QC): 4 Walk 150 ft (QC): 4 Walking 10ft/uneven surface-QC: 4 Gait Persons Needed: 1 Gait Assistive Device: None Wheelchair Training Does the Pt Use a Wheelchair?: No Wheel 50 ft with 2 turns (QC): 9 Wheel 150 ft (QC): 9 Stair Training Stair Training: Handrails/: 2 handrails #of Steps: 12 1 Step (curb) (QC): 4 4 Steps (QC): 4 12 Steps (QC): 4 Stairs: Pattern: Reciprocal Balance Picking up an Object (QC): 4 ADL-Treatment Eating (QC): 6 Oral Hygiene (QC): 6 Bathing Location: L Arm, R Arm, L Upper Leg, R Upper Leg, L Lower Leg (including foot), R Lower Leg (including foot), Chest, Abdomen, Buttocks, Perineal Area Shower/Bathe Self (QC): 6 Upper Body Dressing (QC): 6 Lower Body Dressing (QC): 5 On/Off Footwear (QC): 5 Toileting Hygiene (QC): 6 Toilet Transfer (QC): 6 Assessment/Plan Assessment and Plan Assess & Plan/Chief Complaint Assessment: CVA with left sided weakness Latvian speaking only HTN HLP Cluster NEIL hx GERD Hiatal hernia Plan: IRF protocol Monitor BP Cardiology consultation 05/21/2021: Supportive care Intensive rehab Work on balance 05/22/2021: Monitor closely Balance focus therapy 05/23/21: Supportive care Aggressive therapy 05/24/2021: GERD treatment Intensive therapy 05/25/2021: GERD treatment Supportive care 05/26/2021: Supportive care GERD treatment 05/27/2021: Discharge planned for Tuesday Supportive care (1) CVA (cerebral vascular accident) KRYSTIAN ROSADO DO May 27, 2021 06:35
[2021-05-27] MEDS: SUCRALFATE 1 GM (CARAFATE) TAB PO SCH ×4 (06:37→20:42)
[2021-05-27 07:16] VITALS: BP 156/70
[2021-05-27] MEDS: SENNA W/DOCUSATE (SENOKOT S) TABLET PO SCH ×2 (08:26→20:47)
[2021-05-27] MEDS: DOCUSATE SODIUM 100 MG (COLACE) CAP PO SCH ×2 (08:26→20:42)
[2021-05-27] MEDS: PANTOPRAZOLE 40 MG (PROTONIX) TAB PO SCH (08:27)
[2021-05-27] MEDS: CLOPIDOGREL 75 MG (PLAVIX) TABLET PO SCH (08:27)
[2021-05-27] MEDS: polyethylene glycoL POWDER 17 GM (MIRALAX) PACK PO SCH ×2 (08:27→20:47)
[2021-05-27] MEDS: lisINopril 10 MG (PRINIVIL) TABLET PO SCH (08:27)
[2021-05-27] MEDS: FAMOTIDINE 20 MG (PEPCID) TABLET PO SCH ×2 (08:27→20:41)
[2021-05-27] MEDS: ASPIRIN E.C. 81 MG (ECOTRIN) TAB PO SCH (08:27)
--- NOTE | 2021-05-27 09:13 | Occupational Ther Daily Note ---
OT Current Status-Daily Note Subjective Pt requesting to wear shoes. Attempt again at donning shoes, yet pt still unable to don Left due to edema. Appearance Pt left sitting in chair, all needs within reach. Mental Status/Objective Patient Orientation: Person, Place, Situation ADL-Treatment Pt retrieved clothing from closet with Sup. Improved object avoidance and safety with walker management this date. She donned clothing Mod I. Pt requesting to wear shoes. Attempt again at donning shoes, yet pt still unable to don Left due to edema. Bunny hose present in room. Pt able to don bunny hose over toes, but then did not finish pulling completely over heel. Education on purpose of bunny hose and proper wear/schedule. Assist to overnight houseperson heel, pt able to pull up to knees. Pt grimacing in pain with light touch on L toes. RN informed. She stood the sink for grooming tasks, Mod I. Therapy Code Descriptions/Definitions Functional [place] Measure: 0=Not Assessed/NA 4=Minimal Assistance 1=Total Assistance 5=Supervision or Setup 2=Maximal Assistance 6=Modified [place] 3=Moderate Assistance 7=Complete IndependenceSCALE: Activities may be completed with or without assistive devices. 8-Haapvemyqa-wpnebkw completes the activity by him/herself with no assistance from a helper. 5-Set-up or Clean-up Assistance-helper sets up or cleans up; patient completes activity. [place] assists only prior to or following the activity. 4-Supervision or Touching Assistance-helper provides verbal cues and/or touching/steadying and/or contact guard assistance as patient completes act ivity. Assistance may be provided throughout the activity or intermittently. 3-Partial/Moderate Assistance-helper does LESS THAN HALF the effort. [place] lifts, holds or supports trunk or limbs, but provides less than half the effort. 2-Substantial/Maximal Assistance-helper does MORE THAN HALF the effort. [place] lifts or holds trunk or limbs and provides more than half the effort. 0-Yekqdkiqt-vnlcux does ALL the effort. Patient does none of the effort to complete the activity. Or, the assistance of 2 or more helpers is required for the patient to complete the activity. If activity was not attempted, code reason: 7-Patient Refused. 9-Not Applicable-not attempted and the patient did not perform the activity before the current illness, exacerbation or injury. 10-Not Attempted due to Environmental Limitations-(lack of equipment, weather restraints, etc.). 88-Not Attempted due to Medical Conditions or Safety Concerns. Eating (QC): 6 Oral Hygiene (QC): 6 Upper Body Dressing (QC): 6 Lower Body Dressing (QC): 6 On/Off Footwear: 5 Toileting Hygiene (QC): 6 Toilet Transfer (QC): 6 Other Treatment Pt ambulated community distances with use of walker and sup. Improved safety with walker management noted this session, min cues only for preferred positioning when reaching too far out of HAIM. Good carry over with cues during session. Pt participated in simulated "grocery shopping" task where she ambulated around unit to retrieve cards placed at various heights. Emphasis on safety with walker, functional reaching, dynamic standing balance, endurance, and scanning. No LOB during task. Pt then ambulated to laundry room to load dirty clothes into washer. OT carried laundry basket while pt managed walker. Discussion on tossing clothes directly into or next to washer vs putting into a basket when at home. Mod verbal cues on problem solving through steps to turn machine on. Anticipate pt able to complete with familiar machine. Pt also completed dry tub transfer x4 with/without use of shower chair. Pt able to complete both sitting and standing method with supervision, no lob. OT recommending shower chair at this time for improved safety and energy conservation post d/c. Pt reports that she usually stands in a tub filled with water secondary to her shower head being broken. Discussion on purchase of new shower head/hand held shower. Pt in agreement. OT discussed with physical therapy to assist pt with transferring clothes from washer to dryer when finished. Education OT Patient Education: Correct positioning, Progress toward Goal/Update tx plan, Purpose of tx/functional activities, Rehab process, Safety issues Teaching Recipient: Patient Teaching Methods: Demonstration, Discussion Response to Teaching: Verbalize Understanding, Return Demonstration OT Short Term Goals Short Term Goals Eatin Oral hygiene: 6 Toileting hygiene: 6 Shower/bathe self: 6 Upper body dressin Lower body dressin Putting on/taking off footwear: 6 OT Toe Laster Goals [facility]dc Goals Eating (QC): 6 Oral Hygiene (QC): 6 Toileting Hygiene (QC): 6 Shower/Bathe Self (QC): 6 Upper Body Dressing (QC): 6 Lower Body Dressing (QC): 6 On/Off Footwear (QC): 6 1=Demonstrate adherence to instructed precautions during ADL tasks. 2=Patient will verbalize/demonstrate understanding of assistive devices/modifications for ADL. 3=Patient will improve strength/tolerance for activity to enable patient to perform ADL's. OT Education/Plan Problem List/Assessment Assessment: Decreased Activ Tolerance, Decreased Safety Aware, Impaired Coor dination, Impaired I ADL's Discharge Recommendations Plan/Recommendations: Continue POC Equpiment Recommendations-D/C: Rails on Tub/Shower, Bath Chair, Extended Shower Sprayer Treatment Plan/Plan of Care Treatment,Training & Education: Yes Patient would benefit from OT for education, treatment and training to promote independence in ADL's, mobility, safety and/or upper extremity function for ADL's. Plan of Care: ADL Retraining, Functional Mobility, Group Exercise/Act as Ind, UE Funct Exercise/Act Treatment Duration: Jun 01, 2021 Frequency: At least 5 of 7 days/Wk (IRF) Estimated Hrs Per Day: 1.5 hours per day Agreement: Yes Rehab Potential: Good Time/GCodes Start Time: 07:55 Stop Time: 09:25 Total Time Billed (hr/min): 90 Billed Treatment Time 1, ADL (20 min), FA x5 (70 min) Erica Chun OT May 27, 2021 09:13
--- NOTE | 2021-05-27 10:57 | Physical Therapy Daily Note ---
PT Daily Note-Current Subjective Pt in recliner upon arrival and agrees to tx. During tx, pt states pain in R toes. Pain Location: Right Location Body Site: Toe Mental Status Patient Orientation: Person, Place, Time, Situation Transfers SCALE: Activities may be completed with or without assistive devices. 8-Mgribsmreg-djujptz completes the activity by him/herself with no assistance from a helper. 5-Set-up or Clean-up Assistance-helper sets up or cleans up; patient completes activity. [place] assists only prior to or following the activity. 4-Supervision or Touching Assistance-helper provides verbal cues and/or touching/steadying and/or contact guard assistance as patient completes activity. Assistance may be provided throughout the activity or intermittently. 3-Partial/Moderate Assistance-helper does LESS THAN HALF the effort. [place] lifts, holds or supports trunk or limbs, but provides less than half the effort. 2-Substantial/Maximal Assistance-helper does MORE THAN HALF the effort. [place] lifts or holds trunk or limbs and provides more than half the effort. 3-Cnqbqvxru-tphpvw does ALL the effort. Patient does none of the effort to complete the activity. Or, the assistance of 2 or more helpers is required for the patient to complete the activity. If activity was not attempted, code reason: 7-Patient Refused. 9-Not Applicable-not attempted and the patient did not perform the activity before the current illness, exacerbation or injury. 10-Not Attempted due to Environmental Limitations-(lack of equipment, weather restraints, etc.). 88-Not Attempted due to Medical Conditions or Safety Concerns. Roll Left & Right (QC): 6 Sit to Lying (QC): 6 Lying to Sitting/Side of Bed(Q: 6 Sit to Stand (QC): 5 Chair/Bpl-eq-Cyjgo Xfer(QC): 5 Toilet Transfer (QC): 5 Car Transfer (QC): 5 Weight Bearing Full Weight Bearing Full Weight Bearing Gait Training Does the Patient Walk?: Yes Distance: 500' x4 Walk 10 feet (QC): 4 Walk 50 ft with 2 Turns(QC): 4 Walk 150 ft (QC): 4 Walking 10ft/uneven surface-QC: 4 Gait Persons Needed: 1 Gait Assistive Device: None Pt amb on IRU, outside, and on ramp requiring CGA w/ no AD. Pt had slight LOB at times and self corrected. Pt has shuffling, slight antalgic gait. Pt amb w/ UE held out on sides to A pt w/ balance. Wheelchair Training Does the Pt Use a Wheelchair?: No Stair Training Stair Training: Handrails/: No handrail #of Steps: 4 1 Step (curb) (QC): 5 4 Steps (QC): 5 Stairs: Pattern: Step to Pt ascended 4 5" steps w/o use of hand rails. Pt completed SBA with no LOB Balance Picking up an Object (QC): 5 Exercises NuStep Minutes: 15 NuStep Workload: 5 Treatments Pt amb on IRU and entered therapy gym to complete NuStep. Post NuStep, pt doffed socks and donned shoes in order to amb outside. Pt used elevator to get on first floor, and amb outside. Pt amb on ramp and performed stair training, then took a seated RB. Pt then amb back inside and took elevator back to second floor followed by seated RB. FIRST OFFICER AND FLIGHT INSTRUCTOR placed cones throughout IRU at various heights, pt amb and grabbed them. Pt able to pick cones up from floor w/ UE support on grab railings in hallway. Pt had no LOB w/ reaching and bending. FIRST OFFICER AND FLIGHT INSTRUCTOR then placed cones throughout kitchen, in cabinets and drawers of various heights, pt able to open/close cabinets and grab cones w/o LOB. Pt took seated RB, then amb back to therapy gym. Pt kicked ball while standing, having to reach ball from out of COG. Pt had slight LOB but self corrected. Pt in standing bounced and caught ball. Pt took seated RB, then completed car transfer. Pt returned to room and used BR, able to doff/don pants and wash hands SBA. Pt returned to recliner w/ all needs met, call light in hand. Assessment Current Status: Good Progress Pt increasing strength, endurance, and balance PT Short Term Goals Short Term Goals Time Frame: May 27, 2021 Roll Left & Right: 6 Sit to lyin Lying to sitting on side of be: 6 Sit to stand: 4 Chair/cbt-ax-dixfg transfer: 4 (SBA) Walk 10 feet: 4 (SBA) Walk 50 feet with two turns: 4 (SBA) Walk 150 feet: 4 (SBA) PT [facility] Goals Pressroom Foreman Goals PT [facility] Goals Time Frame: Jun 10, 2021 Roll Left & Right (QC): 6 Sit to Lying (QC): 6 Lying-Sitting on Side/Bed(QC): 6 Sit to Stand (QC): 5 Chair/Mxn-sx-Enfbh Xfer(QC): 5 Toilet Transfer (QC): 5 Car Transfer (QC): 5 Does the Patient Walk: Yes Walk 10 feet (QC): 5 Walk 50ft with 2 Turns (QC): 5 Walk 150 ft (QC): 5 Walking 10ft on Uneven Surface: 5 1 Step (curb) (QC): 4 (SBA) 4 Steps (QC): 4 (SBA) 12 Steps (QC): 88 Picking up an Object (QC): 4 (SBA) Wheel 50 feet with 2 turns (QC: 9 Wheel 150 feet: 9 PT Plan Treatment/Plan Treatment Plan: Continue Plan of Care Treatment Plan: Bed Mobility, Education, Functional Activity Tee, Functional Strength, Group Therapy, Gait, Safety, Therapeutic Exercise, Transfers Treatment Duration: Jun 10, 2021 Frequency: At least 5 of 7 days/Wk (IRF) Estimated Hrs Per Day: 1.5 hours per day Patient and/or Family Agrees t: Yes Time/GCodes Time In: 930 Time Out: 1100 Total Billed Treatment Time: 90 Total Billed Treatment 1, FA x3, GT x2, Ex ADRIANA KIM FIRST OFFICER AND FLIGHT INSTRUCTOR May 27, 2021 10:57
--- NOTE | 2021-05-27 17:25 | Progress Note - Cardiology ---
Cardiology SOAP Progress Note Subjective: No cp or palp or syncope or shortness of breath Gen weakness and malaise present No n/v/d Objective: I&O/Vital Signs 05/27/21 05/27/21 05/27/21 05/27/21 06:45 07:16 08:34 13:00 Temp 36.2 Pulse 81 68 99 Resp 18 B/P (MAP) 156/70 (98) Pulse Ox 99 O2 Delivery Room Air Room Air Constitutional: AAO x 3, well-developed, well-nourished Respiratory: No accessory muscle use; other (good, bilateral air entry) Cardiovascular: regular rate-rhythm, S1 and S2, systolic murmur (faint DALILA at card basee) Gastrointestional: No tender; soft; No guarding, No rebound; audible bowel sounds Extremities: No clubbing, No cyanosis Neurologic/Psychiatric: oriented x 3, other (mild left upper and lower limb weakness) Skin: No rash on exposed areas, No ulcerations on exposed areas A/P: Assessment: Non-hemorragic CVA in late Apr 2021 resulting in L-sided weakness - carotid u/s at [place], [place] on 05/21/21: mild bilateral carotid plaque Hypertension, fair control Tele: NSR with PACs Echo 05/22/21: LVEF 55-60%, very mild Plan: * Continue current regimen * Dr Norris managing CVA * Monitor labs from time to time SPENSER WOODS MD FACP [facility] May 27, 2021 17:25
[2021-05-27 20:00] VITALS: BP 114/55
[2021-05-28] MEDS: SUCRALFATE 1 GM (CARAFATE) TAB PO SCH ×4 (06:23→20:37)
[2021-05-28 07:45] VITALS: BP 136/65
[2021-05-28] MEDS: lisINopril 10 MG (PRINIVIL) TABLET PO SCH (08:30)
[2021-05-28] MEDS: FAMOTIDINE 20 MG (PEPCID) TABLET PO SCH ×2 (08:30→20:37)
[2021-05-28] MEDS: ASPIRIN E.C. 81 MG (ECOTRIN) TAB PO SCH (08:30)
[2021-05-28] MEDS: CLOPIDOGREL 75 MG (PLAVIX) TABLET PO SCH (08:30)
[2021-05-28] MEDS: PANTOPRAZOLE 40 MG (PROTONIX) TAB PO SCH (08:30)
--- NOTE | 2021-05-28 08:58 | Occupational Ther Daily Note ---
OT Current Status-Daily Note Subjective Pt reports mild soreness in shoulders due to increased activity and exercises. She continues to report pain in toes, but only with touch or when donning socks/shoes. Once shoes/socks donned, pain resolves. Mental Status/Objective Patient Orientation: Person, Place, Time, Situation ADL-Treatment Pt retrieved clothes, mod I for use of walker. Great improvement in speed and safety with walker management noted this session. Pt able to recall safety cues given during previous session regarding tub transfer and completed with Mod I. Full shower performed; pt able to wash all body parts, no cues needed for safety. She donned all clothing Mod I. Assist only to don bunny hose. Extra time needed to tie shoes due to reduced coordination, but no assist needed. Therapy Code Descriptions/Definitions Functional [place] Measure: 0=Not Assessed/NA 4=Minimal Assistance 1=Total Assistance 5=Supervision or Setup 2=Maximal Assistance 6=Modified [place] 3=Moderate Assistance 7=Complete IndependenceSCALE: Activities may be completed with or without assistive devices. 9-Edukhknjrg-bafxilf completes the activity by him/herself with no assistance from a helper. 5-Set-up or Clean-up Assistance-helper sets up or cleans up; patient completes activity. [place] assists only prior to or following the activity. 4-Supervision or Touching Assistance-helper provides verbal cues and/or touching/steadying and/or contact guard assistance as patient completes activity. Assistance may be provided throughout the activity or intermittently. 3-Partial/Moderate Assistance-helper does LESS THAN HALF the effort. [place] lifts, holds or supports trunk or limbs, but provides less than half the effort. 2-Substantial/Maximal Assistance-helper does MORE THAN HALF the effort. [place] lifts or holds trunk or limbs and provides more than half the effort. 3-Zlfppzsyz-sjvfdn does ALL the effort. Patient does none of the effort to complete the activity. Or, the assistance of 2 or more helpers is required for the patient to complete the activity. If activity was not attempted, code reason: 7-Patient Refused. 9-Not Applicable-not attempted and the patient did not perform the activity before the current illness, exacerbation or injury. 10-Not Attempted due to Environmental Limitations-(lack of equipment, weather restraints, etc.). 88-Not Attempted due to Medical Conditions or Safety Concerns. Eating (QC): 6 Oral Hygiene (QC): 6 Bathing Location: L Arm, R Arm, L Upper Leg, R Upper Leg, L Lower Leg (including foot), R Lower Leg (including foot), Chest, Abdomen, Buttocks, Perineal Area Shower/Bathe Self (QC): 6 Upper Body Dressing (QC): 6 Lower Body Dressing (QC): 6 On/Off Footwear: 5 Toileting Hygiene (QC): 6 Toilet Transfer (QC): 6 Other Treatment Pt ambulated around room to organize/pack belongings for upcoming discharge. No lob or unsteadiness with cane, sup for safety. Reminders on energy conservation for homemaking tasks. When picking items up from lower heights, reminders/visual cues on proper body mechanics. Good carry over throughout task. Education OT Patient Education: Energy conservation, Progress toward Goal/Update tx plan Teaching Recipient: Patient Teaching Methods: Discussion Response to Teaching: Verbalize Understanding, Return Demonstration OT Short Term Goals Short Term Goals Eatin Oral hygiene: 6 Toileting hygiene: 6 Shower/bathe self: 6 Upper body dressin Lower body dressin Putting on/taking off footwear: 6 OT Air Reduction Equipment Operator Goals [place] Goals Eating (QC): 6 (met) Oral Hygiene (QC): 6 (met) Toileting Hygiene (QC): 6 (met) Shower/Bathe Self (QC): 6 (met) Upper Body Dressing (QC): 6 (met) Lower Body Dressing (QC): 6 (met) On/Off Footwear (QC): 6 (partially met, set up for bunny hose only.) 1=Demonstrate adherence to instructed precautions during ADL tasks. 2=Patient will verbalize/demonstrate understanding of assistive devices/modifications for ADL. 3=Patient will improve strength/tolerance for activity to enable patient to perform ADL's. OT Education/Plan Problem List/Assessment Assessment: Decreased UE Strength, Impaired Coordination, Impaired I ADL's Discharge Recommendations Plan/Recommendations: Discharge/Goals Met Therapy Discharge Recommendati: Homemaker Support, Home & Family Equpiment Recommendations-D/C: Rails on Tub/Shower, Bath Chair, Extended Shower Sprayer Treatment Plan/Plan of Care Treatment,Training & Education: Yes Patient would benefit from OT for education, treatment and training to promote independence in ADL's, mobility, safety and/or upper extremity function for ADL's. Plan of Care: ADL Retraining, Functional Mobility, Group Exercise/Act as Ind, UE Funct Exercise/Act Treatment Duration: Jun 01, 2021 Frequency: At least 5 of 7 days/Wk (IRF) Estimated Hrs Per Day: 1.5 hours per day Agreement: Yes Rehab Potential: Good Time/GCodes Start Time: 07:55 Stop Time: 09:25 Total Time Billed (hr/min): 90 Billed Treatment Time 1, ADL x5 (75 min), FA (15 min) Erica Chun OT May 28, 2021 08:58
[2021-05-28] MEDS: polyethylene glycoL POWDER 17 GM (MIRALAX) PACK PO SCH ×2 (09:12→20:40)
--- NOTE | 2021-05-28 09:36 | Progress Note - Cardiology ---
Cardiology SOAP Progress Note Subjective: Gen weakness and malaise No cp or palp or syncope or shortness of breath No n/v/d Objective: I&O/Vital Signs 05/28/21 05/28/21 01:00 07:45 Temp 36.5 Pulse 70 67 Resp 18 B/P (MAP) 136/65 (88) Pulse Ox 100 O2 Delivery Room Air Constitutional: AAO x 3, well-developed, well-nourished Respiratory: No accessory muscle use; other (good, bilateral air entry) Cardiovascular: regular rate-rhythm, S1 and S2, systolic murmur (faint DALILA at card basee) Gastrointestional: No tender; soft; No guarding, No rebound; audible bowel sounds Extremities: No clubbing, No cyanosis Neurologic/Psychiatric: oriented x 3, other (mild left upper and lower limb weakness) Skin: No rash on exposed areas, No ulcerations on exposed areas A/P: Assessment: 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
[2021-05-28] MEDS: DOCUSATE SODIUM 100 MG (COLACE) CAP PO SCH ×2 (09:55→20:37)
[2021-05-28] MEDS: SENNA W/DOCUSATE (SENOKOT S) TABLET PO SCH ×2 (09:55→20:40)
--- NOTE | 2021-05-28 11:03 | Physical Therapy Daily Note ---
PT Daily Note-Current Subjective Pt in recliner upon arrival and agrees to tx. Pt states pain in L toes, but pt said she thinks its from the JOEL hose. Pain Location: Left Location Body Site: Toe Mental Status Patient Orientation: Person, Place, Situation Transfers SCALE: Activities may be completed with or without assistive devices. 0-Izielenusu-drcwdbr completes the activity by him/herself with no assistance from a helper. 5-Set-up or Clean-up Assistance-helper sets up or cleans up; patient completes activity. [place] assists only prior to or following the activity. 4-Supervision or Touching Assistance-helper provides verbal cues and/or touching/steadying and/or contact guard assistance as patient completes activity. Assistance may be provided throughout the activity or intermittently. 3-Partial/Moderate Assistance-helper does LESS THAN HALF the effort. [place] lifts, holds or supports trunk or limbs, but provides less than half the effort. 2-Substantial/Maximal Assistance-helper does MORE THAN HALF the effort. [place] lifts or holds trunk or limbs and provides more than half the effort. 8-Xnteoaemy-rjjfpx does ALL the effort. Patient does none of the effort to complete the activity. Or, the assistance of 2 or more helpers is required for the patient to complete the activity. If activity was not attempted, code reason: 7-Patient Refused. 9-Not Applicable-not attempted and the patient did not perform the activity before the current illness, exacerbation or injury. 10-Not Attempted due to Environmental Limitations-(lack of equipment, weather restraints, etc.). 88-Not Attempted due to Medical Conditions or Safety Concerns. Roll Left & Right (QC): 6 Sit to Lying (QC): 6 Lying to Sitting/Side of Bed(Q: 6 Sit to Stand (QC): 5 Chair/Ulm-qc-Wvgfw Xfer(QC): 5 Toilet Transfer (QC): 5 Car Transfer (QC): 5 Weight Bearing Full Weight Bearing Full Weight Bearing Gait Training Does the Patient Walk?: Yes Distance: 200' Walk 10 feet (QC): 5 Walk 50 ft with 2 Turns(QC): 5 Walk 150 ft (QC): 5 Walking 10ft/uneven surface-QC: 5 Gait Assistive Device: None Stair Training Stair Training: Handrails/: 1 handrail #of Steps: 12 1 Step (curb) (QC): 5 4 Steps (QC): 5 12 Steps (QC): 5 Stairs: Pattern: Step to Balance Picking up an Object (QC): 5 Treatments EXCEL SPECIALIST demonstrated bed mobility prior to pt completing. Pt sit to stand from recliner, amb to bed and sits EOB. Pt completes bed mobility and amb 200' on IRU. Pt takes seated RB as EXCEL SPECIALIST demonstrates car transfer, pt able to complete w/o any difficulties. Pt amb on uneven surface, followed by stairs. Pt completes 12 stairs w/ 1 handrail and no LOB observed. Pt takes seated RB as EXCEL SPECIALIST places cones throughout hallway, placing 2 on floor, 2 on counters, and one on a raised surface. Pt able to poultry picker all cones w/o difficulty and SBA. Pt takes RB, then amb to kitchen on IRU. EXCEL SPECIALIST places cones throughout kitchen, in cabinets and drawers of various heights, pt able to find and reach cones. Pt returns to therapy gym and completes seated kicking activity, having to reach to both sides and kick ball. Pt then stands on AirEx and throws ball and catches x30 then bounces and catches x30. After seated RB, pt side steps over cones both directions. Pt then instructed to figure 8 through cones, but pt unable to comprehend activity. Pt then returns to recliner in room and was left with all needs met, call light in hand. Assessment Current Status: Good Progress Pt increasing endurance, strength, and balance PT Short Term Goals Short Term Goals Time Frame: May 27, 2021 Roll Left & Right: 6 Sit to lyin Lying to sitting on side of be: 6 Sit to stand: 4 Chair/jkq-jd-otpuz transfer: 4 (SBA) Walk 10 feet: 4 (SBA) Walk 50 feet with two turns: 4 (SBA) Walk 150 feet: 4 (SBA) PT Tailoring Teacher Goals Usp Goals PT Tailoring Teacher Goals Time Frame: Jun 10, 2021 Roll Left & Right (QC): 6 Sit to Lying (QC): 6 Lying-Sitting on Side/Bed(QC): 6 Sit to Stand (QC): 5 Chair/Mge-qw-Vljiq Xfer(QC): 5 Toilet Transfer (QC): 5 Car Transfer (QC): 5 Does the Patient Walk: Yes Walk 10 feet (QC): 5 Walk 50ft with 2 Turns (QC): 5 Walk 150 ft (QC): 5 Walking 10ft on Uneven Surface: 5 1 Step (curb) (QC): 4 (SBA) 4 Steps (QC): 4 (SBA) 12 Steps (QC): 88 Picking up an Object (QC): 4 (SBA) Wheel 50 feet with 2 turns (QC: 9 Wheel 150 feet: 9 PT Plan Treatment/Plan Treatment Plan: Continue Plan of Care Treatment Plan: Bed Mobility, Education, Functional Activity Tee, Functional Strength, Group Therapy, Gait, Safety, Therapeutic Exercise, Transfers Treatment Duration: Jun 10, 2021 Frequency: At least 5 of 7 days/Wk (IRF) Estimated Hrs Per Day: 1.5 hours per day Patient and/or Family Agrees t: Yes Time/GCodes Time In: 1000 Time Out: 1100 Total Billed Treatment Time: 60 Total Billed Treatment 1, GT, NM, FA x2 ADRIANA KIM EXCEL SPECIALIST May 28, 2021 11:03
--- NOTE | 2021-05-28 12:45 | PM&R Progress Note ---
Subjective HPI/CC On Admission Date Seen by Provider: May 28, 2021 Time Seen by Provider: 12:30 stroke, left sided weakness Subjective/Events-last exam 05/28/2021: Discharge plan for tomorrow Monitor closely 05/27/2021: Pt wants to go home on Tuesday Had a BM two days ago Feels pretty good otherwise No concerns 05/26/2021: Pt doing really well No major issues Bowels moved yesterday Checked meds and labs 05/25/2021: Patient doing pretty well Bowels moved yesterday Telemetry shows normal sinus rhythm Pepcid 20 mg twice daily along with Protonix 40 mg daily has been helpful Carafate will be added She reports she has a hiatal hernia 05/24/2021: Patient doing really well Having a lot of reflux Ordered Pepcid and Protonix Check meds and labs 05/23/2021: Patient doing really well Working with therapy Bowels are moving Eating and drinking well Balance issues are improving 05/22/2021: Hanh reports some mild non-exertional reproducible left sided chest pain overnight. No nausea, diaphoresis, leg pain, radiation to the arm or neck, no palpitations. This is likely musculoskeletal. Unlikely to be PE or ACS given the pain is reproduced with palpation and the patient is on both aspirin and plavix. Doing well otherwise, worked with PT and OT yesterday and is learning to use the walker properly. 05/21/2021: Patient doing really well Reports left-sided tingling Bowels moved yesterday Left shoulder pain alleviated with Tylenol Walks pretty well Review of Systems Neurological: Weakness Objective Exam Vital Signs Vital Signs Date Time Temp Pulse Resp B/P (MAP) Pulse Ox O2 Delivery O2 Flow Rate FiO2 05/29/21 01:00 60 05/28/21 20:38 99 Room Air 05/28/21 19:35 36.6 16 138/77 (97) Capillary Refill : General Appearance: No Apparent Distress, WD/WN, Obese HEENT: PERRL/EOMI, Normal ENT Inspection, Pharynx Normal Neck: Full Range of Motion, Normal Inspection, Non Tender, Supple, Carotid Br uit Respiratory: Chest Non Tender, Lungs Clear, Normal Breath Sounds, No Accessory Muscle Use, No Respiratory Distress Cardiovascular: Regular Rate, Rhythm, No Edema, No Gallop, No JVD, No Murmur, Normal Peripheral Pulses Gastrointestinal: Normal Bowel Sounds, No Organomegaly, No Pulsatile Mass, Non Tender, Soft Extremity: Normal Capillary Refill, Normal Inspection, Normal Range of Motion, Non Tender, No Calf Tenderness, No Pedal Edema Neurologic/Psychiatric: Alert, Oriented x3, Normal Mood/Affect, Abnormal Gait (off balance), Motor Weakness (left sided but generalized) Skin: Normal Color, Warm/Dry Lymphatic: No Adenopathy Results/Procedures Lab Patient resulted labs reviewed. FIM Transfers Therapy Code Descriptions/Definitions Functional [place] Measure: 0=Not Assessed/NA 4=Minimal Assistance 1=Total Assistance 5=Supervision or Setup 2=Maximal Assistance 6=Modified [place] 3=Moderate Assistance 7=Complete IndependenceSCALE: Activities may be completed with or without assistive devices. 1-Rcdrsmoxmz-gajrgpy completes the activity by him/herself with no assistance from a helper. 5-Set-up or Clean-up Assistance-helper sets up or cleans up; patient completes activity. [place] assists only prior to or following the activity. 4-Supervision or Touching Assistance-helper provides verbal cues and/or touching/steadying and/or contact guard assistance as patient completes activity. Assistance may be provided throughout the activity or intermittently. 3-Partial/Moderate Assistance-helper does LESS THAN HALF the effort. [place] lifts, holds or supports trunk or limbs, but provides less than half the effort. 2-Substantial/Maximal Assistance-helper does MORE THAN HALF the effort. [place] lifts or holds trunk or limbs and provides more than half the effort. 2-Ulxmiwfsv-cnmlwg does ALL the effort. Patient does none of the effort to complete the activity. Or, the assistance of 2 or more helpers is required for the patient to complete the activity. If activity was not attempted, code reason: 7-Patient Refused. 9-Not Applicable-not attempted and the patient did not perform the activity before the current illness, exacerbation or injury. 10-Not Attempted due to Environmental Limitations-(lack of equipment, weather restraints, etc.). 88-Not Attempted due to Medical Conditions or Safety Concerns. Roll Left to Right (QC): 6 Sit to Lying (QC): 6 Sit to Stand (QC): 5 Chair/Gdd-go-Lhukm Xfer(QC): 5 Car Transfer (QC): 5 Gait Training Does the Patient Walk?: Yes Distance: 200' Walk 10 feet (QC): 5 Walk 50 ft with 2 Turns(QC): 5 Walk 150 ft (QC): 5 Walking 10ft/uneven surface-QC: 5 Gait Persons Needed: 1 Gait Assistive Device: None Wheelchair Training Does the Pt Use a Wheelchair?: No Wheel 50 ft with 2 turns (QC): 9 Wheel 150 ft (QC): 9 Stair Training Stair Training: Handrails/: 1 handrail #of Steps: 12 1 Step (curb) (QC): 5 4 Steps (QC): 5 12 Steps (QC): 5 Stairs: Pattern: Step to Balance Picking up an Object (QC): 5 ADL-Treatment Eating (QC): 6 Oral Hygiene (QC): 6 Bathing Location: L Arm, R Arm, L Upper Leg, R Upper Leg, L Lower Leg (including foot), R Lower Leg (including foot), Chest, Abdomen, Buttocks, Perineal Area Shower/Bathe Self (QC): 6 Upper Body Dressing (QC): 6 Lower Body Dressing (QC): 6 On/Off Footwear (QC): 5 Toileting Hygiene (QC): 6 Toilet Transfer (QC): 6 Assessment/Plan Assessment and Plan Assess & Plan/Chief Complaint Assessment: CVA with left sided weakness [place] speaking only HTN HLP Cluster NEIL hx GERD Hiatal hernia Plan: IRF protocol Monitor BP Cardiology consultation 05/21/2021: Supportive care Intensive rehab Work on balance 05/22/2021: Monitor closely Balance focus therapy 05/23/21: Supportive care Aggressive therapy 05/24/2021: GERD treatment Intensive therapy 05/25/2021: GERD treatment Supportive care 05/26/2021: Supportive care GERD treatment 05/27/2021: Discharge planned for Tuesday Supportive care 05/28/2021: Supportive care Discharge planned (1) CVA (cerebral vascular accident) KRYSTIAN ROSADO DO May 28, 2021 12:45
[2021-05-28] MEDS: ACETAMINOPHEN 500 MG TAB (TYLENOL) PO PRN (13:17)
--- NOTE | 2021-05-28 13:29 | Physical Therapy Daily Note ---
PT Daily Note-Current Subjective Pt in recliner upon arrival and agrees to tx. Pt states pain in lower back. Pain Location: Lower Location Body Site: Back Mental Status Patient Orientation: Person, Place, Situation Transfers SCALE: Activities may be completed with or without assistive devices. 4-Rjqgmxoryf-rupdbkt completes the activity by him/herself with no assistance from a helper. 5-Set-up or Clean-up Assistance-helper sets up or cleans up; patient completes activity. [place] assists only prior to or following the activity. 4-Supervision or Touching Assistance-helper provides verbal cues and/or touching/steadying and/or contact guard assistance as patient completes activity. Assistance may be provided throughout the activity or intermittently. 3-Partial/Moderate Assistance-helper does LESS THAN HALF the effort. [place] lift s, holds or supports trunk or limbs, but provides less than half the effort. 2-Substantial/Maximal Assistance-helper does MORE THAN HALF the effort. [place] lifts or holds trunk or limbs and provides more than half the effort. 9-Fttxcngjb-ojybgn does ALL the effort. Patient does none of the effort to complete the activity. Or, the assistance of 2 or more helpers is required for the patient to complete the activity. If activity was not attempted, code reason: 7-Patient Refused. 9-Not Applicable-not attempted and the patient did not perform the activity before the current illness, exacerbation or injury. 10-Not Attempted due to Environmental Limitations-(lack of equipment, weather restraints, etc.). 88-Not Attempted due to Medical Conditions or Safety Concerns. Weight Bearing Full Weight Bearing Full Weight Bearing Gait Training Does the Patient Walk?: Yes Distance: 150' Gait Assistive Device: None Exercises NuStep Minutes: 15 NuStep Workload: 5 Treatments Pt sit to stand from recliner and amb on IRU w/ SBA and no AD. Pt enters therapy gym and completes NuStep, on WL of 6 for first 5 mins, and WL of 5 for last 10 mins. Pt takes short RB then amb 150' on IRU and returns to room. Pt sits in recliner w/ all needs met and call light in hand. Assessment Current Status: Good Progress Pt increasing strength and endurance PT Short Term Goals Short Term Goals Time Frame: May 27, 2021 Roll Left & Right: 6 Sit to lyin Lying to sitting on side of be: 6 Sit to stand: 4 Chair/wnt-lt-eruyl transfer: 4 (SBA) Walk 10 feet: 4 (SBA) Walk 50 feet with two turns: 4 (SBA) Walk 150 feet: 4 (SBA) PT Senior Living Goals Senior Living Goals PT Classification Analyst Goals Time Frame: Jun 10, 2021 Roll Left & Right (QC): 6 Sit to Lying (QC): 6 Lying-Sitting on Side/Bed(QC): 6 Sit to Stand (QC): 5 Chair/Ler-ku-Nohdr Xfer(QC): 5 Toilet Transfer (QC): 5 Car Transfer (QC): 5 Does the Patient Walk: Yes Walk 10 feet (QC): 5 Walk 50ft with 2 Turns (QC): 5 Walk 150 ft (QC): 5 Walking 10ft on Uneven Surface: 5 1 Step (curb) (QC): 4 (SBA) 4 Steps (QC): 4 (SBA) 12 Steps (QC): 88 Picking up an Object (QC): 4 (SBA) Wheel 50 feet with 2 turns (QC: 9 Wheel 150 feet: 9 PT Plan Treatment/Plan Treatment Plan: Continue Plan of Care Treatment Plan: Bed Mobility, Education, Functional Activity Tee, Functional Strength, Group Therapy, Gait, Safety, Therapeutic Exercise, Transfers Treatment Duration: Jun 10, 2021 Frequency: At least 5 of 7 days/Wk (IRF) Estimated Hrs Per Day: 1.5 hours per day Patient and/or Family Agrees t: Yes Time/GCodes Time In: 1300 Time Out: 1330 Total Billed Treatment Time: 30 Total Billed Treatment 1, Ex, GT ADRIANA KIM APPLICATIONS SUPPORT SPECIALIST May 28, 2021 13:29
[2021-05-28 19:35] VITALS: BP 138/77
[2021-05-28] MEDS ORDERED: ASPI-1238 PO (21:03)
[2021-05-28] MEDS ORDERED: CLOP75TA28 PO (21:03)
[2021-05-28] MEDS ORDERED: SUCR1TAB PO (21:03)
[2021-05-28] MEDS ORDERED: PANT40TA52 PO (21:03)
[2021-05-28] MEDS ORDERED: LISI10TA25 PO (21:03)
[2021-05-28] MEDS ORDERED: FAMO20TA5 PO (21:03)
[2021-05-28] MEDS ORDERED: ATOR40TA PO (21:03)
--- NOTE | 2021-05-29 06:07 | Discharge Summary ---
Diagnosis/Chief Complaint Date of Admission May 19, 2021 at 16:17 Date of Discharge Discharge Date: May 29, 2021 Discharge Diagnosis Assessment: CVA with left sided weakness [place] speaking only HTN HLP Cluster NEIL hx GERD Hiatal hernia Plan: IRF protocol Monitor BP Cardiology consultation 05/21/2021: Supportive care Intensive rehab Work on balance 05/22/2021: Monitor closely Balance focus therapy 05/23/21: Supportive care Aggressive therapy 05/24/2021: GERD treatment Intensive therapy 05/25/2021: GERD treatment Supportive care 05/26/2021: Supportive care GERD treatment 05/27/2021: Discharge planned for Tuesday Supportive care 05/28/2021: Supportive care Discharge planned (1) CVA (cerebral vascular accident) Discharge Summary Discharge Physical Examination Allergies: Coded Allergies: Pork/Porcine Containing Products (Verified Allergy, Unknown, Hives, 05/19/21) shellfish derived (Verified Allergy, Unknown, Hives, 05/19/21) Vitals & I&Os Vital Signs Date Time Temp Pulse Resp B/P (MAP) Pulse Ox O2 Delivery O2 Flow Rate FiO2 05/29/21 11:30 36.6 84 18 143/63 98 Room Air General Appearance: Alert, Oriented X3, Cooperative Respiratory: Clear to Auscultation Cardiovascular: Regular Rate Hospital Course Was the Problem List Reviewed?: Yes Patient had an uneventful hospital course she was admitted to inpatient rehab after suffering a CVA. Patient underwent aggressive therapy and was able to participate in everything asked of her. Patient had residual weakness but the use of a cane and fall risk prevention she was able to discharge home with family support. NSR on [place]. Cardiology consultation appreciated. Labs (last 24 hrs) Laboratory Tests 05/20/21 05:37: White Blood Count 6.3, Red Blood Count 4.22, Hemoglobin 12.2, Hematocrit 40, Mean Corpuscular Volume 94, Mean Corpuscular Hemoglobin 29, Mean Corpuscular He moglobin Concent 31L, Red Cell Distribution Width 13.2, Platelet Count 284, Mean Platelet Volume 9.5, Immature Granulocyte % (Auto) 0, Neutrophils (%) (Auto) 55, Lymphocytes (%) (Auto) 33, Monocytes (%) (Auto) 8, Eosinophils (%) (Auto) 2, Basophils (%) (Auto) 1, Neutrophils # (Auto) 3.5, Lymphocytes # (Auto) 2.1, Monocytes # (Auto) 0.5, Eosinophils # (Auto) 0.1, Basophils # (Auto) 0.1, Immature Granulocyte # (Auto) 0.0, Sodium Level 140, Potassium Level 4.3, Chloride Level 108H, Carbon Dioxide Level 23, Anion Gap 9, Blood Urea Nitrogen 18, Creatinine 0.73, Estimat Glomerular Filtration Rate 80, BUN/Creatinine Ratio 25, Glucose Level 103, Calcium Level 9.6, Corrected Calcium 9.8, Total Bilirubin 0.4, Aspartate Amino Transf (AST/SGOT) 25, Alanine Aminotransferase (ALT/SGPT) 35, Alkaline Phosphatase 88, Total Protein 7.4, Albumin 3.8 05/25/21 05:43: White Blood Count 7.1, Red Blood Count 4.27, Hemoglobin 12.4, Hematocrit 40, Mean Corpuscular Volume 93, Mean Corpuscular Hemoglobin 29, Mean Corpuscular Hemoglobin Concent 31L, Red Cell Distribution Width 13.0, Platelet Count 278, Mean Platelet Volume 9.5, Immature Granulocyte % (Auto) 0, Neutrophils (%) (Auto) 57, Lymphocytes (%) (Auto) 31, Monocytes (%) (Auto) 9, Eosinophils (%) (Auto) 2, Basophils (%) (Auto) 1, Neutrophils # (Auto) 4.0, Lymphocytes # (Auto) 2.2, Monocytes # (Auto) 0.6, Eosinophils # (Auto) 0.1, Basophils # (Auto) 0.1, Immature Granulocyte # (Auto) 0.0, Sodium Level 140, Potassium Level 4.1, Chloride Level 107, Carbon Dioxide Level 26, Anion Gap 7, Blood Urea Nitrogen 10, Creatinine 0.75, Estimat Glomerular Filtration Rate 77, BUN/Creatinine Ratio 13, Glucose Level 91, Calcium Level 9.7, Corrected Calcium 9.8, Total Bilirubin 0.5, Aspartate Amino Transf (AST/SGOT) 18, Alanine Aminotransferase (ALT/SGPT) 23, Alkaline Phosphatase 78, Total Protein 7.5, Albumin 3.9 Pending Labs Laboratory Tests 05/20/21 05:37: White Blood Count 6.3, Red Blood Count 4.22, Hemoglobin 12.2, Hematocrit 40, Mean Corpuscular Volume 94, Mean Corpuscular Hemoglobin 29, Mean Corpuscular Hemoglobin Concent 31, Red Cell Distribution Width 13.2, Platelet Count 284, Mean Platelet Volume 9.5, Immature Granulocyte % (Auto) 0, Neutrophils (%) (Auto) 55, Lymphocytes (%) (Auto) 33, Monocytes (%) (Auto) 8, Eosinophils (%) (Auto) 2, Basophils (%) (Auto) 1, Neutrophils # (Auto) 3.5, Lymphocytes # (Auto) 2.1, Monocytes # (Auto) 0.5, Eosinophils # (Auto) 0.1, Basophils # (Auto) 0.1, Immature Granulocyte # (Auto) 0.0, Sodium Level 140, Potassium Level 4.3, Chloride Level 108, Carbon Dioxide Level 23, Anion Gap 9, Blood Urea Nitrogen 18, Creatinine 0.73, Estimat Glomerular Filtration Rate 80, BUN/Creatinine Ratio 25, Glucose Level 103, Calcium Level 9.6, Corrected Calcium 9.8, Total Bilirubin 0.4, Aspartate Amino Transf (AST/SGOT) 25, Alanine Aminotransferase (ALT/SGPT) 35, Alkaline Phosphatase 88, Total Protein 7.4, Albumin 3.8 05/25/21 05:43: White Blood Count 7.1, Red Blood Count 4.27, Hemoglobin 12.4, Hematocrit 40, Mean Corpuscular Volume 93, Mean Corpuscular Hemoglobin 29, Mean Corpuscular Hemoglobin Concent 31, Red Cell Distribution Width 13.0, Platelet Count 278, Mean Platelet Volume 9.5, Immature Granulocyte % (Auto) 0, Neutrophils (%) (Auto) 57, Lymphocytes (%) (Auto) 31, Monocytes (%) (Auto) 9, Eosinophils (%) (Auto) 2, Basophils (%) (Auto) 1, Neutrophils # (Auto) 4.0, Lymphocytes # (Auto) 2.2, Monocytes # (Auto) 0.6, Eosinophils # (Auto) 0.1, Basophils # (Auto) 0.1, Immature Granulocyte # (Auto) 0.0, Sodium Level 140, Potassium Level 4.1, Chloride Level 107, Carbon Dioxide Level 26, Anion Gap 7, Blood Urea Nitrogen 10, Creatinine 0.75, Estimat Glomerular Filtration Rate 77, BUN/Creatinine Ratio 13, Glucose Level 91, Calcium Level 9.7, Corrected Calcium 9.8, Total Bilirubin 0.5, Aspartate Amino Transf (AST/SGOT) 18, Alanine Aminotransferase (ALT/SGPT) 23, Alkaline Phosphatase 78, Total Protein 7.5, Albumin 3.9 Discharge Home Medications: Active Scripts Active Sucralfate 1 Gm Tablet 1 Gm PO ACHS Famotidine 20 Mg Tablet 20 Mg PO BID Lisinopril 10 Mg Tablet 10 Mg PO DAILY Lipitor (Atorvastatin Calcium) 40 Mg Tablet 40 Mg PO HS Clopidogrel (Clopidogrel Bisulfate) 75 Mg Tablet 75 Mg PO DAILY Aspirin EC (Aspirin) 81 Mg Tablet.dr 81 Mg PO DAILY Pantoprazole Sodium 40 Mg Tablet.dr 40 Mg PO DAILY Instructions to patient/family Please see electronic discharge instructions given to patient. Diagnosis/Problems Diagnosis/Problems (1) CVA (cerebral vascular accident) KRYSTIAN ROSADO DO May 29, 2021 06:07
[2021-05-29] MEDS: SUCRALFATE 1 GM (CARAFATE) TAB PO SCH (06:25)
[2021-05-29 07:46] VITALS: BP 143/63
[2021-05-29] MEDS: FAMOTIDINE 20 MG (PEPCID) TABLET PO SCH (09:09)
[2021-05-29] MEDS: ASPIRIN E.C. 81 MG (ECOTRIN) TAB PO SCH (09:10)
[2021-05-29] MEDS: ACETAMINOPHEN 500 MG TAB (TYLENOL) PO PRN (09:10)
[2021-05-29] MEDS: lisINopril 10 MG (PRINIVIL) TABLET PO SCH (09:10)
[2021-05-29] MEDS: PANTOPRAZOLE 40 MG (PROTONIX) TAB PO SCH (09:10)
[2021-05-29] MEDS: CLOPIDOGREL 75 MG (PLAVIX) TABLET PO SCH (09:10)
[2021-05-29] MEDS: SENNA W/DOCUSATE (SENOKOT S) TABLET PO SCH (09:15)
[2021-05-29] MEDS: DOCUSATE SODIUM 100 MG (COLACE) CAP PO SCH (09:15)
[2021-05-29] MEDS: polyethylene glycoL POWDER 17 GM (MIRALAX) PACK PO SCH (09:15)
--- NOTE | 2021-05-29 10:14 | Progress Note - Cardiology ---
Cardiology SOAP Progress Note Subjective: No cp or palp or syncope or shortness of breath No n/v/d No swelling Objective: I&O/Vital Signs 05/29/21 05/29/21 05/29/21 01:00 06:39 07:46 Temp 36.6 Pulse 60 70 84 Resp 18 B/P (MAP) 143/63 (89) Pulse Ox 98 O2 Delivery Room Air Constitutional: AAO x 3, well-developed, well-nourished Respiratory: No accessory muscle use; other (good, bilateral air entry) Cardiovascular: regular rate-rhythm, S1 and S2, systolic murmur (faint DALILA at card basee) Gastrointestional: No tender; soft; No guarding, No rebound; audible bowel sounds Extremities: No clubbing, No cyanosis Neurologic/Psychiatric: oriented x 3, other (mild left upper and lower limb weakness) Skin: No rash on exposed areas, No ulcerations on exposed areas A/P: Assessment: 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
--- NOTE | 2021-05-29 10:19 | Therapy Team Discharge Summary ---
Therapy Discharge Summary Discharge Recommendations Date of Discharge Physical Therapy Patient came to rehab following a CVA. Upon evaluation patient performed bed mobility and supine <-> sit with independence, sit <-> stand and transfers with CGA, car transfer CGA, ambulated 200' with a rolling walker with CGA (including 50' with at least 2 turns of 90 degrees and 10' over an uneven surface), picked up an object from the floor with CGA, and went up and down 4 steps using 2 handrails with CGA. Patient has been performing bed mobility and transfer training, balance and endurance training, functional strengthening, stair training, gait training, and education. Patient has made good progress and has met all of her intermediate goals. Now, patient performs bed mobility and supine <-> sit with independence, sit <-> stand and transfers with setup, car transfer with setup, ambulates 200' without an assistive device with setup (including 50' with at least 2 turns of 90 degrees and 10' over an uneven surface), can slate picker an object from the floor with setup, and can go up and down 12 steps using 1 handrail with setup. Patient is being discharged from this facility today and will be discharged from PT at this time. Occupational Therapy Decreased UE Strength, Impaired Coordination, Impaired I ADL's PT Hand Wood Sander Goals Hand Wood Sander Goals PT Hand Wood Sander Goals Time Frame: Jun 10, 2021 Roll Left to Right (QC): 6 Sit to Lying (QC): 6 Lying-Sitting on Side/Bed(QC): 6 Sit to Stand (QC): 5 Chair/Fea-te-Degfb Xfer(QC): 5 Car Transfer (QC): 5 Does the Patient Walk: Yes Walk 10 feet (QC): 5 Walk 10ft-Uneven Surface(QC): 5 Walk 50ft with 2 Turns (QC): 5 Walk 150 ft (QC): 5 Wheel 50 feet with 2 turns (QC: 9 1 Step (curb) (QC): 4 (SBA) 4 Steps (QC): 4 (SBA) 12 Steps (QC): 88 Picking up an Object (QC): 4 (SBA) OT Intermediate Goals Intermediate Goals Eating (QC): 6 (met) Oral Hygiene (QC): 6 (met) Shower/Bathe Self (QC): 6 (met) Upper Body Dressing (QC): 6 (met) Lower Body Dressing (QC): 6 (met) On/Off Footwear (QC): 6 (partially met, set up for bunny hose only.) Toileting Hygiene (QC): 6 (met) Toilet/Commode Transfer (QC): 5 1=Demonstrate adherence to instructed precautions during ADL tasks. 2=Patient will verbalize/demonstrate understanding of assistive devices/modifications for ADL. 3=Patient will improve strength/tolerance for activity to enable patient to perform ADL's. AWAIS TERRY PT May 29, 2021 10:19
[2021-05-29 11:30] VITALS: BP 143/63
--- NOTE | 2021-05-29 12:55 | Therapy Team Discharge Summary ---
Therapy Discharge Summary Discharge Recommendations Date of Discharge 05/29/21 Therapy D/C Recommendations: Occupational Therapy Home Care, Homemaker Support Occupational Therapy Pt was a direct admit from [facility] in [facility] with acute thalamic stroke. Prior to admission,she was indep with ADLs and IADLs. She still drives and was not using any AD COMPLIANCE NURSE. 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 At time of eval, pt was: SBA/CGA with oral care, bathing, lower body dressing, and toileting tasks. She was set up for eating and upper body dressing. During her stay on ARU, OT focused on higher level balance, UE strengthening, functional transfers, activity tolerance, and overall endurance needed to perform ADLS and IADLs. Pt met all goals and left at Mod I for all ADLs. Pt discharged home and from OT. Decreased UE Strength, Impaired Coordination, Impaired I ADL's PT Chcf Goals Chcf Goals PT Manager Cleaning Goals Time Frame: Jun 10, 2021 Roll Left to Right (QC): 6 Sit to Lying (QC): 6 Lying-Sitting on Side/Bed(QC): 6 Sit to Stand (QC): 5 Chair/Yxi-kt-Ycobv Xfer(QC): 5 Car Transfer (QC): 5 Does the Patient Walk: Yes Walk 10 feet (QC): 5 Walk 10ft-Uneven Surface(QC): 5 Walk 50ft with 2 Turns (QC): 5 Walk 150 ft (QC): 5 Wheel 50 feet with 2 turns (QC: 9 1 Step (curb) (QC): 4 (SBA) 4 Steps (QC): 4 (SBA) 12 Steps (QC): 88 Picking up an Object (QC): 4 (SBA) OT Manager Cleaning Goals Chcf Goals Eating (QC): 6 (met) Oral Hygiene (QC): 6 (met) Shower/Bathe Self (QC): 6 (met) Upper Body Dressing (QC): 6 (met) Lower Body Dressing (QC): 6 (met) On/Off Footwear (QC): 6 (partially met, set up for bunny hose only.) Toileting Hygiene (QC): 6 (met) Toilet/Commode Transfer (QC): 5 1=Demonstrate adherence to instructed precautions during ADL tasks. 2=Patient will verbalize/demonstrate understanding of assistive devices/modifications for ADL. 3=Patient will improve strength/tolerance for activity to enable patient to perform ADL's. Erica Chun OT May 29, 2021 12:55
== END 2021-05-29 11:30 | disposition home or self-care (01) | DRG 57 ==
LOC: EDBD 16:17
PROVIDERS: ADMIT Internal Medicine; ATTEND Internal Medicine
DX: I69.354 Hemiplegia and hemiparesis following cerebral infarction affecting left non-dominant side (principal); I10 Essential (primary) hypertension; E78.5 Hyperlipidemia, unspecified; K21.9 Gastro-esophageal reflux disease without esophagitis; K44.9 Diaphragmatic hernia without obstruction or gangrene; Z79.82 Long term (current) use of aspirin
CPT/HCPCS: 36415; 80053; 85025; 93005; 93306; 93880